=== PATIENT | female | born 1970 | race Caucasian/White ===

== ENCOUNTER 2021-08-04 00:24 | Observation (INO) | payer MEDICARE, MEDICAID, SELFPAY ==
[2021-08-04] VITALS (45 sets, daily range): BP systolic 106–194; BP diastolic 62–96; PULSE 76–100; RESP 12–26; TEMP 35.9–36.7; O2SAT 94–100; BMI 48.3
--- NOTE | 2021-08-04 | ECHO_ITS ---
Patient Info Name: Rosalinda Manrique Age: 50 years : 1970 Gender: Female Ht: 65 in Wt: 290 lbs BSA: 2.53 m2 HR: 78 bpm Heart Rhythm: Sinus Rhythm Technical Quality: Good Exam Date: 08/04/2021 3:56 PM Exam Location: [facility] Patient Status: Inpatient Admit Date: 08/04/2021 Staff Ordering Physician: Myles Huff MD Highway Patrol Commander: Jennifer High RDCS Attending Provider: Urbano Damico MD Referring Physician: Refugio QUIROGA; Exam Type: CA echo doppler color flow Study Info Indications - palpitations chset pain Complete two-dimensional, color flow and Doppler transthoracic echocardiogram is performed. Summary 1. Complete two-dimensional, color flow and Doppler transthoracic echocardiogram is performed. 2. There is mild tricuspid valve regurgitation. 3. Left ventricular chamber dimension is normal. 4. There is mildly increased left ventricular wall thickness. 5. The left ventricular diastolic function is grade I diastolic dysfunction. 6. Left ventricular systolic function is hyperdynamic, estimated at >70%. Left Ventricle Left ventricular chamber dimension is normal. Left ventricular systolic function is hyperdynamic, estimated at >70%. There is mildly increased left ventricular wall thickness. The left ventricular diastolic function is grade I diastolic dysfunction. Right Ventricle Right ventricular chamber dimension is normal. Right ventricular systolic function is normal. Left Atria Left atrial chamber dimension is normal. Right Atria Right atrial chamber dimension is normal. Atrial Septum Intact interatrial septum visualized by color flow imaging. Aortic Valve The aortic valve is probable trileaflet. There is no aortic valve sclerosis. There is no aortic valve stenosis. There is trace aortic valve regurgitation. Pulmonic Valve The pulmonic valve is normal. There is no pulmonic valve stenosis. There is trace pulmonic regurgitation. Mitral Valve The mitral valve has normal leaflets. There is no mitral valve stenosis. There is trace mitral valve regurgitation. Tricuspid Valve There is mild tricuspid valve regurgitation. The tricuspid valve leaflets are normal. There is no significant tricuspid valve stenosis. No pulmonary hypertension, estimated pulmonary arterial systolic pressure is 33 mmHg. Pericardium/Pleural The pericardium appears normal. There is no pericardial effusion. Inferior Vena Cava Normal inferior vena cava with >50% collapse upon inspiration consistent with normal right atrial pressure, 8 mmHg. Aorta The aortic root size at the sinus of Valsalva is normal. Left Ventricular Outflow Tract Name Value Normal LVOT 2D LVOT Diameter 2.0 cm LVOT Doppler LVOT Peak Gradient 7 mmHg LVOT Mean Gradient 4 mmHg LVOT VTI 29 cm LVOT VTI/AV VTI Ratio 1.0 LVOT Stroke Volume 92 ml LVOT CO 19.0 l/min LVOT CI 7.5 l/min/m2
--- NOTE | ~2021-08-04 | CT_ITS ---
EXAMINATION: CTA chest PE abdomen pel DATE: 08/04/2021 03:00 INDICATION: Chest pain, elevated d-dimer. Elevated serum lipase and liver function tests TECHNIQUE: Computed tomography (CT) of the chest, abdomen and pelvis was performed without intravenou s contrast. Automated exposure control and iterative reconstruction technique were employed. Exam dos e: 2398.02 mGy-cm total exam DLP. COMPARISON: None FINDINGS: There is diagnostic contrast enhancement of pulmonary embolism evidence of pulmonary emboli sm. No thoracic aortic aneurysm or dissection. Heart size is within normal range. No pericardial or pleural effusion. No hilar or mediastinal mass lesion or lymphadenopathy. 4 mm left lower lobe nodule, likely a benign granuloma. There is mild discoid atelectasis or scarring in the right lower lobe and minimal bilateral upper and lower lobe dependent atelectasis. Small sliding hiatal hernia. Prominent diffuse hepatic steatosis. No hepatic space-occupying mass lesion is evident. The gallbladd er is distended. No bile duct or pancreatic duct dilatation. No pancreatic mass lesion or calcificati on or peripancreatic stranding or fluid. Normal splenic size. Normal morphology of the adrenal glands. 3 mm nonobstructing right renal calculus. Occasional bilateral small renal cysts, the largest approxi mately 9 mm. No ureteral calculus or hydroureteronephrosis. The urinary bladder is unremarkable. Status post hysterectomy. Normal caliber of the abdominal aorta. No intraperitoneal or retroperitoneal or pelvic mass lesion or adenopathy or ascites. Normal appendix. Minimal left colon diverticulosis; no CT evidence of diverticulitis. No bowel obstru ction or intraperitoneal free air. Battery pack is noted in the posterior right upper abdominal wall with electrodes extending along the posterior upper abdomen and thorax to the cervical spinal canal. Severe degenerative disc disease and mild retrolisthesis at L3-4. There is moderately severe degenera tive disc disease and minimal retrolisthesis at L5-S1. Electrodes are noted in the posterior cervical spinal canal. Status post surgical cervical spine spin al fusion. IMPRESSION: No evidence of pulmonary embolism Prominent diffuse hepatic steatosis Small hiatal hernia Small nonobstructing right renal stone Bilateral renal subcentimeter cysts Minimal left colon diverticulosis; no CT evidence of diverticulitis Status post hysterectomy Reviewed, dictated and finalized at [facility]. Reviewed, dictated and finalized at location [facility]. ER HELPER
--- NOTE | ~2021-08-04 | US_ITS ---
EXAMINATION: US right upper quadrant EXAM DATE: 08/04/2021 12:43 INDICATION: Right upper quadrant pain. TECHNIQUE: Multiple grayscale and Doppler images of the abdomen right upper quadrant were obtained (b y a technologist who performed the scan) and subsequently reviewed. There is no prior study for kimberly moe. FINDINGS: The pancreatic head and body are normal in appearance. The pancreatic tail is not visualized. There is echogenic liver parenchyma, hepatic steatosis. There are no focal liver lesions identified. Th ere is no evidence of intrahepatic biliary duct dilation. Portal venous flow was seen in the hepatop edal, normal direction and has normal Doppler waveform. No right-sided hydronephrosis. Common bile duct measures 6 mm, which is normal. The gallbladder wall is normal in thickness, with mi ld amount of distention. No sonographic evidence of pericholecystic fluid. There is no cholelithias es. Technologist reports patient had tenderness over the gallbladder region, but this is nonspecific in absence of other sonographic findings to suggest cholecystitis. IMPRESSION: 1. Mildly distended but otherwise unremarkable gallbladder. 2. Hepatic steatosis. Reviewed, dictated and finalized at location [facility]. ER
--- NOTE | ~2021-08-04 | XR_ITS ---
XR chest 2V DATE: 08/04/2021 00:56 INDICATION: Chest pain, elevated d-dimer. Elevated lipase and liver function tests. TECHNIQUE: AP and lateral views COMPARISON: None FINDINGS: Normal heart size. No hilar or mediastinal enlargement. No pulmonary infiltrate or consolid ation, pleural effusion or pulmonary vascular congestion or pneumothorax. Status post surgical cervical spinal fusion. Electrodes extending along the posterior abdomen and tho rax into the cervical spine area. IMPRESSION: No active cardiopulmonary disease Reviewed, dictated and finalized at location [facility]. [facility]
--- NOTE | 2021-08-04 00:36 | ECG_ITS ---
Measurements Intervals [place] Rate: 95 P: 42 [place]: 148 QRS: 1 QRSD: 109 T: 10 QT: 323 QTc: 407 Interpretive Statements SINUS RHYTHM POSSIBLE LEFT ATRIAL ENLARGEMENT BORDERLINE T WAVE ABNORMALITY- INFERIOR LEADS BASELINE ARTIFACT- I, II, III, AVR, AVL, AVF BORDERLINE ECG Electronically Signed On 08-04-2021 6:09:03 [employer] IN[employer] by Ruslan Ac D.O.
--- NOTE | 2021-08-04 00:49 | PC.NURSE ---
Pt to XRAY via stretcher at this time.
[2021-08-04] MEDS: NITROGLYCERIN SL 0.4 MG TABLET SUBLINGUAL (00:59)
--- NOTE | 2021-08-04 00:59 | PC.NURSE ---
Pt given 1st SL nitro tab, pain is an 8/10 currently.
--- NOTE | 2021-08-04 01:04 | PC.NURSE ---
2nd SL nitro given at this time, currently rates pain an 8/ - denies any relief
--- NOTE | 2021-08-04 01:09 | PC.NURSE ---
Pt given 3rd SL nitro, rates pain an 8/10, denies any relief.
[2021-08-04 01:20] LABS: Basophils Percent Auto 0.3 % (0.2-1.2); Eosinophils Absolute Auto 0.1 K/mm3 (0-0.3); Eosinophils Percent Auto 0.9 % (0-4.4); Hematocrit 40.2 % (37.0-47.0); Hemoglobin 13.4 g/dL (12.0-15.0); Immature Granulocyte Absolute 0.07 K/mm3 (0.00-0.031); Immature Granulocyte Percent A 0.8 % (0-0.5); Lymphocytes Absolute Auto 1.74 K/mm3 (0.9-3.2); Lymphocytes Percent Auto 19.1 % (18.3-44.2); Mean Corpuscular HGB Conc 33.3 g/dl (32-36); Mean Corpuscular Hemoglobin 29.3 pg (26-34); Monocytes Absolute Auto 0.2 K/mm3 (0.1-0.6); Monocytes Percent Auto 2.6 % (2.6-8.5); Neutrophils Absolute Auto 6.9 K/mm3 (1.3-6.7); Neutrophils Percent Auto 76.3 % (45.5-73.1); Platelet Count Result 221 k/mm3 (150-375); Red Blood Count 4.57 M/mm3 (4.2-5.4); White Blood Count 9.1 K/mm3 (4.5-10.0)
--- NOTE | 2021-08-04 01:22 | ED.CHESTPAIN ---
HPI - Chest Pain General Chief Complaint: Chest Pain Stated Complaint: chest pain Time Seen by Provider: 08/04/21 00:28 Source: patient Mode of arrival: EMS Limitations: no limitations History of Present Illness HPI narrative: This is a 50 year old female who presents for evaluation of chest pain. Patient states approximately 3 hours ago she was developed sudden onset of midsternal chest pain with nausea and vomiting. She describes her pain as squeezing and pressure. She reports some pain radiates to her back. She also reports shortness of breath and feeling that she can not take breath. She denies associated cough, fever, runny nose, congestion, leg swelling. She also denies history of DVT/PE. This pain feels similar to previous episode of panic attack but it feels more severe. She reports having cardiac evaluation over 15 years ago. Related Data Allergies Allergy/AdvReac Type Severity Reaction Status Date / Time meperidine Allergy Unknown Verified 08/04/21 00:35 Penicillins Allergy Unknown unknown Verified 08/04/21 00:35 prochlorperazine Allergy Unknown unknown Verified 08/04/21 00:35 Sulfa (Sulfonamide Allergy Unknown unknown Verified 08/04/21 00:35 Antibiotics) Review of Systems Review of Systems: All systems reviewed & are unremarkable except as noted in HPI and below PMFSH Past Medical History Medical History (Updated 08/04/21 @ 06:38 by Meagan Singer MD) Anxiety Chronic pain syndrome Hyperparathyroidism Hypertension Neuropathy Surgical History Surgical History (Updated 08/04/21 @ 01:56 by Meagan Singer MD) H/O parathyroidectomy H/O: hysterectomy S/P insertion of spinal cord stimulator Social History Social History (Updated 08/04/21 @ 01:23 by Meagan Singer MD) Smoking status: Never smoker Exam Const: General: alert; No diaphoretic Nutritional Appearance: obese Orientation/consciousness: patient oriented x3 Eyes: EOM: EOMs intact bilaterally Chest: Chest palpation & inspection: normal inspection of the chest Resp: Effort & Inspection: normal respiratory effort and no retractions Auscultation: clear to auscultation bilaterally Cardio: Rate: regular rate Rhythm: regular rhythm Heart sounds: no murmurs GI: GI Palp: Yes Soft to palpation, No Tenderness to palpation present (GI) and No Guarding due to palpation present (GI) Auscultation: normal bowel sounds Skin: General skin exam: normal color Rashes: no rashes Neuro: General: patient oriented x3, moves all extremities and CN's II-XI intact bilaterally Extrem: General: normal to inspection and no pedal edema Psych: Mental Status: mental status grossly normal Affect: normal affect Course Reevaluation(s) Reevaluation #1: I Discussed with patient potassium is low. She was recently started on HCTZ and she forgot to take her oral potassium. She also takes furosemide intermittently. She also reports intermittently elevated LFTs . She was made aware of plan to get CT and potassium supplementation Date: 08/04/21 Time: 01:54 Consultations Consultation #1: Dr. Damico agrees to obs patient to hospitalist service. Date: 08/04/21 Time: 04:06 Consultation #2: Dr. mendoza agrees to consult for chest pain Date: 08/04/21 Time: 06:38 Vital Signs Vital signs: Vital Signs Temperature 98.1 F 08/04/21 00:25 Pulse Rate 99 08/04/21 00:25 Respiratory Rate 12 08/04/21 00:25 Blood Pressure 194/93 H 08/04/21 00:25 Pulse Oximetry 99 08/04/21 00:25 Temperature 98.1 F 08/04/21 00:25 Pulse Rate 94 08/04/21 06:26 Respiratory Rate 18 08/04/21 06:26 Blood Pressure 154/62 H 08/04/21 05:14 Pulse Oximetry 96 08/04/21 06:26 MDM - Chest Pain Lab Data Attestation: I reviewed the patient's lab results. Result diagrams: 08/04/21 00:48 08/04/21 03:47 Labs: Lab Results 08/04/21 08/04/21 08/04/21 Range/Units 00:48 00:48 00:48 WBC 9.1 (4.5-10.0)
[2021-08-04] MEDS: LORazepam INJ (*CRX) 2 MG/ML VIAL 1 MG IV PUSH (01:31)
[2021-08-04 01:38] LABS: Partial Thromboplastin Time 21.8 SECONDS (22.3-36.8)
[2021-08-04 01:41] LABS: D Dimer 0.73 ug/mL (<0.48)
[2021-08-04 01:46] LABS: Troponin I < 0.012 ng/mL (0.000-0.034)
[2021-08-04 01:47] LABS: Alanine Aminotransferase 106 U/L (4-35); Albumin Level 4.2 g/dL (3.5-5.1); Alkaline Phosphatase 148 U/L (38-126); Anion Gap 12 mmol/L (8-16); Aspartate Amino Transferase 121 U/L (14-36); Bilirubin,Total 0.7 mg/dL (0.2-1.3); Blood Urea Nitrogen 18 mg/dL (7-17); Calcium 8.6 mg/dL (8.4-10.2); Carbon Dioxide 37 mmol/L (22-30); Chloride 85 mmol/L (98-107); Estimated CRCL calculation 102 ml/min; Estimated Glomerular Filt Rate > 60; Glucose 146 mg/dL (65-110); Lipase 432 U/L (23-300); Potassium 2.5 mmol/L (3.4-5.0); Sodium 134 mmol/L (137-145)
[2021-08-04] MEDS: POTASSIUM CHLORIDE 20 MEQ TABLET 40 MEQ PO ×2 (02:15→14:49)
[2021-08-04] MEDS: methylPREDNISolone SOD SUCC 125 MG VIAL IV PUSH (02:17)
[2021-08-04] MEDS: diphenhydrAMINE HCl INJ 50 MG/ML VIAL IV PUSH (02:18)
[2021-08-04] MEDS: POTASSIUM CHLORIDE INJ 40 MEQ in SODIUM CHLORIDE 0.9% IV 500 ML 130 MEQ IVPB (04:13)
[2021-08-04] MEDS: oxyCODONE/ACETAMINOPHEN (*CRX) 5-325 MG TABLET 2 TABLET PO (04:16)
[2021-08-04] MEDS: PANTOPRAZOLE SODIUM IV 40 MG VIAL IV PUSH ×2 (04:17→08:29)
[2021-08-04 04:19] LABS: Troponin I < 0.012 ng/mL (0.000-0.034)
[2021-08-04 04:21] LABS: Potassium 2.6 mmol/L (3.4-5.0)
[2021-08-04 05:33] LABS: SARS-CoV-2 RNA PCR Negative
[2021-08-04 08:12] LABS: Troponin I < 0.012 ng/mL (0.000-0.034)
[2021-08-04] MEDS: MORPHINE SULFATE (*CRX) 4 MG/ML INJ IV PUSH ×8 (08:29→23:57)
[2021-08-04] MEDS: ONDANSETRON INJ 4 MG/2 ML VIAL IV PUSH (10:29)
--- NOTE | 2021-08-04 11:50 | PC.NURSE ---
Dr Fergusonf here to assess patient
--- NOTE | 2021-08-04 12:06 | PM.IMHP ---
H&P: HPI History of Present Illness Date/Time: 08/04/21 12:06 ED-HPI narrative: This is a 50 year old female who presents for evaluation of chest pain. Patient states approximately 3 hours ago she was developed sudden onset of midsternal chest pain with nausea and vomiting. She describes her pain as squeezing and pressure. She reports some pain radiates to her back. She also reports shortness of breath and feeling that she can not take breath. She denies associated cough, fever, runny nose, congestion, leg swelling. She also denies history of DVT/PE. This pain feels similar to previous episode of panic attack but it feels more severe. She reports having cardiac evaluation over 15 years ago. 08/04/2021 patient presented with complaint of chest 3 sets of cardiac enzymes are negative there are no acute changes on EKG however it does show tachycardia seen by Cardiology does not suspect the fibrillation, currently patient states chest pain has improved however not patient complains of right upper quadrant pain and nausea some vomiting, to further evaluate will do the right upper quadrant ultrasound will consult general surgeon for further recommendation will continue to monitor. patient is admitted as observation status. Chief Complaint: chest pain Review of Systems Review of Systems: All systems reviewed & are unremarkable except as noted in HPI and below PMFSH Past Medical History Medical History Anxiety Chronic pain syndrome Hyperparathyroidism Hypertension Neuropathy Surgical History Surgical History H/O parathyroidectomy H/O: hysterectomy S/P insertion of spinal cord stimulator Social History Social History Smoking status: Never smoker Alcohol intake: never Substance use: never Spiritual care concerns: No Meds Home Medications and Allergies Home Medications Medication Instructions Recorded Confirmed Type Adults Multivitamin 1 tablet PO DAILY 08/04/21 08/04/21 History amitriptyline 10 mg HS 08/04/21 08/04/21 History amlodipine 10 mg PO DAILY 08/04/21 08/04/21 History cyanocobalamin (vitamin B-12) 1,000 mcg PO DAILY 08/04/21 08/04/21 History dextroamphetamine-amphetamine 20 mg PO DAILY 08/04/21 08/04/21 History [Adderall] duloxetine 30 mg PO DAILY 08/04/21 08/04/21 History ergocalciferol (vitamin D2) 50,000 unit WEEKLY 08/04/21 08/04/21 History estradiol 1 mg PO DAILY 08/04/21 08/04/21 History famotidine [Pepcid] 40 mg PO BID 08/04/21 08/04/21 History gabapentin 600 mg PO BID 08/04/21 08/04/21 History hydrochlorothiazide 25 mg DAILY 08/04/21 08/04/21 History hydroxychloroquine 200 mg PO BID 08/04/21 08/04/21 History hydroxyzine HCl 50 mg PO TID PRN 08/04/21 08/04/21 History lamotrigine 200 mg PO DAILY 08/04/21 08/04/21 History levomefolate calcium [Deplin] 15 mg PO DAILY 08/04/21 08/04/21 History methotrexate sodium 20 mg PO WEEKLY 08/04/21 08/04/21 History modafinil 200 mg PO QAM 08/04/21 08/04/21 History oxycodone-acetaminophen [Percocet] 1 tablet PO Q4H PRN 08/04/21 08/04/21 History potassium chloride 20 meq PO BID PRN 08/04/21 08/04/21 History promethazine 25 mg RECTAL Q6H PRN 08/04/21 08/04/21 History ropinirole 2 mg PO HS 08/04/21 08/04/21 History tizanidine 4 mg TID PRN 08/04/21 08/04/21 History zolpidem 12.5 mg PO HS 08/04/21 08/04/21 History Allergies Allergy/AdvReac Type Severity Reaction Status Date / Time meperidine Allergy Unknown Verified 08/04/21 00:35 Penicillins Allergy Unknown unknown Verified 08/04/21 00:35 prochlorperazine Allergy Unknown unknown Verified 08/04/21 00:35 Sulfa (Sulfonamide Allergy Unknown unknown Verified 08/04/21 00:35 Antibiotics) Vital Signs Vital Signs - 24 hr 08/04/21 00:25 08/04/21 00:35 08/04/21 01:00 Temperature 98.1 F Pulse Rate 99 93 90 Respiratory Rate 12
--- NOTE | 2021-08-04 12:08 | PC.NURSE ---
Dr. Gloria aware of patient and awaiting gallbladder ultrasound.
--- NOTE | 2021-08-04 12:20 | PC.NURSE ---
Dr Gloria here to assess patient. gallbladder US complete
--- NOTE | 2021-08-04 12:23 | PM.IMHP ---
H&P: HPI History of Present Illness Date/Time: 08/04/21 12:23 Pt is a 50 y/o F presenting to ED c/o severe chest pain, pressure radiating to back. Pt reports associated bloating, nausea. Pt reports similar previous episodes although less severe. Pt had been admitted to hospitalist service and cardiac workup has been initiated. CT does suggest GB distension. Labs show sl increase in liver enzymes and mild pancreatitis. Pt c h/o gastric bypass about 15 yrs ago. Chief Complaint: chest pain Review of Systems Constitutional: Constitutional: Reports as per HPI, Denies anorexia, Denies chills, Reports fatigue, Denies fever(s), Denies increased appetite, Reports lethargy, Reports malaise, Reports poor appetite, Reports weakness, Denies weight gain and Denies weight loss Eyes: Eyes: Reports no additional eye complaints ENT: Reports system reviewed and no additional complaints, except as documented Cardiovascular: Cardiovascular: Reports as per HPI, Reports chest pain, Denies leg edema and Reports dyspnea Respiratory: Respiratory: Reports dyspnea Gastrointestinal: Gastrointestinal: Reports abdominal pain, Reports bloating, Reports GI cramping, Reports heartburn, Reports nausea and Denies vomiting Genitourinary: Genitourinary: Reports no additional female genitourinary complaints Musculoskeletal: Musculoskeletal: Reports no additional musculoskeletal complaints Integumentary/Breasts: Skin/Breast: Reports system reviewed and no additional complaints, except as docu Neurologic: Reports system reviewed and no additional complaints, except as documented Psychiatric: Psychiatric: Reports no additional psychiatric complaints Endocrine: Endocrine: Reports no additional endocrine complaints Hematologic/Lymphatic: Hematologic/Lymphatic: Reports no additional hematologic/lymphatic complaints Allergic/Immunologic: Allergic/Immunologic: Reports no additional allergic/immunologic complaints [facility] Past Medical History Medical History Anxiety Chronic pain syndrome Hyperparathyroidism Hypertension Neuropathy Surgical History Surgical History H/O parathyroidectomy H/O: hysterectomy S/P insertion of spinal cord stimulator Social History Social History Smoking status: Never smoker Comments FH - denies CRC, IBD, known biliary dz Meds Home Medications and Allergies Home Medications Medication Instructions Recorded Confirmed Type amitriptyline 10 mg DAILY 08/04/21 08/04/21 History duloxetine 30 mg PO DAILY 08/04/21 08/04/21 History ergocalciferol (vitamin D2) 50,000 unit WEEKLY 08/04/21 History hydrochlorothiazide 25 mg DAILY 08/04/21 08/04/21 History tizanidine 4 mg TID PRN 08/04/21 History zolpidem 12.5 mg PO HS 08/04/21 08/04/21 History Allergies Allergy/AdvReac Type Severity Reaction Status Date / Time meperidine Allergy Unknown Verified 08/04/21 00:35 Penicillins Allergy Unknown unknown Verified 08/04/21 00:35 prochlorperazine Allergy Unknown unknown Verified 08/04/21 00:35 Sulfa (Sulfonamide Allergy Unknown unknown Verified 08/04/21 00:35 Antibiotics) Vital Signs Vital Signs - 24 hr 08/04/21 00:25 08/04/21 00:35 08/04/21 01:00 Temperature 36.7 C Pulse Rate 99 93 90 Respiratory Rate 12 13 Blood Pressure 194/93 H 157/74 H Pulse Oximetry 99 98 08/04/21 01:01 08/04/21 01:09 08/04/21 01:33 Temperature Pulse Rate 100 88 Respiratory Rate 22 H 20 Blood Pressure 119/65 173/82 H Pulse Oximetry 99 94 98 08/04/21 01:38 08/04/21 01:45 08/04/21 01:47 Temperature Pulse Rate 92 91 92 Respiratory Rate 17 13 16 Blood Pressure 176/88 H Pulse Oximetry 96 96 96 08/04/21 02:00 08/04/21 02:02 08/04/21 02:15 Temperature Pulse Rate 93 93 93 Respiratory Rate 17 15 13 Blood Pressure 164/78 H Pulse Oximetry 98 99 1
--- NOTE | 2021-08-04 13:23 | PM.CNCAR ---
Assessment and Plan Assessment and plan (1) Chest pain: Code(s): R07.9 - Chest pain, unspecified Status: Acute Assessment and Plan: Noncardiac chest pain. Chest pain is related to her gallbladder (2) Biliary acute pancreatitis: Code(s): K85.10 - Biliary acute pancreatitis without necrosis or infection Status: Acute Assessment and Plan: Her surgery (3) Acute hypokalemia: Code(s): E87.6 - Hypokalemia Status: Acute Assessment and Plan: Will replace a KCL 40 mEq p.o. x1. Probably related IV chlorothiazide (4) Hypertension: Code(s): I10 - Essential (primary) hypertension Status: Acute Assessment and Plan: Above goal but she is in pain also. (5) Palpitations: Code(s): R00.2 - Palpitations Status: Acute Assessment and Plan: Likely related to hypokalemia and benign. Will check a TSH, free T4 level, magnesium level and replace her potassium as detailed above. Will also check a 2D echocardiogram Doppler to ensure no structural abnormalities History of Present Illness History of Present Illness Consult date/time: 08/04/21 13:23 Requesting physician: Meagan Singer MD Consult reason: chest pain Reason For Visit: hypokalemia, chest pain, hypertension Narrative: Reason for consultation: Chest pain Date of service 08/04/2021 Requesting provider: Dr. Singer History patient is a 50-year-old female who does not have known cardiac history. She does have high blood pressure who presented to the hospital with nausea vomiting and epigastric/lower chest pain. Patient has had intermittent episodes of right upper quadrant pain for years. Over the past couple of days though had been much more frequent and then started yesterday and was constant for 3 hours prior to coming to the emergency department. She did have some radiation into her back. She also felt short of breath at the same time. Because of these symptoms she came to the hospital for further workup evaluation treatment. She ruled out for myocardial infarction. EKG was unremarkable. Further workup shows dilated gallbladder with elevated AST ALT and lipase. Surgeries already been consulted. Prior to these episodes, she has no exertional chest pain, syncope, presyncope, paroxysmal nocturnal dyspnea, orthopnea, edema. She has been having some palpitations which feels like skipped beats. This has gotten worse since restarting hydrochlorothiazide for blood pressure. Lab workup did show significant hypokalemia Review of Systems Review of Systems: All systems reviewed & are unremarkable except as noted in HPI and below Constitutional: Constitutional: Denies weakness Eyes: Eyes: Denies blurry vision ENT: Reports Normal hearing present Cardiovascular: Cardiovascular: Reports chest pain Respiratory: Respiratory: Reports dyspnea Gastrointestinal: Gastrointestinal: Reports abdominal pain Genitourinary: Genitourinary: Denies flank pain Musculoskeletal: Musculoskeletal: Reports back pain and Denies neck pain Integumentary/Breasts: Skin/Breast: Denies dry skin Neurologic: Denies headache(s) Psychiatric: Psychiatric: Denies anxiety and Denies confusion Endocrine: Endocrine: Denies fatigue Hematologic/Lymphatic: Hematologic/Lymphatic: Denies easy bleeding Allergic/Immunologic: Allergic/Immunologic: Denies GI upset with certain foods PMFSH Past Medical History Medical History Anxiety Chronic pain syndrome Hyperparathyroidism Hypertension Neuropathy Surgical History Surgical History H/O parathyroidectomy H/O: hysterectomy S/P insertion of spinal cord stimulator Social History Social History Smoking status: Never smoker Meds Home Medications and Allergies Home Medications Medication I
--- NOTE | 2021-08-04 13:55 | PC.NURSE ---
Dr Huff ordered for PO K+. patient has not had K+ level rechecked after having IV and po interventions previously. Spoke with DIE DESIGNER and new orders received
--- NOTE | 2021-08-04 14:35 | PC.NURSE ---
patient's family present at this time
[2021-08-04 14:36] LABS: Anion Gap 16 mmol/L (8-16); Blood Urea Nitrogen 16 mg/dL (7-17); Carbon Dioxide 27 mmol/L (22-30); Chloride 92 mmol/L (98-107); Estimated CRCL calculation 132 ml/min; Estimated Glomerular Filt Rate > 60; Glucose 146 mg/dL (65-110); Potassium 3.2 mmol/L (3.4-5.0); Sodium 135 mmol/L (137-145)
--- NOTE | 2021-08-04 17:07 | PC.NURSE ---
clarifying diet order with MD Rosenberg
--- NOTE | 2021-08-04 17:21 | PC.NURSE ---
MD thakur verified diet current diet low fat NPo at midnight and N.o received for cmp and cbc in am.
[2021-08-04] MEDS: HYDROXYCHLOROQUINE SULFATE 200 MG TABLET PO (18:27)
[2021-08-04] MEDS: GABAPENTIN 300 MG CAPSULE 600 MG PO (18:27)
[2021-08-04] MEDS: FAMOTIDINE 20 MG TABLET 40 MG PO (18:27)
--- NOTE | 2021-08-04 18:43 | PC.NURSE ---
This patient, Rosalinda Manrique, was admitted to [facility] Surg Room 316-01 at 1454. Patient/family oriented to hospital policies and general routines including ID bracelet, bed and alarms, visiting hours, pain management, procedures, bathroom and other care routines, personal items, smoking policy, room service/diet, and visiting hours. Information on how to activate the Rapid Response Team has been discussed. Patient/Family are encouraged to report perceived risks to care and to ask questions if they do not understand what they are told or what they should do.
[2021-08-04] MEDS: AMITRIPTYLINE HCL 10 MG TABLET BY MOUTH (21:16)
[2021-08-04] MEDS: rOPINIRole HCL 1 MG TABLET 2 MG PO (21:17)
[2021-08-05] MEDS: MORPHINE SULFATE (*CRX) 4 MG/ML INJ IV PUSH ×5 (02:35→11:40)
[2021-08-05 05:39] VITALS: BP 149/89; PULSE 100; RESP 18; TEMP 35.9; O2SAT 97
[2021-08-05 06:53] LABS: Hematocrit 37.5 % (37.0-47.0); Hemoglobin 12.4 g/dL (12.0-15.0); Mean Corpuscular HGB Conc 33.1 g/dl (32-36); Mean Corpuscular Hemoglobin 29.5 pg (26-34); Mean Corpuscular Volume 89.3 fl (80-100); Platelet Count Result 185 k/mm3 (150-375); White Blood Count 8.5 K/mm3 (4.5-10.0)
[2021-08-05 06:59] LABS: Alanine Aminotransferase 108 U/L (4-35); Alkaline Phosphatase 160 U/L (38-126); Anion Gap 11 mmol/L (8-16); Aspartate Amino Transferase 110 U/L (14-36); Blood Urea Nitrogen 17 mg/dL (7-17); Calcium 8.9 mg/dL (8.4-10.2); Carbon Dioxide 32 mmol/L (22-30); Chloride 92 mmol/L (98-107); Estimated CRCL calculation 102 ml/min; Estimated Glomerular Filt Rate > 60; Glucose 129 mg/dL (65-110); Lipase 607 U/L (23-300); Magnesium 2.2 mg/dL (1.6-2.3); Potassium 2.9 mmol/L (3.4-5.0); Sodium 135 mmol/L (137-145)
[2021-08-05 08:00] VITALS: PULSE 100; PULSE 98; RESP 18; O2SAT 97
--- NOTE | 2021-08-05 08:36 | PM.PNGS ---
Progress Note: A&P Assessment and Plan (1) Pancreatitis: Code(s): K85.90 - Acute pancreatitis without necrosis or infection, unspecified Status: Acute Assessment and Plan: resolving, ?etiology as U/S did not show any stones, exam benign this am, labs improving, long d/w pt and decision to proceed c low fat diet and likely discharge with f/u as outpt to further workup pancreatitis and poss cholecystectomy Subjective Subjective Date/Time Seen: 08/05/21 08:36 feels better today, brenda low fat diet yest for dinner Review of Systems Review of Systems: All systems reviewed & are unremarkable except as noted in HPI and below Exam Const: General: cooperative, comfortable and no acute distress Nutritional Appearance: obese Orientation/consciousness: patient oriented x3 Resp: Effort & Inspection: normal respiratory effort Auscultation: clear to auscultation bilaterally Cardio: Rate: regular rate Rhythm: regular rhythm GI: Inspection: normal to inspection and non-distended GI Palp: Yes Soft to palpation, No Tenderness to palpation present (GI), No Guarding due to palpation present (GI) and No Rigid due to palpation Objective Data Vital Signs Vital Signs: Vital Signs - 24 hr 08/04/21 09:23 08/04/21 09:30 08/04/21 09:45 Temperature Pulse Rate 89 89 92 Respiratory Rate 15 19 26 H Blood Pressure Pulse Oximetry 95 95 97 08/04/21 09:51 08/04/21 13:08 08/04/21 13:24 Temperature Pulse Rate 89 86 Respiratory Rate 15 Blood Pressure 172/83 H 168/96 H Pulse Oximetry 95 96 08/04/21 14:41 08/04/21 15:10 08/04/21 15:33 Temperature 35.9 C L 36.2 C L Pulse Rate 76 90 84 Respiratory Rate 16 18 16 Blood Pressure 166/76 H 165/91 H 156/73 H Pulse Oximetry 99 94 95 08/04/21 19:50 08/04/21 21:51 08/05/21 05:39 Temperature 36.0 C L 35.9 C L Pulse Rate 93 93 100 Respiratory Rate 18 18 18 Blood Pressure 106/96 H 149/89 H Pulse Oximetry 96 96 97 Intake/Output Intake/Output: Intake & Output 08/02/21 08/03/21 08/04/21 08/05/21 23:59 23:59 23:59 23:59 Intake Total 860 200 Balance 860 200 Meds/Results Medications: Active Medications Generic Name Dose Route Start Last Admin Trade Name Freq PRN Reason Stop Dose Admin Amitriptyline HCl 10 mg 08/04/21 21:00 08/04/21 21:16 Amitriptyline Hcl 10 Mg Tablet BY MOUTH 10 mg HS MABEL Administration Amlodipine Besylate 10 mg 08/05/21 09:00 Amlodipine Besylate 5 Mg Tablet PO DAILY [facility] Cyanocobalamin 1,000 mcg 08/05/21 09:00 Cyanocobalamin 1,000 Mcg Tablet PO DAILY [facility] Diphenhydramine HCl 25 mg 08/05/21 05:36 Diphenhydramine Hcl Inj 50 Mg/Ml Vial IV PUSH Q4H PRN Itching Duloxetine HCl 30 mg 08/05/21 09:00 Duloxetine Hcl 30 Mg Capsule.Dr PO DAILY [facility] Ergocalciferol 50,000 unit 08/05/21 09:00 Ergocalciferol 50,000 Unit Capsule BY MOUTH Fr@0900 [facility] Estradiol 1 mg 08/05/21 09:00 Estradiol 1 Mg Tablet PO DAILY [facility] Famotidine 40 mg 08/04/21 17:00 08/04/21 18:27 Famotidine 20 Mg Tablet PO 40 mg BID MABEL Administration Gabapentin 600 mg 08/04/21 17:00 08/04/21 18:27 Gabapentin 300 Mg Capsule PO 600 mg BID MABEL Administration Hydrochlorothiazide 25 mg 08/05/21 09:00 Hydrochlorothiazide 25 Mg Tablet BY MOUTH DAILY [facility] Hydroxychloroquine Sulfate 200 mg 08/04/21 17:00 08/04/21 18:27 Hydroxychloroquine Sulfate 200 Mg Tablet PO 200 mg BID [facility] Administration Hydroxyzine HCl 50 mg 08/04/21 16:37 Hydroxyzine Hcl 25 Mg Tablet PO TID PRN Itching Potassium Chloride 40 meq/ 520 mls @ 130 mls/hr 08/05/21 07:43 Sodium Chloride IVPB 08/05/21 11:42 ONCE ONE Lamotrigine 200 mg 08/05/21 09:00 Lamotrigine 100 Mg Tablet PO DAILY [facility] Methotrexate 20 mg 08/05/21 09:00 Methotrexate 2.5 Mg Tab (*Chemo) PO Fr@0900 [facility] Miscellaneous Information 1 each 08/04/21 00:01 Zofran/
[2021-08-05] MEDS: POTASSIUM CHLORIDE INJ 40 MEQ in SODIUM CHLORIDE 0.9% IV 500 ML 130 MEQ IVPB (08:38)
[2021-08-05] MEDS: GABAPENTIN 300 MG CAPSULE 600 MG PO (08:39)
[2021-08-05] MEDS: estradioL 1 MG TABLET PO (08:39)
[2021-08-05] MEDS: METHOTREXATE 2.5 MG TAB (*CHEMO) 20 MG PO (08:40)
[2021-08-05] MEDS: hydroCHLOROthiazide 25 MG TABLET BY MOUTH (08:40)
[2021-08-05] MEDS: HYDROXYCHLOROQUINE SULFATE 200 MG TABLET PO (08:41)
[2021-08-05] MEDS: CYANOCOBALAMIN 1,000 MCG TABLET 1000 MCG PO (08:41)
[2021-08-05] MEDS: DULoxetine HCL 30 MG CAPSULE.DR PO (08:41)
[2021-08-05] MEDS: MULTIVITAMINS THERAPEUTIC TAB (*BKC) 1 TABLET PO (08:41)
[2021-08-05] MEDS: lamoTRIgine 100 MG TABLET 200 MG PO (08:41)
[2021-08-05] MEDS: FAMOTIDINE 20 MG TABLET 40 MG PO (08:41)
[2021-08-05] MEDS: amLODIPine BESYLATE 5 MG TABLET 10 MG PO (08:41)
[2021-08-05] MEDS: modafiniL (*CRX) 200 MG TABLET PO (08:42)
[2021-08-05] MEDS: PANTOPRAZOLE SODIUM IV 40 MG VIAL IV PUSH (08:42)
[2021-08-05 08:57] LABS: Anion Gap 9 mmol/L (8-16); Blood Urea Nitrogen 16 mg/dL (7-17); Calcium 9.1 mg/dL (8.4-10.2); Carbon Dioxide 34 mmol/L (22-30); Chloride 91 mmol/L (98-107); Estimated CRCL calculation 91 ml/min; Estimated Glomerular Filt Rate > 60; Glucose 131 mg/dL (65-110); Sodium 134 mmol/L (137-145)
--- NOTE | 2021-08-05 09:39 | PC.NURSE ---
family stated pt anxious about swallowing pills, reported to [facility], swallow study ordered per [facility].
[2021-08-05] MEDS: POTASSIUM CHLORIDE 20 MEQ TABLET 40 MEQ PO (09:43)
[2021-08-05] MEDS: ERGOCALCIFEROL 50,000 UNIT CAPSULE 50000 UNITS BY MOUTH (10:13)
[2021-08-05 12:18] VITALS: PULSE 96
[2021-08-05 12:20] VITALS: PULSE 96
[2021-08-05 13:20] LABS: Anion Gap 8 mmol/L (8-16); Blood Urea Nitrogen 17 mg/dL (7-17); Carbon Dioxide 31 mmol/L (22-30); Chloride 94 mmol/L (98-107); Estimated CRCL calculation 91 ml/min; Estimated Glomerular Filt Rate > 60; Glucose 156 mg/dL (65-110); Potassium 3.7 mmol/L (3.4-5.0); Sodium 133 mmol/L (137-145)
--- NOTE | 2021-08-05 14:00 | PM.DS ---
DS: Admitting Diagnosis Discharge Date 08/05/2021 Admitting Diagnosis chest pain DS: Discharge Diagnosis Discharge Diagnosis (1) Pancreatitis: Code(s): K85.90 - Acute pancreatitis without necrosis or infection, unspecified Status: Acute Assessment and Plan: ED-HPI narrative: This is a 50 year old female who presents for evaluation of chest pain. Patient states approximately 3 hours ago she was developed sudden onset of midsternal chest pain with nausea and vomiting. She describes her pain as squeezing and pressure. She reports some pain radiates to her back. She also reports shortness of breath and feeling that she can not take breath. She denies associated cough, fever, runny nose, congestion, leg swelling. She also denies history of DVT/PE. This pain feels similar to previous episode of panic attack but it feels more severe. She reports having cardiac evaluation over 15 years ago. 08/04/2021 patient presented with complaint of chest 3 sets of cardiac enzymes are negative there are no acute changes on EKG however it does show tachycardia seen by Cardiology does not suspect the fibrillation, currently patient states chest pain has improved however not patient complains of right upper quadrant pain and nausea some vomiting, to further evaluate will do the right upper quadrant ultrasound will consult general surgeon for further recommendation will continue to monitor. (2) Palpitations: Code(s): R00.2 - Palpitations Status: Acute Assessment and Plan: patient was seen by Cardiology does not suspect atrial fibrillation most likely secondary to hyperkalemia will monitor and supplement (3) Acute hypokalemia: Code(s): E87.6 - Hypokalemia Status: Acute Assessment and Plan: most likely secondary to hydrochlorothiazide and poor p.o. intake, will hold hydrochlorothiazide and will monitor and supplement. (4) Hypertension: Code(s): I10 - Essential (primary) hypertension Status: Acute Assessment and Plan: upon arrival patient blood pressure was elevated most likely secondary to pain, is trending down, DS: Summary Hospital Course Reason for hospitalization: ED-HPI narrative: This is a 50 year old female who presents for evaluation of chest pain. Patient states approximately 3 hours ago she was developed sudden onset of midsternal chest pain with nausea and vomiting. She describes her pain as squeezing and pressure. She reports some pain radiates to her back. She also reports shortness of breath and feeling that she can not take breath. She denies associated cough, fever, runny nose, congestion, leg swelling. She also denies history of DVT/PE. This pain feels similar to previous episode of panic attack but it feels more severe. She reports having cardiac evaluation over 15 years ago. 08/04/2021 patient presented with complaint of chest 3 sets of cardiac enzymes are negative there are no acute changes on EKG however it does show tachycardia seen by Cardiology does not suspect the fibrillation, currently patient states chest pain has improved however not patient complains of right upper quadrant pain and nausea some vomiting, to further evaluate will do the right upper quadrant ultrasound will consult general surgeon for further recommendation will continue to monitor. patient is admitted as observation status. Chief Complaint: chest pain Hospital Course: today patient abdominal pain is better, right upper quadrant ultrasound did not show cholecystitis, her lipase a mildly elevated seen by does not recommend any surgical intervention, most likely patient has mild pancreatitis secondary to mildly inflamed gallbladder, patient is able to tolerate her diet is clinically stable will discharge the patient today Status at Discharge Functional status at discharge: independent ambulation Overall status at discharge: patient is back to baseline Time Spent with
[2021-08-05] MEDS: POTASSIUM CHLORIDE 20 MEQ PACKET (FOR LIQUID) 40 MEQ PO (14:08)
== END 2021-08-05 14:52 | disposition home or self-care (01) ==
LOC: ANHED 01:07 → ANHIMU 06:38 → ANH3MEDSUR 08-05 14:00 → ANHIMU 08-09 09:34
PROVIDERS: Nurse Practitioner; Surgery; Admitting Provider Internal Medicine; Emergency Provider General Practice; Visit Provider Family Medicine
DX: K85.10 Biliary acute pancreatitis without necrosis or infection (principal); R00.2 Palpitations; E87.6 Hypokalemia; R07.9 Chest pain, unspecified; R11.2 Nausea with vomiting, unspecified; R06.02 Shortness of breath; I10 Essential (primary) hypertension; E21.3 Hyperparathyroidism, unspecified; F41.9 Anxiety disorder, unspecified; G89.4 Chronic pain syndrome; G62.9 Polyneuropathy, unspecified; Z98.84 Bariatric surgery status; Z20.822 Contact with and (suspected) exposure to COVID-19
CPT/HCPCS: 36415; 71046; 71275; 74177; 76705; 80048; 80053; 83690; 83735; 84132; 84484; 85025; 85027; 85380; 85610; 85730; 93005; 93306; 96365; 96366; 96375; 96376; 99285; A9270; C9113; C9803; G0378; J1200; J2060; J2270; J2405; J2930; J3480; J7040; Q9967; U0003; U0005

== ENCOUNTER 2021-10-23 08:36 | Inpatient (IN) | payer MEDICARE, MEDICAID, SELFPAY ==
[2021-10-23] VITALS (26 sets, daily range): BP systolic 99–177; BP diastolic 57–99; PULSE 82–108; RESP 16–27; TEMP 36.6–36.8; O2SAT 90–100; BMI 42.2
[2021-10-23] MEDS: CHARCOAL ACTIVATED LIQUID 50 GM/240 ML BOTTLE PO (08:48)
--- NOTE | 2021-10-23 08:52 | ECG_ITS ---
Measurements Intervals [place] Rate: 100 P: 38 MD: 138 QRS: 7 QRSD: 96 T: 16 QT: 365 QTc: 471 Interpretive Statements SINUS TACHYCARDIA POSSIBLE INFERIOR MYOCARDIAL INFARCTION , PROBABLY OLD [40+ ms Q WAVE AND/OR ST/T ABNORMALITY IN II/aVF] ABNORMAL ECG COMPARED TO ECG 08/04/2021 00:33:41 SINUS TACHYCARDIA NOW PRESENT MYOCARDIAL INFARCT FINDING NOW PRESENT Electronically Signed On 10-24-2021 13:50:29 CDT by Myles Huff M.D.
--- NOTE | 2021-10-23 09:10 | ED.OVERDOSE ---
HPI - Overdose General Chief Complaint: Overdose Stated Complaint: unintentional norvasc overdose Time Seen by Provider: 10/23/21 08:48 Source: patient History of Present Illness HPI Narrative: Patient presents with an axonal ingestion of Norvasc. Patient reports she was attempting to take her lamotrigine grabbed the wrong bottle and took approximately 80 mg of Norvasc she called poison control and was referred to the ER for evaluation. Patient ports she feels lightheaded and dizzy. She denies any chest pain or short of breath. Denies any nausea or vomiting. She denies any intent to harm herself. Related Data Home Medications Medication Instructions Recorded Confirmed Adults Multivitamin 1 tablet PO DAILY 08/04/21 10/23/21 amitriptyline 10 mg HS 08/04/21 10/23/21 amlodipine 10 mg PO DAILY 08/04/21 10/23/21 cyanocobalamin (vitamin B-12) 1,000 mcg PO DAILY 08/04/21 10/23/21 dextroamphetamine-amphetamine 20 mg PO DAILY 08/04/21 10/23/21 [Adderall] duloxetine 30 mg PO DAILY 08/04/21 10/23/21 ergocalciferol (vitamin D2) 50,000 unit WEEKLY 08/04/21 10/23/21 estradiol 1 mg PO DAILY 08/04/21 10/23/21 famotidine [Pepcid] 40 mg PO BID 08/04/21 10/23/21 gabapentin 600 mg PO BID 08/04/21 10/23/21 hydroxychloroquine 200 mg PO BID 08/04/21 10/23/21 hydroxyzine HCl 50 mg PO TID PRN 08/04/21 10/23/21 lamotrigine 200 mg PO DAILY 08/04/21 10/23/21 levomefolate calcium 15 mg PO DAILY 08/04/21 10/23/21 methotrexate sodium 20 mg PO WEEKLY 08/04/21 10/23/21 modafinil 200 mg PO QAM 08/04/21 10/23/21 oxycodone-acetaminophen [Percocet] 1 tablet PO Q4H PRN 08/04/21 10/23/21 potassium chloride 20 meq PO BID PRN 08/04/21 10/23/21 promethazine 25 mg RECTAL Q6H PRN 08/04/21 10/23/21 ropinirole 2 mg PO HS 08/04/21 10/23/21 tizanidine 4 mg TID PRN 08/04/21 10/23/21 zolpidem 12.5 mg PO 08/04/21 10/23/21 Allergies Allergy/AdvReac Type Severity Reaction Status Date / Time amoxicillin Allergy Unknown Rash Verified 10/23/21 08:51 meperidine Allergy Unknown Verified 10/23/21 08:51 Penicillins Allergy Unknown unknown Verified 10/23/21 08:51 prochlorperazine Allergy Unknown unknown Verified 10/23/21 08:51 Sulfa (Sulfonamide Allergy Unknown unknown Verified 10/23/21 08:51 Antibiotics) Review of Systems Review of Systems: CONSTITUTIONAL: Denies fever, chills, or sweats. EYES: Denies visual changes, redness, or discharge. ENT: Denies rhinorrhea, congestion, sore throat, or otalgia. CARDIOVASCULAR: Denies chest pain, palpitations, or edema. RESPIRATORY: Denies cough or dyspnea. GASTROINTESTINAL: Denies abdominal pain, nausea, vomiting, or diarrhea. GENITOURINARY: Denies dysuria or hematuria. SKIN: Denies rash or itching. MUSCULOSKELETAL: Denies back pain, joint pain, or myalgia. NEUROLOGIC: Denies headache, numbness, or weakness. PSYCHIATRIC: Denies anxiety or depression. All systems reviewed & are unremarkable except as noted in HPI and below PMFSH Past Medical History Medical History (Updated 10/23/21 @ 13:35 by Ronald Rosas MD) Anxiety Chronic pain syndrome Hyperparathyroidism Hypertension Neuropathy Rheumatoid arteritis Surgical History Surgical History H/O parathyroidectomy H/O: hysterectomy S/P insertion of spinal cord stimulator Social History Social History Smoking status: Never smoker Alcohol intake: never Substance use: never Substance use type: does not use Spiritual care concerns: Yes Exam Narrative: GENERAL: Well-appearing, well-nourished, and in no acute distress. HEAD: Normocephalic, atraumatic. EYES: PERRLA and EOMI. ENT: Nares clear, no rhinorrhea or epistaxis. Mucous membranes moist. NECK: Supple. No masses. No JVD CHEST: Clear to auscultation. No respiratory distress. No wheezes rales or rhonchi HEART: Regular rate and rhythm. No murmur heard. Normal peripheral pulses. ABDOME
[2021-10-23 09:13] LABS: Glucose Point of Care 199 mg/dl (65-105)
[2021-10-23 09:24] LABS: Basophils Absolute Auto 0.1 K/mm3 (0.0-0.1); Basophils Percent Auto 0.6 % (0.2-1.2); Eosinophils Absolute Auto 0.3 K/mm3 (0-0.3); Eosinophils Percent Auto 2.8 % (0-4.4); Hematocrit 45.2 % (37.0-47.0); Hemoglobin 14.4 g/dL (12.0-15.0); Immature Granulocyte Absolute 0.03 K/mm3 (0.00-0.031); Immature Granulocyte Percent A 0.3 % (0-0.5); Lymphocytes Absolute Auto 3.06 K/mm3 (0.9-3.2); Lymphocytes Percent Auto 28.2 % (18.3-44.2); Mean Corpuscular HGB Conc 31.9 g/dl (32-36); Mean Corpuscular Hemoglobin 29.8 pg (26-34); Mean Corpuscular Volume 93.4 fl (80-100); Mean Platelet Volume 9.3 fl (7.4-10.4); Monocytes Absolute Auto 0.6 K/mm3 (0.1-0.6); Monocytes Percent Auto 5.8 % (2.6-8.5); Neutrophils Absolute Auto 6.8 K/mm3 (1.3-6.7); Neutrophils Percent Auto 62.3 % (45.5-73.1); Platelet Count Result 300 k/mm3 (150-375); Red Blood Count 4.84 M/mm3 (4.2-5.4); Red Cell Distribution Width 15.6 % (11.5-14.5); White Blood Count 10.8 K/mm3 (4.5-10.0)
[2021-10-23] MEDS: MORPHINE SULFATE (*CRX) 4 MG/ML INJ IV PUSH ×2 (09:25→12:29)
[2021-10-23 09:34] LABS: Alanine Aminotransferase 41 U/L (4-35); Albumin Level 4.6 g/dL (3.5-5.1); Alkaline Phosphatase 132 U/L (38-126); Anion Gap 11 mmol/L (8-16); Aspartate Amino Transferase 59 U/L (14-36); Bilirubin,Total 0.4 mg/dL (0.2-1.3); Blood Urea Nitrogen 14 mg/dL (7-17); Calcium 8.2 mg/dL (8.4-10.2); Carbon Dioxide 21 mmol/L (22-30); Chloride 103 mmol/L (98-107); Estimated CRCL calculation 92 ml/min; Estimated Glomerular Filt Rate > 60; Glucose 197 mg/dL (65-110); Sodium 135 mmol/L (137-145)
[2021-10-23] MEDS: SODIUM CHLORIDE 0.9% IV 2,000 ML 999 ML IV CONT (09:37)
--- NOTE | 2021-10-23 09:40 | PC.NURSE ---
Pt c/o dizziness and nausea, started fluids and laid pt down with a cool rag on her head. VORB for zofran
--- NOTE | 2021-10-23 09:45 | PC.NURSE ---
Pt states that she is itching from the morphine. Spoke with MD, orders for Atarax given.
[2021-10-23] MEDS: ONDANSETRON INJ 4 MG/2 ML VIAL IV PUSH (09:48)
[2021-10-23] MEDS: hydrOXYzine HCL 25 MG TABLET PO (09:55)
[2021-10-23] MEDS: SODIUM CHLORIDE 0.9% IV 1,000 ML 125 ML IV CONT (11:29)
--- NOTE | 2021-10-23 11:40 | PC.NURSE ---
Ferdinand at [place] [facility] called and given pt update. Per Ferdinand, continue supportive care and trend CMP.
--- NOTE | 2021-10-23 13:24 | WPDCNINT ---
Assessment and Plan Assessment and plan (1) Calcium channel robert overdose: Qualifiers: Encounter type: initial encounter Injury intent: accidental or unintentional Qualified Code(s): T46.1X1A - Poisoning by calcium-channel blockers, accidental (unintentional), initial encounter Code(s): T46.1X1A - Poisoning by calcium-channel blockers, accidental (unintentional), initial encounter Status: Acute Assessment and Plan: Accidental amlodipine overdose, she took amlodipine 10 mg x 8 pills is equal to 80 mg. As she realized she called poison controlled, was advised to go to the nearest ER. -patient received 2 L of IV fluid bolus in the ER -systolic blood pressures have been between 140s to 160s -continue to monitor blood pressures closely, along with heart rate (2) Hypertension: Code(s): I10 - Essential (primary) hypertension Status: Acute Assessment and Plan: Will hold all antihypertensive (3) Chronic pain syndrome: Code(s): G89.4 - Chronic pain syndrome Status: Acute Assessment and Plan: Will start home meds for chronic pain syndrome (4) Rheumatoid arthritis: Code(s): M06.9 - Rheumatoid arthritis, unspecified Status: Acute Assessment and Plan: Patient is on methotrexate and folic acid -last dose of methotrexate was on 10/21/2021 (5) DVT prophylaxis: Code(s): Z29.9 - Encounter for prophylactic measures, unspecified Status: Acute Assessment and Plan: SCDs Additional Plan Nutrition: Regular diet Code status: Full code Critical care time spent: 36 minutes This dictation may have been done utilizing a voice recognition system. Attempts have been made to correct errors. However, there may be uncorrected grammatical, spelling, and recognition errors present. Due to a high probability of clinically significant, life threatening deterioration, the patient required my highest level of preparedness to intervene emergently and I personally spent this critical care time directly and personally managing the patient. This critical care time included obtaining a history; examining the patient; pulse oximetry; ordering and review of studies; arranging urgent treatment with development of a management plan; evaluation of patient's response to treatment; frequent reassessment; and discussions with other providers. It was exclusive of separately billable procedures and treating other patients and teaching time. Please see Assessment and Plan section and the rest of the note for further information on patient assessment and treatment Safety Lamp Keeper Consult Note Consult date: 10/23/21 Time Seen: 13:04 Reason for consult: Accidental amlodipine overdose HPI: Rosalinda Manrique is a 51 year old female past medical history of chronic pain syndrome, C5-C6 fusion, patient has a spinal cord stimulator, hyperparathyroidism status post parathyroidectomy, essential hypertension, neuropathy, anxiety presented the ED on 10/23/2021 with complains accidental amlodipine overdose. Patient states that she normally takes 8 pills of lamotrigine and by mistake she took 8 pills of amlodipine. As soon as she realized she called poison Control, was advised to come to the ER. Patient received 2 L IV fluid bolus in the ER, systolic blood pressures have been in the 140s to 150s. Patient denies any chest pain, shortness of bed, abdominal pain, nausea, vomiting, diarrhea, dizziness, lightheadedness. Patient denies any alcohol, tobacco or illicit drug use. She is on disability. WBC count of 10.8, potassium was 3.0, creatinine 0.8, blood sugars 197, calcium 8.2, slightly elevated LFTs. Patient does not have any symptoms of COVID, she has not been vaccinated against COVID-19. Patient was transferred to the ICU for further management and monitoring of her blood pressures Review of Systems Review of Systems: All systems reviewed & are unremarkable except as noted in HPI and below
--- NOTE | 2021-10-23 14:05 | ADMGEN ---
This patient, Rosalinda Manrique, was admitted to Intensive Care Unit-4. Patient/family oriented to hospital policies and general routines including ID bracelet, bed and alarms, visiting hours, pain management, procedures, bathroom and other care routines, personal items, smoking policy, room service/diet, and visiting hours. Information on how to activate the Rapid Response Team has been discussed. Patient/Family are encouraged to report perceived risks to care and to ask questions if they do not understand what they are told or what they should do.
--- NOTE | 2021-10-23 14:21 | ADMGEN ---
This patient, Rosalinda Manrique, was admitted to Intensive Care Unit-4 at 1308. Patient/family oriented to hospital policies and general routines including ID bracelet, bed and alarms, visiting hours, pain management, procedures, bathroom and other care routines, personal items, smoking policy, room service/diet, and visiting hours. Information on how to activate the Rapid Response Team has been discussed. Patient/Family are encouraged to report perceived risks to care and to ask questions if they do not understand what they are told or what they should do.
--- NOTE | 2021-10-23 15:29 | PM.IMHP ---
H&P: HPI History of Present Illness Date/Time: Patient requires inpatient monitoring with expected length of stay to exceed 2 midnights for management of care. 10/23/21 15:29 Chief Complaint: Accidental overdose Narrative: Ms. Manrique is a 51-year-old female who presented emergency room after taking 8 of her 10 mg amlodipine. Patient states she thought she was taking her chewable lamotrigine, which she normally takes 8 of that once. Patient states she typically does not to her lamotrigine even though she is supposed to; she typically swallows the pills whole. Patient states that she typically has after taste when taking her lamotrigine, and when she takes the amlodipine she noticed there is no after taste and she lives at the bottle and realized what she had done. Patient states she immediately called poison Control and went to the emergency room. Patient states that when she arrived to the emergency room she was feeling fine and had no lightheadedness, dizziness, or near syncopal episodes. Patient states she was just very worried that her blood pressure may drop and wanted to be monitored. Patient states that while she was in the emergency room her blood pressure did decrease and she became very dizzy. Patient was then placed on IV fluids at bolus rate and there is significant improvement in her blood pressure. Patient did receive a dose of morphine while in the emergency room. Patient does have chronic pain to her back. Patient states she does have a back stimulator and takes multiple pain medications. Patient states she also does have a history of rheumatoid arthritis and fibromyalgia. Patient denies any chest pain, shortness a breath, palpitations, orthopnea, or PND. Patient states that this time she is feeling well. Patient has a known history of hypertension, chronic back pain, rheumatoid arthritis, fibromyalgia, renal calculi, and hyperparathyroidism status post parathyroidectomy of her 3 of her parathyroid glands Review of Systems Review of Systems: A 12 point review of systems was completed patient all pertinent positive and negative per HPI the remainder are unremarkable. [facility] Past Medical History Medical History Anxiety Chronic pain syndrome Hyperparathyroidism Hypertension Neuropathy Rheumatoid arteritis Surgical History Surgical History H/O parathyroidectomy H/O: hysterectomy S/P insertion of spinal cord stimulator Social History Social History Smoking status: Never smoker Alcohol intake: never Substance use: never Substance use type: does not use Spiritual care concerns: Yes Meds Home Medications and Allergies Home Medications Medication Instructions Recorded Confirmed Type Adults Multivitamin 1 tablet PO DAILY 08/04/21 10/23/21 History amitriptyline 10 mg HS 08/04/21 10/23/21 History amlodipine 10 mg PO DAILY 08/04/21 10/23/21 History cyanocobalamin (vitamin B-12) 1,000 mcg PO DAILY 08/04/21 10/23/21 History dextroamphetamine-amphetamine 20 mg PO DAILY 08/04/21 10/23/21 History [Adderall] duloxetine 30 mg PO DAILY 08/04/21 10/23/21 History ergocalciferol (vitamin D2) 50,000 unit WEEKLY 08/04/21 10/23/21 History estradiol 1 mg PO DAILY 08/04/21 10/23/21 History famotidine [Pepcid] 40 mg PO BID 08/04/21 10/23/21 History gabapentin 600 mg PO BID 08/04/21 10/23/21 History hydroxychloroquine 200 mg PO BID 08/04/21 10/23/21 History hydroxyzine HCl 50 mg PO TID PRN 08/04/21 10/23/21 History lamotrigine 200 mg PO DAILY 08/04/21 10/23/21 History levomefolate calcium 15 mg PO DAILY 08/04/21 10/23/21 History methotrexate sodium 20 mg PO WEEKLY 08/04/21 10/23/21 History modafinil 200 mg PO QAM 08/04/21 10/23/21 History oxycodone-acetaminophen [Percocet] 1 tablet PO Q4H PRN 08/04/21 10/23/21 History potassium chloride 20 meq PO BID PRN
[2021-10-23] MEDS: oxyCODONE HCL (*CRX) 5 MG TAB IR PO ×2 (16:10→20:17)
[2021-10-23] MEDS: oxyCODONE/ACETAMINOPHEN (*CRX) 5-325 MG TABLET 1 TABLET PO ×2 (16:11→20:17)
--- NOTE | 2021-10-23 16:19 | PC.NURSE ---
Spoke with Ferdinand byrd at the poison control center @ 1451, stated peak amlodipine times are 6-12 hours and to call with case #[id number]
[2021-10-23] MEDS: GABAPENTIN 300 MG CAPSULE 600 MG PO (17:37)
[2021-10-23] MEDS: HYDROXYCHLOROQUINE SULFATE 200 MG TABLET PO (17:37)
[2021-10-23] MEDS: hydrOXYzine HCL 25 MG TABLET 50 MG PO (20:17)
[2021-10-23] MEDS: ZOLPIDEM TARTRATE (*CRX) 5 MG TABLET 10 MG PO (20:18)
[2021-10-23] MEDS: FAMOTIDINE 20 MG TABLET 40 MG PO (20:19)
[2021-10-23] MEDS: rOPINIRole HCL 1 MG TABLET 2 MG PO (20:19)
[2021-10-23] MEDS: AMITRIPTYLINE HCL 10 MG TABLET 30 MG PO (20:23)
[2021-10-24] VITALS (10 sets, daily range): BP systolic 118–170; BP diastolic 72–96; PULSE 85–105; RESP 15–20; TEMP 36.7–36.9; O2SAT 93–98
[2021-10-24] MEDS: oxyCODONE/ACETAMINOPHEN (*CRX) 5-325 MG TABLET 1 TABLET PO ×5 (00:22→16:15)
[2021-10-24] MEDS: oxyCODONE HCL (*CRX) 5 MG TAB IR PO ×5 (00:23→16:15)
[2021-10-24 04:29] LABS: Basophils Absolute Auto 0.1 K/mm3 (0.0-0.1); Basophils Percent Auto 0.6 % (0.2-1.2); Eosinophils Absolute Auto 0.2 K/mm3 (0-0.3); Eosinophils Percent Auto 1.9 % (0-4.4); Hematocrit 39.9 % (37.0-47.0); Hemoglobin 12.7 g/dL (12.0-15.0); Immature Granulocyte Absolute 0.03 K/mm3 (0.00-0.031); Immature Granulocyte Percent A 0.4 % (0-0.5); Lymphocytes Absolute Auto 2.99 K/mm3 (0.9-3.2); Lymphocytes Percent Auto 35.5 % (18.3-44.2); Mean Corpuscular HGB Conc 31.8 g/dl (32-36); Mean Corpuscular Hemoglobin 30.2 pg (26-34); Mean Platelet Volume 9.3 fl (7.4-10.4); Monocytes Absolute Auto 0.5 K/mm3 (0.1-0.6); Monocytes Percent Auto 5.5 % (2.6-8.5); Neutrophils Absolute Auto 4.7 K/mm3 (1.3-6.7); Neutrophils Percent Auto 56.1 % (45.5-73.1); Platelet Count Result 251 k/mm3 (150-375); Red Cell Distribution Width 15.5 % (11.5-14.5); White Blood Count 8.4 K/mm3 (4.5-10.0)
[2021-10-24 04:39] LABS: Alanine Aminotransferase 33 U/L (4-35); Albumin Level 3.9 g/dL (3.5-5.1); Alkaline Phosphatase 147 U/L (38-126); Anion Gap 7 mmol/L (8-16); Aspartate Amino Transferase 30 U/L (14-36); Bilirubin,Total 0.3 mg/dL (0.2-1.3); Blood Urea Nitrogen 17 mg/dL (7-17); Calcium 7.9 mg/dL (8.4-10.2); Carbon Dioxide 23 mmol/L (22-30); Chloride 105 mmol/L (98-107); Estimated CRCL calculation 105 ml/min; Estimated Glomerular Filt Rate > 60; Glucose 122 mg/dL (65-110); Potassium 3.6 mmol/L (3.4-5.0); Sodium 135 mmol/L (137-145)
[2021-10-24] MEDS: hydrOXYzine HCL 25 MG TABLET 50 MG PO (05:54)
[2021-10-24] MEDS: TIZANIDINE HCL 4 MG TABLET PO (05:54)
[2021-10-24] MEDS: DULoxetine HCL 30 MG CAPSULE.DR PO (09:03)
[2021-10-24] MEDS: CYANOCOBALAMIN 1,000 MCG TABLET 1000 MCG PO (09:03)
[2021-10-24] MEDS: lamoTRIgine 100 MG TABLET 200 MG PO (09:04)
[2021-10-24] MEDS: FAMOTIDINE 20 MG TABLET 40 MG PO (09:04)
[2021-10-24] MEDS: estradioL 1 MG TABLET PO (09:04)
[2021-10-24] MEDS: ENOXAPARIN 40 MG/0.4 ML SYRINGE SUB-Q (09:04)
[2021-10-24] MEDS: GABAPENTIN 300 MG CAPSULE 600 MG PO ×2 (09:04→16:55)
[2021-10-24] MEDS: modafiniL (*CRX) 200 MG TABLET PO (09:05)
[2021-10-24] MEDS: MULTIVITAMINS THERAPEUTIC TAB (*BKC) 1 TABLET PO (09:05)
--- NOTE | 2021-10-24 09:32 | WPDINTPN ---
Progress Note: A&P Assessment and Plan (1) Calcium channel robert overdose: Qualifiers: Encounter type: initial encounter Injury intent: accidental or unintentional Qualified Code(s): T46.1X1A - Poisoning by calcium-channel blockers, accidental (unintentional), initial encounter Code(s): T46.1X1A - Poisoning by calcium-channel blockers, accidental (unintentional), initial encounter Status: Acute Assessment and Plan: Accidental amlodipine overdose, she took amlodipine 10 mg x 8 pills is equal to 80 mg. As she realized she called poison controlled, was advised to go to the nearest ER. -patient received 2 L of IV fluid bolus in the ER -systolic blood pressures have been between 130s to 170s all day yesterday and through the night in the ICU -continue to monitor blood pressures closely, along with heart rate (2) Hypertension: Code(s): I10 - Essential (primary) hypertension Status: Acute Assessment and Plan: Continue to hold antihypertensives (3) Chronic pain syndrome: Code(s): G89.4 - Chronic pain syndrome Status: Acute Assessment and Plan: Continue home meds for chronic pain syndrome (4) Rheumatoid arthritis: Code(s): M06.9 - Rheumatoid arthritis, unspecified Status: Acute Assessment and Plan: Patient is on methotrexate and folic acid -last dose of methotrexate was on 10/21/2021 (5) DVT prophylaxis: Code(s): Z29.9 - Encounter for prophylactic measures, unspecified Status: Acute Assessment and Plan: SCDs Additional Plan Nutrition: Regular diet Code status: Full code Critical care time spent: 31 minutes This dictation may have been done utilizing a voice recognition system. Attempts have been made to correct errors. However, there may be uncorrected grammatical, spelling, and recognition errors present. Due to a high probability of clinically significant, life threatening deterioration, the patient required my highest level of preparedness to intervene emergently and I personally spent this critical care time directly and personally managing the patient. This critical care time included obtaining a history; examining the patient; pulse oximetry; ordering and review of studies; arranging urgent treatment with development of a management plan; evaluation of patient's response to treatment; frequent reassessment; and discussions with other providers. It was exclusive of separately billable procedures and treating other patients and teaching time. Please see Assessment and Plan section and the rest of the note for further information on patient assessment and treatment Subjective Date/time seen: 10/24/21 09:32 Interval history: Reason for consult: Accidental amlodipine overdose 10/24/2021: Patient seen and examined the ICU, blood pressures have remained stable through the night slightly higher. Patient has been afebrile, adequate urine output, tolerating regular diet. Patient denies any shortness of breath. Her chronic pain is under control. No complaints at this time Review of Systems Review of Systems: All systems reviewed & are unremarkable except as noted in HPI and below Exam Narrative: General: Pleasant female in no acute distress HEENT: Pupils equal reactive, moist oral mucosa Neck: Supple, surgical scar noted Respiratory: Clear to auscultation bilaterally Cardiac: S1-S2 normal, regular rate and rhythm Abdomen: Soft, non tender, non distended, normoactive bowel sounds, protuberant Extremities: Mild pitting edema bilateral lower extremities, bilateral palpable pedal pulses Neuro: Patient is awake, alert, oriented x3, nonfocal, follows simple commands in all extremities and answers to questions appropriately Skin: No lesions noted, skin is dry and warm Psych: Normal mentation and normal affect Objective Data Vital Signs Vital Signs: Vital Signs - 24 hr 10/23/21 09:38 10/23/21 09:46 10/23/21
[2021-10-24] MEDS: HYDROXYCHLOROQUINE SULFATE 200 MG TABLET PO ×2 (10:24→16:55)
--- NOTE | 2021-10-24 15:30 | PM.DS ---
DS: Admitting Diagnosis Discharge Date 10/24/21 Admitting Diagnosis (1) Calcium channel robert overdose: Qualifiers: Encounter type: initial encounter Injury intent: accidental or unintentional Qualified Code(s): T46.1X1A - Poisoning by calcium-channel blockers, accidental (unintentional), initial encounter Code(s): T46.1X1A - Poisoning by calcium-channel blockers, accidental (unintentional), initial encounter Status: Acute Assessment and Plan: (2) Acute hypokalemia: Code(s): E87.6 - Hypokalemia Status: Acute Assessment and Plan: (3) Chronic pain syndrome: Code(s): G89.4 - Chronic pain syndrome Status: Acute Assessment and Plan: DS: Discharge Diagnosis Discharge Diagnosis (1) Rheumatoid arthritis: Code(s): M06.9 - Rheumatoid arthritis, unspecified Status: Acute (2) Chronic pain syndrome: Code(s): G89.4 - Chronic pain syndrome Status: Acute (3) Calcium channel robert overdose: Qualifiers: Encounter type: initial encounter Injury intent: accidental or unintentional Qualified Code(s): T46.1X1A - Poisoning by calcium-channel blockers, accidental (unintentional), initial encounter Code(s): T46.1X1A - Poisoning by calcium-channel blockers, accidental (unintentional), initial encounter Status: Acute (4) Hypertension: Code(s): I10 - Essential (primary) hypertension Status: Acute (5) Acute hypokalemia: Code(s): E87.6 - Hypokalemia Status: Acute DS: Summary Hospital Course Reason for hospitalization: CCB accidental over dose Hospital Course: 10/23/21 Patient did not intentionally overdosed on her Norvasc. At this point time will continue with IV fluids. Patient's blood pressure is stable and actually elevated at this time. Will decrease IV fluids to 75 cc an hour and if blood pressure remains elevated will discontinue fluids altogether. Patient states she feels very well. Will monitor patient overnight was likely be able to discharge in the morning. Will give patient oral supplementation of potassium and recheck levels in a.m.. Will resume patient's chronic pain medication and monitor blood pressure since she did take a large dose of amlodipine. Patient is on a significant amount of medications secondary to her return with radius, chronic back pain, and fibromyalgia. 10/24/21 pt monitored overnight and BP stable cleared for dc by travel registered nurse nicu pt discharged home in stable condition w indications to follow up w PCP and to be cautious when taking medications Status at Discharge Overall status at discharge: patient is back to baseline Time Spent with Patient Time attestation: Total time spent providing and/or coordinating discharge services: Time spent: Less than 30 minutes Exam Narrative: GEN: well-nourished in no acute distress. alert and oriented x3 HEENT: Moist mucous membranes. No scleral icterus. Neck: No carotid bruits noted no JVD noted surgical scar over middle anterior neck at level of neck fold Lungs: Lung sounds are clear to auscultation bilaterally. No accessory muscle use. No rhonchi, rales, or wheezes noted. Cardiovascular: S1-S2 tachycardia Extremities: No edema. Nontender. Skin: No rashes or lesions. Warm and dry. Skin is intact. Neurological: No focal neurological deficits. Cranial nerves II-XII grossly intact. Psychiatric: Cooperative, appropriate mood, and affect DS: Data Data Completed and Pending Labs on day of discharge: Labs from last 24 hours 10/24/21 10/24/21 04:15 04:15 WBC 8.4 RBC 4.20 Hgb 12.7 Hct 39.9 MCV 95.0 MCH 30.2 MCHC 31.8 L RDW 15.5 H Plt Count 251 MPV 9.3 Immature Gran % (Auto) 0.4 Neut % (Auto) 56.1 Lymph % (Auto) 35.5 Buchanan % (Auto) 5.5 Eos % (Auto) 1.9 Baso % (Auto) 0.6 Lymph # (Auto) 2.99 Buchanan # (Auto) 0.5 Eos # (Auto) 0.2 Baso # (Auto) 0.1 Abs Immat Gran (a
== END 2021-10-24 17:05 | disposition home or self-care (01) | DRG 918 ==
LOC: ANHED 11:04 → ANHICU 13:03
PROVIDERS: Nurse Practitioner Adult Health; Admitting Provider Internal Medicine; Emergency Provider Emergency Medicine; Visit Provider Hospitalist
DX: T46.1X1A Poisoning by calcium-channel blockers, accidental (unintentional), initial encounter (principal); R42 Dizziness and giddiness; E87.6 Hypokalemia; Y92.9 Unspecified place or not applicable; Z88.0 Allergy status to penicillin; Z88.2 Allergy status to sulfonamides; F41.9 Anxiety disorder, unspecified; G89.4 Chronic pain syndrome; E21.3 Hyperparathyroidism, unspecified; G62.9 Polyneuropathy, unspecified; M06.9 Rheumatoid arthritis, unspecified; I10 Essential (primary) hypertension; Z98.1 Arthrodesis status; Z96.82 Presence of neurostimulator; M79.7 Fibromyalgia
CPT/HCPCS: 36415; 80053; 82948; 83735; 85025; 93005; 96361; 96374; 96375; 96376; 99285; A9270; C1751; G0378; J1650; J2270; J2405; J7030

== ENCOUNTER 2021-11-16 16:29 | Inpatient (IN) | payer MEDICARE, MEDICAID, SELFPAY ==
[2021-11-16] VITALS (9 sets, daily range): BP systolic 162–197; BP diastolic 69–109; PULSE 113–117; RESP 16–18; TEMP 36.6; O2SAT 95–100
--- NOTE | ~2021-11-16 | NM_ITS ---
EXAMINATION: NM hepatobiliary w pharm DATE: 11/21/2021 14:00 INDICATION: Right upper quadrant abdominal pain. Elevated liver enzymes. COMPARISON: None. TECHNIQUE: 4.3 mCi Tc-99m mebrofenin (Choletec) was administered intravenously. Scintigraphic images of the abdomen were obtained for one hour. 2.4 mcg sincalide (Kinevac) was administered by slow intr avenous infusion, and imaging was continued for 30 minutes. Gallbladder ejection fraction was calcula nazario by the technologist. FINDINGS: There is normal clearance of radiotracer from the blood pool. There is homogeneous tracer uptake by t he liver. Activity progresses to the gallbladder and bowel. The gallbladder ejection fraction (GBEF) is 90% (normal 10-90%, but most patient with gallbladder dysfunction have GBEF < 35% which does over lap with the normal range). IMPRESSION: 1. Normal hepatobiliary scan. Reviewed, dictated and finalized at location A.
--- NOTE | ~2021-11-16 | CT_ITS ---
EXAMINATION: CT abdomen pelvis wo con DATE: 11/16/2021 19:53 INDICATION: nausea , elevated liver enzymes TECHNIQUE: Computed tomography (CT) of the abdomen and pelvis was performed without intravenous contr ast. Automated exposure control and iterative reconstruction technique were employed. The dose-length product was 1619.32 mGy-cm. COMPARISON: None FINDINGS: Lower thorax: Unremarkable Liver: Steatosis Biliary/Gallbladder: Gallbladder is enlarged. No wall thickening, stone, sludge, or pericholecystic f luid. No bile duct dilation. Spleen: Normal. Pancreas: No mass or duct dilation. Adrenals:No mass. Kidneys: Nonobstructive bilateral calculi. GI tract: No small or large bowel dilation. Normal appendix. Prior gastric bypass. Mesentery/Peritoneum: No ascites, mass, or free air. Retroperitoneum: No mass.. Pelvis: Pelvic organs are within normal limits. Soft Tissues: Soft tissues and body wall unremarkable. Bones: No acute osseous finding. IMPRESSION: Steatosis. Gallbladder hydrops of uncertain etiology. There is no CT evidence of cholelithiasis, acut e cholecystitis, or biliary duct dilation. Reviewed, dictated and finalized at location K. IMPRESSION: Steatosis. Gallbladder hydrops of uncertain etiology. There is no CT evidence o f cholelithiasis, acute cholecystitis, or biliary duct dilation.
--- NOTE | ~2021-11-16 | US_ITS ---
EXAMINATION: US abdomen limited DATE: 11/17/2021 09:16 INDICATION: Nausea and vomiting TECHNIQUE: Multiple grayscale and Doppler ultrasound images of the abdomen were obtained. COMPARISON: 08/04/[address] from yesterday FINDINGS: Bowel gas obscures visualization of the pancreas. The liver demonstrates increased echogeni city, heterogenous echotexture, and decreased through transmission. No surface nodularity. Normal hep atopetal flow in the main portal vein. The gallbladder is distended. No gallstones or pericholecystic fluid are identified. The mildly dilated common bile duct measures 7 mm. There was no sonographic Mu rphy sign. IMPRESSION: 1. Persistent mild distention of the gallbladder and common bile duct of unclear etiology. 2. Diffuse hepatic steatosis. Reviewed, dictated and finalized at location B. IMPRESSION: 1. Persistent mild distention of the gallbladder and common bile duct of unclea r etiology. 2. Diffuse hepatic steatosis.
--- NOTE | 2021-11-16 16:46 | PC.NURSE ---
attempted blood draw in triage. unsuccessful.
--- NOTE | 2021-11-16 18:36 | PC.NURSE ---
when pt was asked for urine specimen, pt states I dropped mine in the waiting room earlier. I don't have to go right now .
[2021-11-16] MEDS: SODIUM CHLORIDE 0.9% IV 1,000 ML 150 ML IV CONT (18:41)
[2021-11-16] MEDS: ONDANSETRON INJ 4 MG/2 ML VIAL IV PUSH ×2 (18:41→23:29)
[2021-11-16 18:44] LABS: Basophils Absolute Auto 0.1 K/mm3 (0.0-0.1); Basophils Percent Auto 0.7 % (0.2-1.2); Eosinophils Absolute Auto 0.1 K/mm3 (0-0.3); Hematocrit 45.4 % (37.0-47.0); Hemoglobin 15.7 g/dL (12.0-15.0); Immature Granulocyte Absolute 0.13 K/mm3 (0.00-0.031); Lymphocytes Absolute Auto 3.24 K/mm3 (0.9-3.2); Mean Corpuscular HGB Conc 34.6 g/dl (32-36); Mean Corpuscular Hemoglobin 29.2 pg (26-34); Mean Corpuscular Volume 84.4 fl (80-100); Mean Platelet Volume 9.5 fl (7.4-10.4); Monocytes Absolute Auto 0.9 K/mm3 (0.1-0.6); Monocytes Percent Auto 6.9 % (2.6-8.5); Neutrophils Percent Auto 64.4 % (45.5-73.1); Platelet Count Result 297 k/mm3 (150-375); Red Blood Count 5.38 M/mm3 (4.2-5.4); Red Cell Distribution Width 14.4 % (11.5-14.5); White Blood Count 12.5 K/mm3 (4.5-10.0)
[2021-11-16 19:02] LABS: Albumin Level 3.8 g/dL (3.5-5.1); Alkaline Phosphatase 304 U/L (38-126); Anion Gap 8 mmol/L (8-16); Blood Urea Nitrogen 21 mg/dL (7-17); Calcium 8.4 mg/dL (8.4-10.2); Carbon Dioxide 26 mmol/L (22-30); Chloride 96 mmol/L (98-107); Estimated CRCL calculation 83 ml/min; Estimated Glomerular Filt Rate > 60; Glucose 158 mg/dL (65-110); Lipase 321 U/L (23-300); Potassium 3.3 mmol/L (3.4-5.0); Sodium 130 mmol/L (137-145)
[2021-11-16 19:26] LABS: Alanine Aminotransferase 1263 U/L (4-35); Aspartate Amino Transferase 903 U/L (14-36)
[2021-11-16] MEDS: fentaNYL CITRATE INJ (*CRX) 100 MCG/2 ML VIAL 50 MCG IV PUSH (19:34)
[2021-11-16] MEDS: diphenhydrAMINE HCl INJ 50 MG/ML VIAL IV PUSH (20:05)
[2021-11-16] MEDS: HYDROmorphone HCL INJ (*CRX) 1 MG/ML SYR IM (21:07)
[2021-11-16 21:55] LABS: SARS-CoV-2 RNA PCR Negative
--- NOTE | 2021-11-16 21:57 | ED.GENADULT ---
HPI - General Adult General Chief complaint: Nausea/Vomiting/Diarrhea Stated complaint: n/v Time Seen by Provider: 11/16/21 18:26 Related Data Home Medications Medication Instructions Recorded Confirmed amitriptyline 10 mg HS 08/04/21 10/23/21 amlodipine 10 mg PO DAILY #0 08/04/21 10/23/21 cyanocobalamin (vitamin B-12) 1,000 mcg PO DAILY #0 08/04/21 10/23/21 dextroamphetamine-amphetamine 20 mg PO DAILY 08/04/21 10/23/21 [Adderall] duloxetine 30 mg PO DAILY 08/04/21 10/23/21 ergocalciferol (vitamin D2) 50,000 unit WEEKLY 08/04/21 10/23/21 estradiol 1 mg PO DAILY 08/04/21 10/23/21 famotidine [Pepcid] 40 mg PO BID 08/04/21 10/23/21 gabapentin 600 mg PO BID 08/04/21 10/23/21 hydroxychloroquine 200 mg PO BID 08/04/21 10/23/21 hydroxyzine HCl 50 mg PO TID PRN 08/04/21 10/23/21 lamotrigine 200 mg PO DAILY 08/04/21 10/23/21 levomefolate calcium 15 mg PO DAILY 08/04/21 10/23/21 methotrexate sodium [Methotrexate 20 mg PO WEEKLY #0 08/04/21 10/25/21 (Anti-Rheumatic)] modafinil 200 mg PO QAM 08/04/21 10/23/21 multivitamin [A To Z Multivitamin] 1 tablet PO DAILY #0 08/04/21 10/23/21 oxycodone-acetaminophen [Percocet] 1 tablet PO Q4H PRN 08/04/21 10/23/21 potassium chloride 20 meq PO BID PRN #0 08/04/21 10/23/21 promethazine 25 mg RECTAL Q6H PRN #0 08/04/21 10/23/21 ropinirole 2 mg PO HS 08/04/21 10/23/21 tizanidine 4 mg TID PRN 08/04/21 10/23/21 zolpidem 12.5 mg PO HS 08/04/21 10/23/21 Allergies Allergy/AdvReac Type Severity Reaction Status Date / Time amoxicillin Allergy Unknown Rash Verified 11/16/21 18:27 meperidine Allergy Unknown Verified 11/16/21 18:27 Penicillins Allergy Unknown unknown Verified 11/16/21 18:27 prochlorperazine Allergy Unknown unknown Verified 11/16/21 18:27 Sulfa (Sulfonamide Allergy Unknown unknown Verified 11/16/21 18:27 Antibiotics) Review of Systems Review of Systems: All systems reviewed & are unremarkable except as noted in HPI and below Constitutional: Constitutional: Reports no additional constitutional complaints Eyes: Eyes: Reports no additional eye complaints ENT: Reports system reviewed and no additional complaints, except as documented Cardiovascular: Cardiovascular: Reports no additional cardiovascular complaints Respiratory: Respiratory: Reports no additional respiratory complaints Gastrointestinal: Gastrointestinal: Reports as per HPI Genitourinary: Genitourinary: Reports no additional female genitourinary complaints Musculoskeletal: Musculoskeletal: Reports as per HPI Integumentary/Breasts: Skin/Breast: Reports system reviewed and no additional complaints, except as docu Neurologic: Reports system reviewed and no additional complaints, except as documented Psychiatric: Psychiatric: Reports no additional psychiatric complaints [facility] Past Medical History Medical History Anxiety Chronic pain syndrome Hyperparathyroidism Hypertension Neuropathy Rheumatoid arteritis Surgical History Surgical History H/O parathyroidectomy H/O: hysterectomy S/P insertion of spinal cord stimulator Social History Social History Smoking status: Never smoker Alcohol intake: never Substance use: never Substance use type: does not use Spiritual care concerns: Yes Exam Narrative: GENERAL: ill -appearing, obese , and in no acute distress. HEAD: Normocephalic, atraumatic. EYES: PERRLA and EOMI.. NECK: Supple. CHEST: Clear to auscultation. No respiratory distress. HEART: Regular rate and rhythm. No murmur heard. Normal peripheral pulses. ABDOMEN: Soft, nontender, nondistended, normal active bowel sounds. EXTREMITIES: Normal range of motion. No edema. SKIN: Warm, dry, no rash. NEURO: No focal deficits. Alert and oriented x3. PSYCH: Normal mood and affect. Course Course Emergency Course: Patient has diff
[2021-11-16 22:46] LABS: Add Urine Microscopic? NO; Appearance Urine Clear (Clear); Bilirubin Urine Negative (Negative); Blood Urine Negative (Negative); Color Urine Yellow (Yellow); Glucose Urine UA Negative (Negative); Ketones Urine Negative (Negative); Leukocyte Esterase Ur Negative LEU/UL (Negative); Nitrate Urine Negative (Negative); Protein Urine Negative (Negative); Specific Grav Ur 1.025 (1.001-1.035); Urobilinogen Urine 0.2 mg/dL (<2.0); pH Urine 5.5 (5.0-9.0)
[2021-11-16 22:52] LABS: Bacteria Urine Trace /hpf; Mucus Urine Moderate /lpf; RBC Urine 0-2 /hpf (0-2); Squamous Epithelial Cell Urine Few /hpf (Few)
[2021-11-16] MEDS: ERTAPENEM 1 GM/NS 50 ML 1 GM/50 ML BAG IVPB (23:28)
[2021-11-16] MEDS: HYDROmorphone HCL INJ (*CRX) 1 MG/ML SYR 0.5 MG IV PUSH (23:30)
[2021-11-17] VITALS (8 sets, daily range): BP systolic 131–217; BP diastolic 61–94; PULSE 78–105; RESP 18–20; TEMP 36.6–37.1; O2SAT 93–98; BMI 44.1
[2021-11-17] MEDS: SODIUM CHLORIDE 0.9% IV 1,000 ML 125 ML IV CONT (01:39)
--- NOTE | 2021-11-17 03:09 | ADMGEN ---
0045 This patient, Rosalinda Manrique, was admitted to 3 [facility] Surg Room 331-01. Patient/family oriented to hospital policies and general routines including ID bracelet, bed and alarms, visiting hours, pain management, procedures, bathroom and other care routines, personal items, smoking policy, room service/diet, and visiting hours. Information on how to activate the Rapid Response Team has been discussed. Patient/Family are encouraged to report perceived risks to care and to ask questions if they do not understand what they are told or what they should do.
[2021-11-17] MEDS: diphenhydrAMINE HCl INJ 50 MG/ML VIAL 25 MG IV PUSH (03:15)
[2021-11-17] MEDS: HYDROmorphone HCL INJ (*CRX) 1 MG/ML SYR 0.5 MG IV PUSH ×5 (04:37→22:00)
[2021-11-17 06:34] LABS: Basophils Absolute Auto 0.1 K/mm3 (0.0-0.1); Basophils Percent Auto 0.6 % (0.2-1.2); Eosinophils Absolute Auto 0.2 K/mm3 (0-0.3); Eosinophils Percent Auto 2.1 % (0-4.4); Hemoglobin 13.8 g/dL (12.0-15.0); Immature Granulocyte Absolute 0.09 K/mm3 (0.00-0.031); Lymphocytes Percent Auto 31.1 % (18.3-44.2); Mean Corpuscular HGB Conc 32.9 g/dl (32-36); Mean Corpuscular Hemoglobin 29.2 pg (26-34); Mean Corpuscular Volume 88.8 fl (80-100); Mean Platelet Volume 9.7 fl (7.4-10.4); Monocytes Absolute Auto 0.7 K/mm3 (0.1-0.6); Monocytes Percent Auto 7.9 % (2.6-8.5); Neutrophils Absolute Auto 5.3 K/mm3 (1.3-6.7); Neutrophils Percent Auto 57.3 % (45.5-73.1); Platelet Count Result 222 k/mm3 (150-375); Red Blood Count 4.73 M/mm3 (4.2-5.4); Red Cell Distribution Width 14.6 % (11.5-14.5); White Blood Count 9.3 K/mm3 (4.5-10.0)
[2021-11-17 06:52] LABS: Albumin Level 3.4 g/dL (3.5-5.1); Alkaline Phosphatase 240 U/L (38-126); Anion Gap 8 mmol/L (8-16); Aspartate Amino Transferase 580 U/L (14-36); Bilirubin,Total 1.4 mg/dL (0.2-1.3); Blood Urea Nitrogen 20 mg/dL (7-17); Calcium 7.6 mg/dL (8.4-10.2); Carbon Dioxide 23 mmol/L (22-30); Chloride 102 mmol/L (98-107); Estimated CRCL calculation 108 ml/min; Estimated Glomerular Filt Rate > 60; Glucose 114 mg/dL (65-110); Potassium 3.3 mmol/L (3.4-5.0); Sodium 133 mmol/L (137-145)
[2021-11-17 07:22] LABS: Alanine Aminotransferase 921 U/L (4-35)
--- NOTE | 2021-11-17 09:19 | PM.IMHP ---
H&P: HPI History of Present Illness Date/Time: 11/17/21 09:19 Chief Complaint: 51 years old female with past medical history of hypertension rheumatoid arthritis amlodipine overdose presented to the hospital with nausea and vomiting started 5 days ago worsening gradually and able to tolerate food associated with diarrhea multiple times a day worsening yesterday patient has 5 episodes of diarrhea yesterday, patient also complain of abdominal pain specially lower quadrant but currently generalized patient denies fever or chills at the ER CT scan was done was negative for acute finding other than hydrops of gallbladder patient had mild leukocytosis hyponatremia elevated LFT admitted for further evaluation and treatment Review of Systems Review of Systems: Twelve system review was negative except noted in HPI PMFSH Past Medical History Medical History (Updated 11/17/21 @ 09:25 by Bowen Bronson MD) Anxiety Chronic pain syndrome Hyperparathyroidism Hypertension Neuropathy Rheumatoid arteritis Surgical History Surgical History H/O parathyroidectomy H/O: hysterectomy S/P insertion of spinal cord stimulator Social History Social History Smoking status: Never smoker Alcohol intake: never Substance use: never Substance use type: does not use Spiritual care concerns: Yes Meds Home Medications and Allergies Home Medications Medication Instructions Recorded Confirmed Type amitriptyline 10 mg HS 08/04/21 11/17/21 History amlodipine 10 mg PO DAILY #0 08/04/21 11/17/21 History cyanocobalamin (vitamin B-12) 1,000 mcg PO DAILY #0 08/04/21 11/17/21 History dextroamphetamine-amphetamine 20 mg PO DAILY 08/04/21 11/17/21 History [Adderall] duloxetine 30 mg PO DAILY 08/04/21 11/17/21 History ergocalciferol (vitamin D2) 50,000 unit WEEKLY 08/04/21 11/17/21 History estradiol 1 mg PO DAILY 08/04/21 11/17/21 History famotidine [Pepcid] 40 mg PO BID 08/04/21 11/17/21 History gabapentin 600 mg PO BID 08/04/21 11/17/21 History hydroxychloroquine 200 mg PO BID 08/04/21 11/17/21 History hydroxyzine HCl 50 mg PO TID PRN 08/04/21 11/17/21 History lamotrigine 200 mg PO DAILY 08/04/21 11/17/21 History levomefolate calcium 15 mg PO DAILY 08/04/21 11/17/21 History methotrexate sodium [Methotrexate 20 mg PO WEEKLY #0 08/04/21 11/17/21 History (Anti-Rheumatic)] modafinil 200 mg PO QAM 08/04/21 11/17/21 History multivitamin [A To Z Multivitamin] 1 tablet PO DAILY #0 08/04/21 11/17/21 History oxycodone-acetaminophen [Percocet] 1 tablet PO Q4H PRN 08/04/21 11/17/21 History potassium chloride 20 meq PO BID PRN #0 08/04/21 11/17/21 History promethazine 25 mg RECTAL Q6H PRN #0 08/04/21 11/17/21 History ropinirole 2 mg PO HS 08/04/21 11/17/21 History tizanidine 4 mg TID PRN 08/04/21 11/17/21 History zolpidem 12.5 mg PO HS 08/04/21 11/17/21 History Allergies Allergy/AdvReac Type Severity Reaction Status Date / Time amoxicillin Allergy Unknown Rash Verified 11/16/21 18:27 meperidine Allergy Unknown Verified 11/16/21 18:27 Penicillins Allergy Unknown unknown Verified 11/16/21 18:27 prochlorperazine Allergy Unknown unknown Verified 11/16/21 18:27 Sulfa (Sulfonamide Allergy Unknown unknown Verified 11/16/21 18:27 Antibiotics) Vital Signs Vital Signs - 24 hr 11/16/21 16:32 11/16/21 18:27 11/16/21 18:32 Temperature 97.8 F Pulse Rate 117 H 113 H Respiratory Rate 18 16 Blood Pressure 166/109 H 162/69 H Pulse Oximetry 97 95 96 11/16/21 18:45 11/16/21 19:00 11/16/21 19:16 Temperature Pulse Rate Respiratory Rate Blood Pressure Pulse Oximetry 96 99 100 11/16/21 19:58 11/16/21 20:00 11/16/21 20:01 Temperature Pulse Rate Respiratory Rate Blood Pressure 197/96 H 196/92 H Pulse Oximetry 97 98 98 11/17/21 00:45 11/17/21 04:00 11/17/21 05:53 Temperature 98.8 F
[2021-11-17] MEDS: SODIUM CHLORIDE 0.9% IV 1,000 ML 100 ML IV CONT ×2 (09:34→21:44)
[2021-11-17] MEDS: POTASSIUM CHLORIDE 20 MEQ PACKET (FOR LIQUID) 40 MEQ PO (09:35)
[2021-11-17 10:13] LABS: Acetaminophen < 10 ug/mL (10-30); Creatine Kinase 63 U/L (30-135)
[2021-11-17 10:14] LABS: Ammonia < 9 umol/L (9-30); Ethanol < 10 mg/dL (<10); Magnesium 1.8 mg/dL (1.6-2.3)
[2021-11-17 10:15] LABS: INR 1.1; Prothrombin Time 13.6 Seconds (11.1-14.7)
[2021-11-17 10:32] LABS: Phosphorus 3.6 mg/dL (2.5-4.5)
[2021-11-17 10:39] LABS: Iron 135 ug/dL (37-170); Percent Iron Saturation 40 % (20-50)
[2021-11-17] MEDS: amLODIPine BESYLATE 5 MG TABLET 10 MG PO (10:45)
[2021-11-17 10:46] LABS: Procalcitonin 0.1 ng/mL
[2021-11-17] MEDS: FAMOTIDINE 20 MG TABLET 40 MG PO ×2 (10:46→21:31)
[2021-11-17] MEDS: DULoxetine HCL 30 MG CAPSULE.DR PO (10:46)
[2021-11-17] MEDS: CYANOCOBALAMIN 1,000 MCG TABLET 1000 MCG PO (10:46)
[2021-11-17] MEDS: GABAPENTIN 300 MG CAPSULE 600 MG PO ×2 (10:46→16:17)
[2021-11-17] MEDS: HEPARIN SODIUM 5,000 UNITS/ML VIAL 5000 UNITS SUB-Q ×2 (10:48→21:31)
[2021-11-17 10:52] LABS: Vitamin D 25 Hydroxy 35.1 ng/mL
[2021-11-17] MEDS: LORazepam (*CRX) 0.5 MG TABLET PO (10:54)
[2021-11-17 11:04] LABS: Hepatitis B Surface Antigen Negative (Negative)
[2021-11-17 11:07] LABS: Lactic Acid Reflex < 0.5 mmol/L (0.7-2.0)
[2021-11-17 11:10] LABS: HAV RESULT Negative (Negative); Hepatitis B Core IgM Result Negative (Negative)
[2021-11-17 11:21] LABS: Hepatitis C Virus Antibody Negative (Negative)
[2021-11-17 11:25] LABS: Barbiturate Screen Urine Negative (Negative); Benzodiazepines Screen Urine Negative (Negative)
[2021-11-17 11:27] LABS: Amphetamine Screen Urine Positive (Negative); Cannabinoid Screen Urine Positive (Negative); Cocaine Screen Urine Negative (Negative); Methadone Screen Urine Negative (Negative); Opiate Screen Urine Positive (Negative); Phencyclidine Screen Urine Negative (Negative)
[2021-11-17 11:42] LABS: Folic Acid > 20.0 ng/mL (2.76->20); Vitamin B12 > 1000.0 pg/mL (239-931)
[2021-11-17] MEDS: TIZANIDINE HCL 4 MG TABLET BY MOUTH (16:17)
[2021-11-17] MEDS: rOPINIRole HCL 1 MG TABLET 2 MG PO (21:31)
[2021-11-17] MEDS: AMITRIPTYLINE HCL 10 MG TABLET BY MOUTH (21:31)
[2021-11-17] MEDS: ONDANSETRON INJ 4 MG/2 ML VIAL IV PUSH (21:43)
[2021-11-18] VITALS (9 sets, daily range): BP systolic 150–155; BP diastolic 69–86; PULSE 85–103; RESP 16–20; TEMP 36.1–36.4; O2SAT 97–99
[2021-11-18] MEDS: LORazepam (*CRX) 0.5 MG TABLET PO (00:18)
[2021-11-18] MEDS: HYDROmorphone HCL INJ (*CRX) 1 MG/ML SYR 0.5 MG IV PUSH ×5 (02:01→22:02)
[2021-11-18] MEDS: TIZANIDINE HCL 4 MG TABLET BY MOUTH (04:59)
[2021-11-18 07:10] LABS: Basophils Absolute Auto 0.1 K/mm3 (0.0-0.1); Basophils Percent Auto 1.1 % (0.2-1.2); Eosinophils Absolute Auto 0.3 K/mm3 (0-0.3); Eosinophils Percent Auto 3.7 % (0-4.4); Hematocrit 38.2 % (37.0-47.0); Hemoglobin 11.9 g/dL (12.0-15.0); Immature Granulocyte Absolute 0.06 K/mm3 (0.00-0.031); Immature Granulocyte Percent A 0.8 % (0-0.5); Lymphocytes Absolute Auto 2.72 K/mm3 (0.9-3.2); Lymphocytes Percent Auto 35.8 % (18.3-44.2); Mean Corpuscular HGB Conc 31.2 g/dl (32-36); Mean Corpuscular Volume 92.9 fl (80-100); Mean Platelet Volume 9.9 fl (7.4-10.4); Monocytes Absolute Auto 0.5 K/mm3 (0.1-0.6); Monocytes Percent Auto 6.3 % (2.6-8.5); Neutrophils Percent Auto 52.3 % (45.5-73.1); Platelet Count Result 181 k/mm3 (150-375); Red Blood Count 4.11 M/mm3 (4.2-5.4); Red Cell Distribution Width 14.9 % (11.5-14.5); White Blood Count 7.6 K/mm3 (4.5-10.0)
[2021-11-18 07:22] LABS: INR 1.1; Prothrombin Time 13.9 Seconds (11.1-14.7)
[2021-11-18 07:24] LABS: Alanine Aminotransferase 578 U/L (4-35); Albumin Level 3.1 g/dL (3.5-5.1); Alkaline Phosphatase 185 U/L (38-126); Anion Gap 5 mmol/L (8-16); Aspartate Amino Transferase 275 U/L (14-36); Bilirubin,Total 0.9 mg/dL (0.2-1.3); Blood Urea Nitrogen 11 mg/dL (7-17); CRP 1.4 mg/dL (<1.0); Calcium 7.7 mg/dL (8.4-10.2); Carbon Dioxide 22 mmol/L (22-30); Chloride 103 mmol/L (98-107); Estimated CRCL calculation 108 ml/min; Estimated Glomerular Filt Rate > 60; Glucose 114 mg/dL (65-110); Magnesium 1.7 mg/dL (1.6-2.3); Potassium 3.3 mmol/L (3.4-5.0); Sodium 130 mmol/L (137-145)
[2021-11-18] MEDS: SODIUM CHLORIDE 0.9% IV 1,000 ML 100 ML IV CONT ×2 (07:30→16:59)
[2021-11-18] MEDS: DULoxetine HCL 30 MG CAPSULE.DR PO (08:40)
[2021-11-18] MEDS: amLODIPine BESYLATE 5 MG TABLET 10 MG PO (08:40)
[2021-11-18] MEDS: FAMOTIDINE 20 MG TABLET 40 MG PO ×2 (08:40→20:49)
[2021-11-18] MEDS: ERGOCALCIFEROL 50,000 UNIT CAPSULE 50000 UNITS BY MOUTH (08:40)
[2021-11-18] MEDS: MULTIVITAMINS THERAPEUTIC TAB (*BKC) 1 TABLET PO (08:40)
[2021-11-18] MEDS: GABAPENTIN 300 MG CAPSULE 600 MG PO ×2 (08:40→16:52)
[2021-11-18] MEDS: HEPARIN SODIUM 5,000 UNITS/ML VIAL 5000 UNITS SUB-Q ×2 (08:41→20:49)
[2021-11-18] MEDS: CYANOCOBALAMIN 1,000 MCG TABLET 1000 MCG PO (08:41)
[2021-11-18] MEDS: FOLIC ACID 1 MG TABLET PO (08:41)
[2021-11-18] MEDS: modafiniL (*CRX) 200 MG TABLET PO (08:44)
[2021-11-18 09:09] LABS: Ferritin > 2000.00 ng/mL (11.1-264)
--- NOTE | 2021-11-18 09:43 | PM.IMPN ---
Progress Note: A&P Assessment and Plan (1) Rheumatoid arthritis: Code(s): M06.9 - Rheumatoid arthritis, unspecified Status: Acute Assessment and Plan: Patient on hydrochloroquine and methotrexate No evidence of active rheumatoid arthritis Hold hydrochlorothiazide wean and methotrexate pending GI evaluation (2) Chronic pain syndrome: Code(s): G89.4 - Chronic pain syndrome Status: Acute Assessment and Plan: Counseling pain medication ordered discussed with the nurse (3) Acute hypokalemia: Code(s): E87.6 - Hypokalemia Status: Acute Assessment and Plan: Replace check magnesium level (4) Hypertension: Code(s): I10 - Essential (primary) hypertension Status: Acute Assessment and Plan: Uncontrolled resume amlodipine started p.r.n. hydralazine (5) Neuropathy: Code(s): G62.9 - Polyneuropathy, unspecified Status: Acute Assessment and Plan: Hold gabapentin as patient has acute liver failure (6) Hyperparathyroidism: Code(s): E21.3 - Hyperparathyroidism, unspecified Status: Acute Assessment and Plan: Monitor calcium level (7) Nausea vomiting and diarrhea: Code(s): R11.2 - Nausea with vomiting, unspecified; R19.7 - Diarrhea, unspecified Status: Acute Assessment and Plan: Probable gastroenteritis rule out acute viral hepatitis rule out methotrexate toxicity probably related to acute hepatitis Pending GI evaluation Concern for obstructive jaundice Dilated bile duct probably patient has choledocholithiasis with spontaneous passage of the stone (8) Abnormal LFTs: Code(s): R79.89 - Other specified abnormal findings of blood chemistry Status: Acute Assessment and Plan: Acute hepatic failure Daily LFT daily INR GI consult Reviewed ultrasound of the abdomen showed mildly dilated gallbladder and common bile duct [address] scan of the abdomen Acute hepatitis panel negative pending hepatitis E follow lamotrigine level Ferritin level is more than 2000 most likely acute phase reactant Hold gabapentin lamotrigine hydrochloroquine and methotrexate Alcohol level and Tylenol level acute hep panel ivf (9) DVT prophylaxis: Code(s): Z29.9 - Encounter for prophylactic measures, unspecified Status: Acute Assessment and Plan: heparin Subjective Date/time seen: 11/18/21 09:43 Interval history: 51 years old female with past medical history of hypertension rheumatoid arthritis amlodipine overdose presented to the hospital with nausea and vomiting started 5 days ago worsening gradually and able to tolerate food associated with diarrhea multiple times a day worsening yesterday patient has 5 episodes of diarrhea yesterday, patient also complain of abdominal pain specially lower quadrant but currently generalized patient denies fever or chills at the ER CT scan was done was negative for acute finding other than hydrops of gallbladder patient had mild leukocytosis hyponatremia elevated LFT ultrasound shows mildly distended gallbladder common bile duct 7 mm GI was consulted hepatotoxic medication was held urine drug screen was positive for benzo amphetamine cannabinoid opiate LFT is trending down leukocytosis resolved pending GI evaluation Patient feels patient still have subjective pain Patient denies fever headache chest pain shortness of breath I am seeing the patient for abdominal pain Exam Narrative: Alert Patient seemed comfortable Patient was texting over the phone at the time of me entering the room Seems pain is controlled Chest no wheeze crackles Abdomen right hypochondrial tenderness CVS S1 + S2 Negative Lower extremity edema Objective Data Vital Signs Vital Signs: Vital Signs - 24 hr 11/17/21 14:00 11/17/21 16:53 11/17/21 20:00 Temperature 98.0 F Pulse Rate 95 93 78 Respiratory Rate 18 Blood Pressure 131/61 Pulse Oximetry 95 11/17/21
[2021-11-18 17:09] LABS: Appearance Urine Clear (Clear); Bilirubin Urine Negative (Negative); Blood Urine 2+ (Negative); Color Urine Yellow (Yellow); Glucose Urine UA Negative (Negative); Ketones Urine Negative (Negative); Leukocyte Esterase Ur Negative LEU/UL (Negative); Nitrate Urine Negative (Negative); Protein Urine Negative (Negative); pH Urine 6.5 (5.0-9.0)
[2021-11-18 17:18] LABS: Bacteria Urine Trace /hpf; RBC Urine 0-2 /hpf (0-2); Squamous Epithelial Cell Urine Occasional /hpf (Few); WBC Urine 0-3 /hpf
[2021-11-18 17:19] LABS: Add Urine Microscopic? YES
--- NOTE | 2021-11-18 18:14 | WPDGICN ---
Assessment and Plan Assessment and plan (1) RUQ pain: Code(s): R10.11 - Right upper quadrant pain Status: Acute Assessment and Plan: history is highly suggestive of biliary colic, also wonder if she could have passed a stone (I ordered MRCP but unfortunately can not get done because spinal stimulator) will ask surgery to evaluate, probably will need cholecystectomy (she also was in the hospital earlier this year with pancreatitis- wonder if was GS related) continue with medical treatment (2) Abnormal LFTs: Code(s): R79.89 - Other specified abnormal findings of blood chemistry Status: Acute Assessment and Plan: probably biliary source, ? passed stone hepatitis panel negative will get HIDA scan (3) Biliary colic: Code(s): K80.50 - Calculus of bile duct without cholangitis or cholecystitis without obstruction Status: Acute Assessment and Plan: recently more frequent (4) Nausea and vomiting in adult: Code(s): R11.2 - Nausea with vomiting, unspecified Status: Acute Assessment and Plan: on admission (5) Chronic pain syndrome: Code(s): G89.4 - Chronic pain syndrome Status: Acute GI Consult Note Consult date/time: 11/18/21 18:14 Reason for consult: ruq pain, elevated liver enzymes HPI: Rosalinda Manrique is a 51 year old female with past medical history of chronic pain syndrome, gastric bypass about 15 yrs ago, C5-C6 fusion- she has a spinal cord stimulator, hyperparathyroidism status post parathyroidectomy, essential hypertension, neuropathy, anxiety on meds with most recent hospitalization 10/2021 after accidental amlodipine overdose that was treated medically. Previously she was in the hospital 07/2021 with pancreatitis. She says that for years had intermittent pain in ruq however most recently every 1-2 months. This time with more severe pain in ruq, had chills and associated to nausea and vomiting, pain is better with pain meds but not gone. She was told in the past that may need cholecystectomy. CT scan a/p reviewed and showed liver steatosis. Gallbladder hydrops of uncertain etiology. There is no CT evidence of cholelithiasis, acute cholecystitis, or biliary duct dilation. RUQ ultrasound showed persistent mild distention of the gallbladder and common bile duct 7mm, diffuse hepatic steatosis. Also had elevated liver enzymes on arrival with bili 2 down to 0.9, transaminase 900-1000 down to 500's. Lipase 321. Hepatitis panel negative. No alcohol use. Review of Systems Constitutional: Constitutional: Reports chills Eyes: Eyes: Denies blurry vision ENT: Reports Normal hearing present Cardiovascular: Cardiovascular: Denies chest pain Respiratory: Respiratory: Denies dyspnea Gastrointestinal: Gastrointestinal: Reports abdominal pain, Reports nausea and Reports vomiting Genitourinary: Genitourinary: Denies hematuria Musculoskeletal: Musculoskeletal: Reports back pain Integumentary/Breasts: Skin/Breast: Denies dry skin Neurologic: Denies headache(s) Psychiatric: Psychiatric: Reports anxiety [facility] Past Medical History Medical History (Updated 11/18/21 @ 18:23 by Alex Nguyen MD) Anxiety Biliary colic Chronic pain syndrome Hyperparathyroidism Hypertension Nausea and vomiting in adult Neuropathy Rheumatoid arteritis RUQ pain Surgical History Surgical History H/O parathyroidectomy H/O: hysterectomy S/P insertion of spinal cord stimulator Social History Social History Smoking status: Never smoker Alcohol intake: never Substance use: never Substance use type: does not use Spiritual care concerns: Yes Meds Home Medications and Allergies Home Medications Medication Instructions Recorded Confirmed Type amitriptyline 10 mg HS 08/04/21 11/17/21 History amlodipine 10 mg PO VAMSI
[2021-11-18] MEDS: rOPINIRole HCL 1 MG TABLET 2 MG PO (20:49)
[2021-11-18] MEDS: AMITRIPTYLINE HCL 10 MG TABLET BY MOUTH (20:49)
[2021-11-18] MEDS: ZOLPIDEM TARTRATE (*CRX) 5 MG TABLET 10 MG PO (20:51)
[2021-11-19] VITALS (9 sets, daily range): BP systolic 125–158; BP diastolic 68–79; PULSE 84–104; RESP 15–20; TEMP 36.3–37.1; O2SAT 92–98
[2021-11-19] MEDS: HYDROmorphone HCL INJ (*CRX) 1 MG/ML SYR 0.5 MG IV PUSH ×6 (02:19→23:12)
[2021-11-19] MEDS: SODIUM CHLORIDE 0.9% IV 1,000 ML 100 ML IV CONT ×2 (04:00→12:42)
[2021-11-19] MEDS: TIZANIDINE HCL 4 MG TABLET BY MOUTH (04:02)
[2021-11-19 07:14] LABS: Basophils Percent Auto 0.7 % (0.2-1.2); Eosinophils Absolute Auto 0.2 K/mm3 (0-0.3); Hematocrit 33.8 % (37.0-47.0); Immature Granulocyte Absolute 0.05 K/mm3 (0.00-0.031); Immature Granulocyte Percent A 0.9 % (0-0.5); Lymphocytes Absolute Auto 2.09 K/mm3 (0.9-3.2); Lymphocytes Percent Auto 36.3 % (18.3-44.2); Mean Corpuscular HGB Conc 32.5 g/dl (32-36); Mean Corpuscular Hemoglobin 29.3 pg (26-34); Mean Corpuscular Volume 90.1 fl (80-100); Mean Platelet Volume 9.8 fl (7.4-10.4); Monocytes Absolute Auto 0.4 K/mm3 (0.1-0.6); Monocytes Percent Auto 6.3 % (2.6-8.5); Neutrophils Percent Auto 51.8 % (45.5-73.1); Platelet Count Result 121 k/mm3 (150-375); Red Blood Count 3.75 M/mm3 (4.2-5.4); Red Cell Distribution Width 14.9 % (11.5-14.5); White Blood Count 5.8 K/mm3 (4.5-10.0)
[2021-11-19 07:30] LABS: Alanine Aminotransferase 385 U/L (4-35); Albumin Level 2.9 g/dL (3.5-5.1); Alkaline Phosphatase 166 U/L (38-126); Anion Gap 2 mmol/L (8-16); Aspartate Amino Transferase 137 U/L (14-36); Bilirubin,Total 0.5 mg/dL (0.2-1.3); Blood Urea Nitrogen 3 mg/dL (7-17); CRP 1.1 mg/dL (<1.0); Calcium 7.6 mg/dL (8.4-10.2); Carbon Dioxide 26 mmol/L (22-30); Chloride 107 mmol/L (98-107); Estimated CRCL calculation 124 ml/min; Estimated Glomerular Filt Rate > 60; Glucose 115 mg/dL (65-110); Magnesium 1.8 mg/dL (1.6-2.3); Potassium 3.1 mmol/L (3.4-5.0); Sodium 135 mmol/L (137-145)
[2021-11-19] MEDS: amLODIPine BESYLATE 5 MG TABLET 10 MG PO (08:40)
[2021-11-19] MEDS: CYANOCOBALAMIN 1,000 MCG TABLET 1000 MCG PO (08:40)
[2021-11-19] MEDS: DULoxetine HCL 30 MG CAPSULE.DR PO (08:40)
[2021-11-19] MEDS: FAMOTIDINE 20 MG TABLET 40 MG PO ×2 (08:41→21:10)
[2021-11-19] MEDS: GABAPENTIN 300 MG CAPSULE 600 MG PO ×2 (08:41→16:11)
[2021-11-19] MEDS: FOLIC ACID 1 MG TABLET PO (08:41)
[2021-11-19] MEDS: MULTIVITAMINS THERAPEUTIC TAB (*BKC) 1 TABLET PO (08:41)
[2021-11-19] MEDS: oxyCODONE HCL (*CRX) 5 MG TAB IR PO ×2 (08:46→17:21)
[2021-11-19] MEDS: modafiniL (*CRX) 200 MG TABLET PO (08:46)
[2021-11-19] MEDS: HEPARIN SODIUM 5,000 UNITS/ML VIAL 5000 UNITS SUB-Q ×2 (08:47→21:10)
--- NOTE | 2021-11-19 09:47 | PM.IMPN ---
Progress Note: A&P Assessment and Plan (1) Rheumatoid arthritis: Code(s): M06.9 - Rheumatoid arthritis, unspecified Status: Acute Assessment and Plan: Patient on hydrochloroquine and methotrexate No evidence of active rheumatoid arthritis Hold hydrochlorothiazide wean and methotrexate LFT improving (2) Chronic pain syndrome: Code(s): G89.4 - Chronic pain syndrome Status: Acute Assessment and Plan: Counseling pain medication ordered discussed with the nurse (3) Acute hypokalemia: Code(s): E87.6 - Hypokalemia Status: Acute Assessment and Plan: Replaced (4) Hypertension: Code(s): I10 - Essential (primary) hypertension Status: Acute Assessment and Plan: Uncontrolled resume amlodipine started p.r.n. hydralazine (5) Neuropathy: Code(s): G62.9 - Polyneuropathy, unspecified Status: Acute Assessment and Plan: Hold gabapentin as patient has acute liver failure (6) Hyperparathyroidism: Code(s): E21.3 - Hyperparathyroidism, unspecified Status: Acute Assessment and Plan: Monitor calcium level (7) Nausea vomiting and diarrhea: Code(s): R11.2 - Nausea with vomiting, unspecified; R19.7 - Diarrhea, unspecified Status: Acute Assessment and Plan: Probable gastroenteritis rule out acute viral hepatitis rule out methotrexate toxicity probably related to acute hepatitis Pending GI evaluation Concern for obstructive jaundice Dilated bile duct probably patient has choledocholithiasis with spontaneous passage of the stone (8) Abnormal LFTs: Code(s): R79.89 - Other specified abnormal findings of blood chemistry Status: Acute Assessment and Plan: Acute hepatic failure Daily LFT daily INR GI consult Reviewed ultrasound of the abdomen showed mildly dilated gallbladder and common bile duct [address] scan of the abdomen Acute hepatitis panel negative pending hepatitis E follow lamotrigine level Ferritin level is more than 2000 most likely acute phase reactant Hold gabapentin lamotrigine hydrochloroquine and methotrexate Alcohol level and Tylenol level acute hep panel ivf Blood culture positive start IV antibiotic probably contaminant will repeat blood culture Concern for cholecystitis surgery was consulted (9) DVT prophylaxis: Code(s): Z29.9 - Encounter for prophylactic measures, unspecified Status: Acute Assessment and Plan: heparin Subjective Date/time seen: 11/19/21 09:47 Interval history: 51 years old female with past medical history of hypertension rheumatoid arthritis amlodipine overdose presented to the hospital with nausea and vomiting started 5 days ago worsening gradually and able to tolerate food associated with diarrhea multiple times a day worsening yesterday patient has 5 episodes of diarrhea yesterday, patient also complain of abdominal pain specially lower quadrant but currently generalized patient denies fever or chills at the ER CT scan was done was negative for acute finding other than hydrops of gallbladder patient had mild leukocytosis hyponatremia elevated LFT ultrasound shows mildly distended gallbladder common bile duct 7 mm GI was consulted hepatotoxic medication was held urine drug screen was positive for benzo amphetamine cannabinoid opiate LFT is trending down leukocytosis resolved pending GI evaluation Patient feels patient still have subjective pain Patient was sleeping when I went to the room looked comfortable I discussed with the nurse I discussed with the patient Hold for question and addressed to full satisfaction patient pronounced understanding plan of care patient was able to to understand and verbalized the plan of care Pending surgery evaluation Patient denies fever headache chest pain shortness of breath I am seeing the patient for abdominal pain Exam Narrative: Alert Patient seemed comfortable Patient was comfortably
[2021-11-19] MEDS: metroNIDAZOLE 500 MG/ISO 100ML 500 MG/100 ML BAG 100 MG IVPB ×3 (12:07→21:10)
[2021-11-19] MEDS: LORazepam (*CRX) 0.5 MG TABLET PO ×2 (12:14→22:16)
--- NOTE | 2021-11-19 17:37 | PM.CNGS ---
Assessment and Plan Assessment and plan (1) RUQ pain: Onset Date: Unknown Code(s): R10.11 - Right upper quadrant pain Status: Acute Assessment and Plan: This is been on off for the patient for several years. Becoming more frequent recently. She had mild elevation of her lipase in July of this year when previously checked. Also mild elevation into the 300s on admission this visit. One wonders if she has very fine gallbladder sludge that occasionally comes out obstructs her common duct briefly and then is able to pass through. At this time her liver functions are improving. However, her pain is continuing. Since her gallbladder is enlarged on ultrasound there is a small chance we could be missing of very small stone or obstructed duct. Therefore I agree with proceeding to a HIDA scan with ejection fraction if the gallbladder fills. See note below under additional plan. (2) Abnormal LFTs: Onset Date: ~10/2021 Code(s): R79.89 - Other specified abnormal findings of blood chemistry Status: Acute Assessment and Plan: These are actually gradually improving at this time repeat studies ordered for tomorrow. I had a lipase to be sure that her pancreatitis has cleared. So far all hepatitis screening is negative. She is on a significant number of medications. Side effects of the medication would be another possibility for arise in these. (3) Nausea vomiting and diarrhea: Onset Date: ~11/2021 Code(s): R11.2 - Nausea with vomiting, unspecified; R19.7 - Diarrhea, unspecified Status: Acute Assessment and Plan: This worsened over the last few days prior to her admission. This is now improved with treatment. She states she has not had a stool for 2 days. (4) Hyperparathyroidism: Onset Date: ~2019 Code(s): E21.3 - Hyperparathyroidism, unspecified Status: Acute Assessment and Plan: Patient has worked with the ENT physician at [facility] in [facility]. She has had 2 previous surgeries the most recent 1 approximately 4 months ago. Calcium levels are in a slightly low to normal range at this time and over the recent past. (5) Chronic pain syndrome: Code(s): G89.4 - Chronic pain syndrome Status: Acute Additional Plan I had a thorough discussion with the patient regarding her current situation. Dr. Donald gutierrez was also present from GI and we discussed her situation with her. At this time I would recommend that we proceed with the HIDA scan as recommended by Dr. Lemon yesterday. This will help us decide whether not she has to have her gallbladder out. If the gallbladder does not ever fill on HIDA scan it would suggest acute cholecystitis and it would be best for the patient to consider proceeding to laparoscopic or open cholecystectomy as can be performed. I discussed with her the risks, benefits, possible complications of doing this surgery including possible injury to surrounding organs, injury to the common bile duct, bleeding or infection. This time this is not an urgent situation that we can tell. Her white count is normal. She did have a preliminary blood culture come back positive for a Gram negative bacilli and this is still waiting identification. Patient is on antibiotics to cover this at this time. I would agree with that. Await results of HIDA scan with ejection fraction to see if the gallbladder fills on Sunday If the gallbladder fills and there was a reasonable ejection fraction consider trial of Actigall and then if patient continues to have episodes of RUQ pain problems proceed to an elective laparoscopic cholecystectomy If gallbladder does not fill consider laparoscopic cholecystectomy possible open during this admission. History of Present Illness Consult details Consult date: 11/19/21 Reason for consult: abdominal pain Requesting physician: Bowen Bronson M.A., MD Narrative: This is a 51 year old female wit
--- NOTE | 2021-11-19 17:55 | WPDGIPROGNO ---
Progress Note: A&P Additional Plan GI Berta for AM 19 Nov [address] Emmanuel (Surgery) in room Patient still with intermittent, severe RUQ pain radiating to the right flank. Nausea but no vomiting. No BM x 2 days. Getting clears. VSS soft/NT Hct 34. TBili 0.9-> 0.5, A/P 185->166, AST 275->137, ALT 578->385 Assessment and Plan A. RUQ pain, nausea, vomiting with abnormal LFT's and abnormal imaging-biliary: - Symptoms and LFT's slightly improved - Continue clears - HIDA with GB EF 11/21/2021 - PPI - Patient has history of gastric bypass; not a candidate for ERCP at [facility] - Consider lap CCx B. Abnormal LFT's and abnormal imaging-liver: - Hepatic Steatosis on CT - LFT's improving; follow for now C. Chronic blood loss anemia: mild; observe for now. Case discussed with Dr. Emmanuel at bedside. Thanks, [facility] [phone] Subjective Date/time seen: 11/19/21 17:55 Objective Data Vital Signs Vital Signs: Vital Signs - 24 hr 11/18/21 20:00 11/18/21 21:30 11/19/21 00:00 Temperature 36.1 C L Pulse Rate 99 103 H 91 Respiratory Rate 16 Blood Pressure 155/69 H Pulse Oximetry 97 11/19/21 04:00 11/19/21 06:00 11/19/21 08:00 Temperature 37.1 C Pulse Rate 104 H 84 87 Respiratory Rate 18 Blood Pressure 125/68 Pulse Oximetry 96 11/19/21 12:00 11/19/21 14:00 11/19/21 16:00 Temperature 36.7 C Pulse Rate 86 90 95 Respiratory Rate 15 Blood Pressure 137/75 Pulse Oximetry 98 Intake/Output Intake/Output: Intake & Output 11/16/21 11/17/21 11/18/21 11/19/21 23:59 23:59 23:59 23:59 Intake Total 1000 3460 3320 3280 Output Total 700 Balance 1000 3460 3320 2580 Meds/Results Medications: Active Medications Generic Name Dose Route Start Last Admin Trade Name Freq PRN Reason Stop Dose Admin Al Hydrox/Mg Hydrox/Simethicone 30 ml 11/17/21 09:15 Mag Hydrox/Al Hydrox/Simeth 30 Ml Udc PO QID PRN Dyspepsia Amitriptyline HCl 10 mg 11/17/21 21:00 11/18/21 20:49 Amitriptyline Hcl 10 Mg Tablet BY MOUTH 10 mg HS MABEL Administration Amlodipine Besylate 10 mg 11/17/21 09:00 11/19/21 08:40 Amlodipine Besylate 5 Mg Tablet PO 10 mg DAILY MABEL Administration Bisacodyl 5 mg 11/17/21 09:15 Bisacodyl 5 Mg Tablet Ec PO DAILY PRN Constipation Cyanocobalamin 1,000 mcg 11/17/21 09:00 11/19/21 08:40 Cyanocobalamin 1,000 Mcg Tablet PO 1,000 mcg DAILY MABEL Administration Duloxetine HCl 30 mg 11/17/21 09:00 11/19/21 08:40 Duloxetine Hcl 30 Mg Capsule.Dr PO 30 mg DAILY MABEL Administration Ergocalciferol 50,000 unit 11/18/21 09:00 11/18/21 08:40 Ergocalciferol 50,000 Unit Capsule BY MOUTH 50,000 unit Fr@0900 MABEL Administration Famotidine 40 mg 11/17/21 09:00 11/19/21 08:41 Famotidine 20 Mg Tablet PO 40 mg Q12HR MABEL Administration Folic Acid 1 mg 11/17/21 09:00 11/19/21 08:41 Folic Acid 1 Mg Tablet PO 1 mg QAM MABEL Administration Gabapentin 600 mg 11/17/21 09:00 11/19/21 16:11 Gabapentin 300 Mg Capsule PO 600 mg BID MABEL Administration Heparin Sodium (Porcine) 5,000 units 11/17/21 09:00 11/19/21 08:47 Heparin Sodium 5,000 Units/Ml Vial SUB-Q 5,000 units Q12HR MABEL Administration Hydralazine HCl 10 mg 11/17/21 09:07 Hydralazine Hcl 20 Mg/Ml Vial IV PUSH Q6H PRN Hypertension Hydromorphone HCl 0.5 mg 11/16/21 22:06 11/19/21 14:21 Hydromorphone Hcl Inj (*Crx) 1 Mg/Ml Syr IV PUSH 0.5 mg Q4H PRN Administration Pain Rated 7-10 Hydroxyzine HCl 50 mg 11/17/21 09:04 Hydroxyzine Hcl 25 Mg Tablet PO TID PRN Itching Sodium Chloride 1,000 mls @ 100 mls/hr 11/17/21 09:15 11/19/21 12:42 Normal Saline Iv IV CONT 100 mls/hr .Q10H MABEL Administration Acetaminophen 1,000 mg in 100 mls @ 400 mls/hr 11/18/21 22:41 Ofirmev 1,000 Mg Ivpb IVPB 11/19/21 22:40 Q6H PRN Pain Rated 4-6 Metronidazole 500 mg in 10
[2021-11-19] MEDS: rOPINIRole HCL 1 MG TABLET 2 MG PO (21:09)
[2021-11-19] MEDS: AMITRIPTYLINE HCL 10 MG TABLET BY MOUTH (21:10)
[2021-11-19 21:12] LABS: Lamotrigine Lamictal 2.7 mcg/mL (4.0-18.0)
[2021-11-20] VITALS (8 sets, daily range): BP systolic 127–153; BP diastolic 59–80; PULSE 80–103; RESP 18–20; TEMP 36.1–36.9; O2SAT 99
[2021-11-20] MEDS: SODIUM CHLORIDE 0.9% IV 1,000 ML 100 ML IV CONT ×2 (00:26→14:48)
[2021-11-20] MEDS: TIZANIDINE HCL 4 MG TABLET BY MOUTH ×2 (03:06→14:50)
[2021-11-20] MEDS: metroNIDAZOLE 500 MG/ISO 100ML 500 MG/100 ML BAG 100 MG IVPB ×2 (06:42→14:49)
[2021-11-20] MEDS: HYDROmorphone HCL INJ (*CRX) 1 MG/ML SYR 0.5 MG IV PUSH ×3 (08:06→17:55)
[2021-11-20 08:23] LABS: Basophils Percent Auto 0.6 % (0.2-1.2); Eosinophils Absolute Auto 0.2 K/mm3 (0-0.3); Eosinophils Percent Auto 3.2 % (0-4.4); Hematocrit 36.6 % (37.0-47.0); Hemoglobin 11.7 g/dL (12.0-15.0); Immature Granulocyte Absolute 0.02 K/mm3 (0.00-0.031); Immature Granulocyte Percent A 0.4 % (0-0.5); Lymphocytes Percent Auto 31.6 % (18.3-44.2); Mean Corpuscular Hemoglobin 29.4 pg (26-34); Mean Platelet Volume 10.2 fl (7.4-10.4); Monocytes Absolute Auto 0.4 K/mm3 (0.1-0.6); Neutrophils Absolute Auto 2.7 K/mm3 (1.3-6.7); Neutrophils Percent Auto 56.2 % (45.5-73.1); Platelet Count Result 117 k/mm3 (150-375); Red Blood Count 3.98 M/mm3 (4.2-5.4); Red Cell Distribution Width 15.3 % (11.5-14.5); White Blood Count 4.7 K/mm3 (4.5-10.0)
[2021-11-20 08:25] LABS: Alanine Aminotransferase 307 U/L (6-35); Albumin Level 3.1 g/dL (3.5-5.1); Alkaline Phosphatase 163 U/L (38-126); Anion Gap 4 mmol/L (8-16); Aspartate Amino Transferase 81 U/L (14-36); Bilirubin,Total 0.3 mg/dL (0.2-1.3); CRP 0.9 mg/dL (<1.0); Calcium 7.9 mg/dL (8.4-10.2); Carbon Dioxide 27 mmol/L (22-30); Chloride 107 mmol/L (98-107); Estimated CRCL calculation 124 ml/min; Estimated Glomerular Filt Rate > 60; Glucose 111 mg/dL (65-110); Lipase 165 U/L (23-300); Magnesium 1.8 mg/dL (1.6-2.3); Sodium 138 mmol/L (137-145)
[2021-11-20 08:26] LABS: Blood Urea Nitrogen < 2 mg/dL (7-17)
[2021-11-20] MEDS: FAMOTIDINE 20 MG TABLET 40 MG PO (08:42)
[2021-11-20] MEDS: modafiniL (*CRX) 200 MG TABLET PO (08:42)
[2021-11-20] MEDS: DULoxetine HCL 30 MG CAPSULE.DR PO (08:42)
[2021-11-20] MEDS: GABAPENTIN 300 MG CAPSULE 600 MG PO ×2 (08:42→18:38)
[2021-11-20] MEDS: HEPARIN SODIUM 5,000 UNITS/ML VIAL 5000 UNITS SUB-Q (08:42)
[2021-11-20] MEDS: MULTIVITAMINS THERAPEUTIC TAB (*BKC) 1 TABLET PO (08:42)
[2021-11-20] MEDS: FOLIC ACID 1 MG TABLET PO (08:43)
[2021-11-20] MEDS: CYANOCOBALAMIN 1,000 MCG TABLET 1000 MCG PO (08:43)
[2021-11-20] MEDS: amLODIPine BESYLATE 5 MG TABLET 10 MG PO (08:43)
[2021-11-20] MEDS: LORazepam (*CRX) 0.5 MG TABLET PO ×2 (08:46→21:08)
[2021-11-20 09:20] LABS: Prothrombin Time 12.8 Seconds (11.1-14.7)
--- NOTE | 2021-11-20 10:04 | PM.IMPN ---
Progress Note: A&P Assessment and Plan (1) Rheumatoid arthritis: Code(s): M06.9 - Rheumatoid arthritis, unspecified Status: Acute Assessment and Plan: Patient on hydrochloroquine and methotrexate No evidence of active rheumatoid arthritis Hold Plaquenil and methotrexate LFT improving will resume once okay with GI (2) Chronic pain syndrome: Code(s): G89.4 - Chronic pain syndrome Status: Acute Assessment and Plan: Counseling pain medication ordered discussed with the nurse (3) Acute hypokalemia: Code(s): E87.6 - Hypokalemia Status: Acute Assessment and Plan: Replaced (4) Hypertension: Code(s): I10 - Essential (primary) hypertension Status: Acute Assessment and Plan: Uncontrolled resume amlodipine started p.r.n. hydralazine (5) Neuropathy: Code(s): G62.9 - Polyneuropathy, unspecified Status: Acute Assessment and Plan: Hold gabapentin as patient has acute liver failure (6) Hyperparathyroidism: Onset Date: ~2019 Code(s): E21.3 - Hyperparathyroidism, unspecified Status: Acute Assessment and Plan: Monitor calcium level (7) Nausea vomiting and diarrhea: Onset Date: ~11/2021 Code(s): R11.2 - Nausea with vomiting, unspecified; R19.7 - Diarrhea, unspecified Status: Acute Assessment and Plan: Probable gastroenteritis rule out acute viral hepatitis rule out methotrexate toxicity probably related to acute hepatitis Pending GI evaluation Concern for obstructive jaundice Dilated bile duct probably patient has choledocholithiasis with spontaneous passage of the stone (8) Abnormal LFTs: Onset Date: ~10/2021 Code(s): R79.89 - Other specified abnormal findings of blood chemistry Status: Acute Assessment and Plan: Acute hepatic failure most likely related to obstructive jaundice most likely related to spontaneously passed gallstone Daily LFT daily INR GI consult Reviewed ultrasound of the abdomen showed mildly dilated gallbladder and common bile duct [address] scan of the abdomen Acute hepatitis panel negative pending hepatitis E follow lamotrigine level Ferritin level is more than 2000 most likely acute phase reactant Hold gabapentin lamotrigine hydrochloroquine and methotrexate Alcohol level and Tylenol level acute hep panel ivf Blood culture positive start IV antibiotic probably contaminant repeat blood culture Concern for cholecystitis surgery was consulted Pending HIDA scan possible plan for cholecystectomy Not candidate for MRCP due to spinal pain stimulator (9) DVT prophylaxis: Code(s): Z29.9 - Encounter for prophylactic measures, unspecified Status: Acute Assessment and Plan: heparin Subjective Date/time seen: 11/20/21 10:04 Interval history: 51 years old female with past medical history of hypertension rheumatoid arthritis amlodipine overdose presented to the hospital with nausea and vomiting started 5 days ago worsening gradually and able to tolerate food associated with diarrhea multiple times a day worsening yesterday patient has 5 episodes of diarrhea yesterday, patient also complain of abdominal pain specially lower quadrant but currently generalized patient denies fever or chills at the ER CT scan was done was negative for acute finding other than hydrops of gallbladder patient had mild leukocytosis hyponatremia elevated LFT ultrasound shows mildly distended gallbladder common bile duct 7 mm GI was consulted hepatotoxic medication was held urine drug screen was positive for benzo amphetamine cannabinoid opiate LFT is trending down leukocytosis resolved GI recommendation appreciated most likely patient had obstructive jaundice secondary to gallbladder stone/sludge which passed spontaneously unable to get MRCP due to patient has spinal cord stimulator surgery was consulted HIDA scan pending possible plan for cholecystectomy. Lb
--- NOTE | 2021-11-20 11:11 | WPDGIPROGNO ---
Progress Note: A&P Additional Plan GI Berta for [facility] 20 Nov 2021 Abdominal pain and nausea persists but mostly controlled with meds. Bayron clears. VSS soft, RUQ tenderness, mild Hct 34->37. TBili 0.9-> 0.5->0.3, A/P 185->166->163, AST 275->137->81, ALT 578->385->307 Assessment and Plan A. RUQ pain, nausea, vomiting with abnormal LFT's and abnormal imaging-biliary: - Symptoms and LFT's slightly improved - Continue clears - HIDA with GB EF 11/21/2021 - PPI - Patient has history of gastric bypass; not a candidate for ERCP at - [facility] - Consider lap CCx with IOC B. Abnormal LFT's and abnormal imaging-liver: - Hepatic Steatosis on CT - LFT's improving; follow for now C. Chronic blood loss anemia: mild; observe for now. Case discussed with Dr. Alcaraz. Further GI recommendations per [facility], [facility] [phone] Subjective Date/time seen: 11/20/21 11:11 Objective Data Vital Signs Vital Signs: Vital Signs - 24 hr 11/19/21 12:00 11/19/21 14:00 11/19/21 16:00 Temperature 36.7 C Pulse Rate 86 90 95 Respiratory Rate 15 Blood Pressure 137/75 Pulse Oximetry 98 11/19/21 20:00 11/19/21 22:00 11/20/21 00:00 Temperature 36.3 C L Pulse Rate 98 94 98 Respiratory Rate 20 Blood Pressure 158/79 H Pulse Oximetry 92 11/20/21 04:00 11/20/21 06:00 11/20/21 08:00 Temperature 36.1 C L Pulse Rate 87 80 91 Respiratory Rate 20 Blood Pressure 127/59 L Pulse Oximetry 99 Intake/Output Intake/Output: Intake & Output 11/17/21 11/18/21 11/19/21 11/20/21 23:59 23:59 23:59 23:59 Intake Total 3460 3320 5030 300 Output Total 1000 Balance 3460 3320 4030 300 Meds/Results Medications: Active Medications Generic Name Dose Route Start Last Admin Trade Name Freq PRN Reason Stop Dose Admin Al Hydrox/Mg Hydrox/Simethicone 30 ml 11/17/21 09:15 Mag Hydrox/Al Hydrox/Simeth 30 Ml Udc PO QID PRN Dyspepsia Amitriptyline HCl 10 mg 11/17/21 21:00 11/19/21 21:10 Amitriptyline Hcl 10 Mg Tablet BY MOUTH 10 mg HS MABEL Administration Amlodipine Besylate 10 mg 11/17/21 09:00 11/20/21 08:43 Amlodipine Besylate 5 Mg Tablet PO 10 mg DAILY MABEL Administration Bisacodyl 5 mg 11/17/21 09:15 Bisacodyl 5 Mg Tablet Ec PO DAILY PRN Constipation Cyanocobalamin 1,000 mcg 11/17/21 09:00 11/20/21 08:43 Cyanocobalamin 1,000 Mcg Tablet PO 1,000 mcg DAILY MABEL Administration Duloxetine HCl 30 mg 11/17/21 09:00 11/20/21 08:42 Duloxetine Hcl 30 Mg Capsule.Dr PO 30 mg DAILY MABEL Administration Ergocalciferol 50,000 unit 11/18/21 09:00 11/18/21 08:40 Ergocalciferol 50,000 Unit Capsule BY MOUTH 50,000 unit Fr@0900 MABEL Administration Famotidine 40 mg 11/17/21 09:00 11/20/21 08:42 Famotidine 20 Mg Tablet PO 40 mg Q12HR MABEL Administration Folic Acid 1 mg 11/17/21 09:00 11/20/21 08:43 Folic Acid 1 Mg Tablet PO 1 mg QAM MABEL Administration Gabapentin 600 mg 11/17/21 09:00 11/20/21 08:42 Gabapentin 300 Mg Capsule PO 600 mg BID MABEL Administration Heparin Sodium (Porcine) 5,000 units 11/17/21 09:00 11/20/21 08:42 Heparin Sodium 5,000 Units/Ml Vial SUB-Q 5,000 units Q12HR MABEL Administration Hydralazine HCl 10 mg 11/17/21 09:07 Hydralazine Hcl 20 Mg/Ml Vial IV PUSH Q6H PRN Hypertension Hydromorphone HCl 0.5 mg 11/16/21 22:06 11/20/21 08:06 Hydromorphone Hcl Inj (*Crx) 1 Mg/Ml Syr IV PUSH 0.5 mg Q4H PRN Administration Pain Rated 7-10 Hydroxyzine HCl 50 mg 11/17/21 09:04 Hydroxyzine Hcl 25 Mg Tablet PO TID PRN Itching Sodium Chloride 1,000 mls @ 100 mls/hr 11/17/21 09:15 11/20/21 00:26 Normal Saline Iv IV CONT 100 mls/hr .Q10H MABEL Administration Metronidazole 500 mg in 100 mls @ 100 mls/hr 11/19/21 10:00 11/20/21 06:42 Flagyl 500 Mg/Iso Soln 100 Ml IVPB 100 mls/hr Q8HR MABEL Administration Ceftriaxone Sodium/Dextrose 1 gm in 50
[2021-11-20] MEDS: POTASSIUM CHLORIDE 20 MEQ TABLET 40 MEQ PO ×2 (13:04→14:49)
[2021-11-20 14:11] LABS: IFOB Positive Control Positive; Immunochemical Fecal Occult Bl Positive (N)
--- NOTE | 2021-11-20 20:55 | PM.PNGS ---
Progress Note: A&P Assessment and Plan (1) RUQ pain: Onset Date: Unknown Code(s): R10.11 - Right upper quadrant pain Status: Acute Assessment and Plan: This is been on off for the patient for several years. Becoming more frequent recently. She had mild elevation of her lipase in July of this year when previously checked. Also mild elevation into the 300s on admission this visit. One wonders if she has very fine gallbladder sludge that occasionally comes out obstructs her common duct briefly and then is able to pass through. At this time her liver functions are improving. However, her pain is continuing. Since her gallbladder is enlarged on ultrasound there is a small chance we could be missing of very small stone or obstructed duct. Therefore I agree with proceeding to a HIDA scan with ejection fraction if the gallbladder fills. See note below under additional plan. (2) Abnormal LFTs: Onset Date: ~10/2021 Code(s): R79.89 - Other specified abnormal findings of blood chemistry Status: Acute Assessment and Plan: These are actually gradually improving at this time repeat studies ordered for tomorrow. I had a lipase to be sure that her pancreatitis has cleared. So far all hepatitis screening is negative. She is on a significant number of medications. Side effects of the medication would be another possibility for arise in these. (3) Nausea vomiting and diarrhea: Onset Date: ~11/2021 Code(s): R11.2 - Nausea with vomiting, unspecified; R19.7 - Diarrhea, unspecified Status: Acute Assessment and Plan: This worsened over the last few days prior to her admission. This is now improved with treatment. She states she has not had a stool for 2 days. (4) Hyperparathyroidism: Onset Date: ~2019 Code(s): E21.3 - Hyperparathyroidism, unspecified Status: Acute Assessment and Plan: Patient has worked with the ENT physician at [facility]. She has had 2 previous surgeries the most recent 1 approximately 4 months ago. Calcium levels are in a slightly low to normal range at this time and over the recent past. (5) Chronic pain syndrome: Code(s): G89.4 - Chronic pain syndrome Status: Acute Additional Plan I had a thorough discussion with the patient regarding her current situation on 11/19. Dr. Hampton was also present from GI and we discussed her situation with her. At this time I would recommend that we proceed with the HIDA scan as recommended by Dr. Lemon. This will help us decide whether not she has to have her gallbladder out. If the gallbladder does not ever fill on HIDA scan it would suggest acute cholecystitis and it would be best for the patient to consider proceeding to laparoscopic or open cholecystectomy with an IOC (since with her previous gastric bypass she is poor candidate for any ERCP ). I discussed with her the risks, benefits, possible complications of doing this surgery including possible injury to surrounding organs, injury to the common bile duct, bleeding or infection. At this time this is not an urgent situation that we can tell. Her white count is normal. She did have a preliminary blood culture come back positive for a Gram negative bacilli and this is still waiting identification.(no final yet on 11/20). Patient is on antibiotics to cover this at this time. I would agree with that. Await results of HIDA scan with ejection fraction to see if the gallbladder fills on Sunday If the gallbladder fills and there was a reasonable ejection fraction consider trial of Actigall and then if patient continues to have episodes of RUQ pain problems we could then proceed to an elective laparoscopic cholecystectomy If gallbladder does not fill consider laparoscopic cholecystectomy with IOC, possible open during this admission. Subjective Subjective Date/Time Seen: 11/20/21 20:55 Patient reports: sti
[2021-11-20] MEDS: oxyCODONE HCL (*CRX) 5 MG TAB IR PO (21:07)
[2021-11-20] MEDS: ZOLPIDEM TARTRATE (*CRX) 5 MG TABLET 10 MG PO (23:54)
[2021-11-21] VITALS (9 sets, daily range): BP systolic 149–163; BP diastolic 69–87; PULSE 85–109; RESP 16–18; TEMP 36.1–36.6; O2SAT 95–100
[2021-11-21] MEDS: metroNIDAZOLE 500 MG/ISO 100ML 500 MG/100 ML BAG 100 MG IVPB ×4 (00:42→21:28)
[2021-11-21] MEDS: HYDROmorphone HCL INJ (*CRX) 1 MG/ML SYR 0.5 MG IV PUSH ×4 (03:23→17:31)
[2021-11-21] MEDS: SODIUM CHLORIDE 0.9% IV 1,000 ML 100 ML IV CONT ×2 (05:56→18:05)
[2021-11-21] MEDS: LORazepam (*CRX) 0.5 MG TABLET PO ×3 (06:01→21:17)
[2021-11-21] MEDS: oxyCODONE HCL (*CRX) 5 MG TAB IR PO (06:06)
[2021-11-21 06:45] LABS: INR 1.1; Prothrombin Time 13.5 Seconds (11.1-14.7)
[2021-11-21 06:50] LABS: Magnesium 1.7 mg/dL (1.6-2.3)
--- NOTE | 2021-11-21 09:53 | PM.IMPN ---
Progress Note: A&P Assessment and Plan (1) Rheumatoid arthritis: Code(s): M06.9 - Rheumatoid arthritis, unspecified Status: Acute Assessment and Plan: Patient on hydrochloroquine and methotrexate probably resume as outpatient vianey liver function improved Unlikely abnormal LFT related to medication most likely related to bile duct obstruction resolved spontaneously No evidence of active rheumatoid arthritis Hold Plaquenil and methotrexate LFT improving will resume once okay with GI probably as outpatient (2) Chronic pain syndrome: Code(s): G89.4 - Chronic pain syndrome Status: Acute Assessment and Plan: Counseling pain medication ordered discussed with the nurse (3) Acute hypokalemia: Code(s): E87.6 - Hypokalemia Status: Acute Assessment and Plan: Replaced (4) Hypertension: Code(s): I10 - Essential (primary) hypertension Status: Acute Assessment and Plan: Uncontrolled resume amlodipine started p.r.n. hydralazine (5) Neuropathy: Code(s): G62.9 - Polyneuropathy, unspecified Status: Acute Assessment and Plan: Hold gabapentin as patient has acute liver failure (6) Hyperparathyroidism: Onset Date: ~2019 Code(s): E21.3 - Hyperparathyroidism, unspecified Status: Acute Assessment and Plan: Patient follows up with ENT as outpatient Monitor calcium level (7) Nausea vomiting and diarrhea: Onset Date: ~11/2021 Code(s): R11.2 - Nausea with vomiting, unspecified; R19.7 - Diarrhea, unspecified Status: Acute Assessment and Plan: Probable gastroenteritis rule out acute viral hepatitis rule out methotrexate toxicity probably related to acute hepatitis Pending GI evaluation Concern for obstructive jaundice spontaneously resolved Dilated bile duct probably patient has choledocholithiasis with spontaneous passage of the stone (8) Abnormal LFTs: Onset Date: ~10/2021 Code(s): R79.89 - Other specified abnormal findings of blood chemistry Status: Acute Assessment and Plan: Acute hepatic failure most likely related to obstructive jaundice most likely related to spontaneously passed gallstone Daily LFT daily INR GI consult Reviewed ultrasound of the abdomen showed mildly dilated gallbladder and common bile duct [address] scan of the abdomen Acute hepatitis panel negative pending hepatitis E follow lamotrigine level Ferritin level is more than 2000 most likely acute phase reactant Hold gabapentin lamotrigine hydrochloroquine and methotrexate Alcohol level and Tylenol level acute hep panel ivf Blood culture positive start IV antibiotic probably contaminant repeat blood culture Concern for cholecystitis surgery was consulted Pending HIDA scan possible plan for cholecystectomy Not candidate for MRCP due to spinal cord pain stimulator (9) DVT prophylaxis: Code(s): Z29.9 - Encounter for prophylactic measures, unspecified Status: Acute Assessment and Plan: heparin Subjective Date/time seen: 11/21/21 09:53 Interval history: 51 years old female with past medical history of hypertension rheumatoid arthritis amlodipine overdose presented to the hospital with nausea and vomiting started 5 days ago worsening gradually and able to tolerate food associated with diarrhea multiple times a day worsening yesterday patient has 5 episodes of diarrhea yesterday, patient also complain of abdominal pain specially lower quadrant but currently generalized patient denies fever or chills at the ER CT scan was done was negative for acute finding other than hydrops of gallbladder patient had mild leukocytosis hyponatremia elevated LFT ultrasound shows mildly distended gallbladder common bile duct 7 mm GI was consulted hepatotoxic medication was held urine drug screen was positive for benzo amphetamine cannabinoid opiate LFT is trending down leukocytosis resolved GI recommend
--- NOTE | 2021-11-21 14:37 | WPDGIPROGNO ---
Progress Note: A&P Assessment and Plan (1) Biliary colic: Code(s): K80.50 - Calculus of bile duct without cholangitis or cholecystitis without obstruction Status: Acute Assessment and Plan: probably diagnoses, liver enzymes coming down but she is still uncomfortable surgery on board pending hida scan ercp in this hospital is not an option because she had bariatric surgery (2) Nausea and vomiting in adult: Code(s): R11.2 - Nausea with vomiting, unspecified Status: Acute Assessment and Plan: improved (3) RUQ pain: Onset Date: Unknown Code(s): R10.11 - Right upper quadrant pain Status: Acute (4) Abnormal LFTs: Onset Date: ~10/2021 Code(s): R79.89 - Other specified abnormal findings of blood chemistry Status: Acute Assessment and Plan: slowly trending down Subjective Date/time seen: 11/21/21 14:37 Interval history: still with ruq pain Review of Systems Review of Systems: All systems reviewed & are unremarkable except as noted in HPI and below Exam Const: General: comfortable and no acute distress HENMT: General nose exam: Normal nares present Eyes: Sclera: sclerae normal Neck: Neck: supple Resp: Auscultation: clear to auscultation bilaterally Cardio: Rate: regular rate GI: GI Palp: Yes Soft to palpation and Yes Tenderness to palpation present (GI) (mild ttp in ruq, no rebound) Auscultation: normal bowel sounds Skin: General skin exam: no rashes or lesions noted Neuro: Speech: normal speech Motor exam (neuro): Normal motor muscle tone present throughout Extrem: General: normal to inspection Objective Data Vital Signs Vital Signs: Vital Signs - 24 hr 11/20/21 20:00 11/20/21 22:00 11/21/21 00:00 Temperature 98.5 F Pulse Rate 93 99 109 H Respiratory Rate 18 18 Blood Pressure 153/80 H Pulse Oximetry 99 99 11/21/21 04:00 11/21/21 06:00 11/21/21 08:00 Temperature 97.9 F Pulse Rate 97 93 92 Respiratory Rate 18 Blood Pressure 149/87 H Pulse Oximetry 99 11/21/21 12:00 11/21/21 13:48 Temperature 97.9 F Pulse Rate 90 85 Respiratory Rate 16 Blood Pressure 163/69 H Pulse Oximetry 95 Intake/Output Intake/Output: Intake & Output 11/18/21 11/19/21 11/20/21 11/21/21 23:59 23:59 23:59 23:59 Intake Total 3320 5030 3470 1500 Output Total 1000 Balance 3320 4030 3470 1500 Meds/Results Medications: Active Medications Generic Name Dose Route Start Last Admin Trade Name Freq PRN Reason Stop Dose Admin Al Hydrox/Mg Hydrox/Simethicone 30 ml 11/17/21 09:15 Mag Hydrox/Al Hydrox/Simeth 30 Ml Udc PO QID PRN Dyspepsia Amitriptyline HCl 10 mg 11/17/21 21:00 11/21/21 12:29 Amitriptyline Hcl 10 Mg Tablet BY MOUTH Not Given HS MABEL Amlodipine Besylate 10 mg 11/17/21 09:00 11/21/21 10:16 Amlodipine Besylate 5 Mg Tablet PO Not Given DAILY MABEL Bisacodyl 5 mg 11/17/21 09:15 Bisacodyl 5 Mg Tablet Ec PO DAILY PRN Constipation Cyanocobalamin 1,000 mcg 11/17/21 09:00 11/21/21 10:17 Cyanocobalamin 1,000 Mcg Tablet PO Not Given DAILY MABEL Duloxetine HCl 30 mg 11/17/21 09:00 11/21/21 10:17 Duloxetine Hcl 30 Mg Capsule.Dr PO Not Given DAILY MABEL Ergocalciferol 50,000 unit 11/18/21 09:00 11/18/21 08:40 Ergocalciferol 50,000 Unit Capsule BY MOUTH 50,000 unit Fr@0900 MABEL Administration Famotidine 40 mg 11/17/21 09:00 11/21/21 12:34 Famotidine 20 Mg Tablet PO Not Given Q12HR MABEL Folic Acid 1 mg 11/17/21 09:00 11/21/21 10:17 Folic Acid 1 Mg Tablet PO Not Given QAM MABEL Gabapentin 600 mg 11/17/21 09:00 11/21/21 10:17 Gabapentin 300 Mg Capsule PO Not Given BID MABEL Heparin Sodium (Porcine) 5,000 units 11/17/21 09:00 11/21/21 12:34 Heparin Sodium 5,000 Units/Ml Vial SUB-Q Not Given Q12HR MABEL Hydralazine HCl 10 mg 11/17/21 09:07 Hydralazine Hcl 20 Mg/Ml Vial IV P
[2021-11-21] MEDS: GABAPENTIN 300 MG CAPSULE 600 MG PO (17:31)
[2021-11-21] MEDS: ZOLPIDEM TARTRATE (*CRX) 5 MG TABLET 10 MG PO (21:16)
[2021-11-21] MEDS: FAMOTIDINE 20 MG TABLET 40 MG PO (21:20)
[2021-11-21] MEDS: AMITRIPTYLINE HCL 10 MG TABLET BY MOUTH (21:20)
[2021-11-21] MEDS: HEPARIN SODIUM 5,000 UNITS/ML VIAL 5000 UNITS SUB-Q (21:21)
[2021-11-21] MEDS: rOPINIRole HCL 1 MG TABLET 2 MG PO (21:22)
--- NOTE | 2021-11-21 21:22 | PM.PNGS ---
Progress Note: A&P Assessment and Plan (1) RUQ pain: Onset Date: Unknown Code(s): R10.11 - Right upper quadrant pain Status: Acute Assessment and Plan: This is been on off for the patient for several years. Becoming more frequent recently. She had mild elevation of her lipase in July of this year when previously checked. Also mild elevation into the 300s on admission this visit. One wonders if she has very fine gallbladder sludge that occasionally comes out obstructs her common duct briefly and then is able to pass through. At this time her liver functions are improving. However, her pain is continuing. Since her gallbladder is enlarged on ultrasound there is a small chance we could be missing of very small stone or obstructed duct. Therefore I agree with proceeding to a HIDA scan with ejection fraction if the gallbladder fills. See note below under additional plan. (2) Abnormal LFTs: Onset Date: ~10/2021 Code(s): R79.89 - Other specified abnormal findings of blood chemistry Status: Acute Assessment and Plan: These are actually gradually improving at this time repeat studies ordered for tomorrow. I had a lipase to be sure that her pancreatitis has cleared. So far all hepatitis screening is negative. She is on a significant number of medications. Side effects of the medication would be another possibility for arise in these. (3) Nausea vomiting and diarrhea: Onset Date: ~11/2021 Code(s): R11.2 - Nausea with vomiting, unspecified; R19.7 - Diarrhea, unspecified Status: Acute Assessment and Plan: This worsened over the last few days prior to her admission. This is now improved with treatment. She states she has not had a stool for 2 days. (4) Chronic pain syndrome: Code(s): G89.4 - Chronic pain syndrome Status: Acute Assessment and Plan: Continue working outpatient physician pain management MD for this Additional Plan 1. I discussed the normal HIDA scan results with patient and her mother who was present at the time of my visit and did not recommend cholecystectomy at this time. We now 3 studies showing no problem with the gallbladder. 2. Since she has rheumatoid arthritis another possibility is she has some element of costochondritis along the lower rib cage (definite tenderness RT > Lt. to palpation in that area tonight), which may be giving her the pain that is right at her lower right rib cage and radiating around to the right. This may be part of the rheumatoid arthritis spectrum of problems. 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 3. Also discussed with the patient and her mother who was present in the room that should she continue having problems with the abdomimal symptoms that I recommend that now that she has Medicare she could see Dr. Johnathan Daley who is the Foregut surgeon and GI surgeon at [place] who did her gastric bypass in 2007. Since she can consult with him now, he would be another route to get a 2nd opinion regarding her current pain and whether not he would recommend gallbladder removal. She is thinking about this idea. 4. liver function tests were even closer to normal on 11/20 and if she is going to stay off the methotrexate and hydroxychloroquine, one could consider giving her Actigall for 1 month & then repeating liver function tests to be sure they do not go up with it. This way if there is very fine sludge which has been giving her the curren symptoms that she came in with we may be taking a chance or helping keep them in solution and avoid further problems. Will leave this up to the medicine service to decide about at discharge. 5. I had a thorough discussion with
[2021-11-22] VITALS (9 sets, daily range): BP systolic 134–159; BP diastolic 66–83; PULSE 66–94; RESP 18; TEMP 36.1–36.6; O2SAT 94–98
[2021-11-22] MEDS: TIZANIDINE HCL 4 MG TABLET BY MOUTH ×2 (00:15→10:23)
[2021-11-22] MEDS: metroNIDAZOLE 500 MG/ISO 100ML 500 MG/100 ML BAG 100 MG IVPB ×3 (05:06→20:38)
[2021-11-22 06:44] LABS: Alanine Aminotransferase 188 U/L (6-35); Albumin Level 3.2 g/dL (3.5-5.1); Alkaline Phosphatase 136 U/L (38-126); Anion Gap 5 mmol/L (8-16); Aspartate Amino Transferase 57 U/L (14-36); Bilirubin,Total 0.5 mg/dL (0.2-1.3); Calcium 7.8 mg/dL (8.4-10.2); Carbon Dioxide 30 mmol/L (22-30); Chloride 103 mmol/L (98-107); Estimated CRCL calculation 124 ml/min; Estimated Glomerular Filt Rate > 60; Glucose 127 mg/dL (65-110); Potassium 3.7 mmol/L (3.4-5.0); Sodium 138 mmol/L (137-145)
[2021-11-22 07:03] LABS: Blood Urea Nitrogen < 2 mg/dL (7-17)
[2021-11-22] MEDS: LORazepam (*CRX) 0.5 MG TABLET PO ×2 (09:00→16:34)
[2021-11-22] MEDS: oxyCODONE HCL (*CRX) 5 MG TAB IR PO (10:22)
[2021-11-22] MEDS: amLODIPine BESYLATE 5 MG TABLET 10 MG PO (10:23)
[2021-11-22] MEDS: HEPARIN SODIUM 5,000 UNITS/ML VIAL 5000 UNITS SUB-Q ×2 (10:23→20:34)
[2021-11-22] MEDS: MULTIVITAMINS THERAPEUTIC TAB (*BKC) 1 TABLET PO (10:23)
[2021-11-22] MEDS: GABAPENTIN 300 MG CAPSULE 600 MG PO ×2 (10:23→16:22)
[2021-11-22] MEDS: DULoxetine HCL 30 MG CAPSULE.DR PO (10:23)
[2021-11-22] MEDS: FOLIC ACID 1 MG TABLET PO (10:24)
[2021-11-22] MEDS: FAMOTIDINE 20 MG TABLET 40 MG PO ×2 (10:24→20:34)
[2021-11-22] MEDS: CYANOCOBALAMIN 1,000 MCG TABLET 1000 MCG PO (10:24)
--- NOTE | 2021-11-22 11:51 | WPDGIPROGNO ---
Progress Note: A&P Assessment and Plan (1) Biliary colic: Code(s): K80.50 - Calculus of bile duct without cholangitis or cholecystitis without obstruction Status: Acute Assessment and Plan: probably diagnosis but also she has chronic pain syndrome and previous bariatric surgery, liver enzymes coming down but she is still uncomfortable hida scan was normal agree with surgery for patient to follow-up with her bariatric surgery to discuss about potential cholecystectomy later on ercp in this hospital is not an option because she had bariatric surgery advance diet to low fat (2) Nausea and vomiting in adult: Code(s): R11.2 - Nausea with vomiting, unspecified Status: Acute Assessment and Plan: antiemetics prn (3) RUQ pain: Onset Date: Unknown Code(s): R10.11 - Right upper quadrant pain Status: Acute (4) Abnormal LFTs: Onset Date: ~10/2021 Code(s): R79.89 - Other specified abnormal findings of blood chemistry Status: Acute Assessment and Plan: slowly trending down Subjective Date/time seen: 11/22/21 11:51 Interval history: still pain and nauseous, asking for her narcotics Review of Systems Review of Systems: All systems reviewed & are unremarkable except as noted in HPI and below Exam Const: General: comfortable and no acute distress HENMT: General nose exam: Normal nares present Eyes: Sclera: sclerae normal Neck: Neck: supple Resp: Auscultation: clear to auscultation bilaterally Cardio: Rate: regular rate GI: GI Palp: Yes Soft to palpation and Yes Tenderness to palpation present (GI) (mild ttp, no rebound) Auscultation: normal bowel sounds Skin: General skin exam: no rashes or lesions noted Neuro: Speech: normal speech Motor exam (neuro): Normal motor muscle tone present throughout Extrem: General: normal to inspection Objective Data Vital Signs Vital Signs: Vital Signs - 24 hr 11/21/21 12:00 11/21/21 13:48 11/21/21 16:00 Temperature 97.9 F Pulse Rate 90 85 90 Respiratory Rate 16 Blood Pressure 163/69 H Pulse Oximetry 95 11/21/21 20:00 11/21/21 22:00 11/22/21 00:00 Temperature 96.9 F L Pulse Rate 97 97 94 Respiratory Rate 18 18 Blood Pressure 159/84 H Pulse Oximetry 100 100 11/22/21 04:00 11/22/21 05:12 Temperature 97.8 F Pulse Rate 94 94 Respiratory Rate 18 Blood Pressure 159/83 H Pulse Oximetry 98 Intake/Output Intake/Output: Intake & Output 11/19/21 11/20/21 11/21/21 11/22/21 23:59 23:59 23:59 23:59 Intake Total 5030 3470 2800 450 Output Total 1000 Balance 4030 3470 2800 450 Meds/Results Medications: Active Medications Generic Name Dose Route Start Last Admin Trade Name Freq PRN Reason Stop Dose Admin Al Hydrox/Mg Hydrox/Simethicone 30 ml 11/17/21 09:15 Mag Hydrox/Al Hydrox/Simeth 30 Ml Udc PO QID PRN Dyspepsia Amitriptyline HCl 10 mg 11/17/21 21:00 11/21/21 21:20 Amitriptyline Hcl 10 Mg Tablet BY MOUTH 10 mg HS MABEL Administration Amlodipine Besylate 10 mg 11/17/21 09:00 11/22/21 10:23 Amlodipine Besylate 5 Mg Tablet PO 10 mg DAILY MABEL Administration Bisacodyl 5 mg 11/17/21 09:15 Bisacodyl 5 Mg Tablet Ec PO DAILY PRN Constipation Cyanocobalamin 1,000 mcg 11/17/21 09:00 11/22/21 10:24 Cyanocobalamin 1,000 Mcg Tablet PO 1,000 mcg DAILY MABEL Administration Duloxetine HCl 30 mg 11/17/21 09:00 11/22/21 10:23 Duloxetine Hcl 30 Mg Capsule.Dr PO 30 mg DAILY MABEL Administration Ergocalciferol 50,000 unit 11/18/21 09:00 11/18/21 08:40 Ergocalciferol 50,000 Unit Capsule BY MOUTH 50,000 unit Fr@0900 MABEL Administration Famotidine 40 mg 11/17/21 09:00 11/22/21 10:24 Famotidine 20 Mg Tablet PO 40 mg Q12HR MABEL Administration Folic Acid 1 mg 11/17/21 09:00 11/22/21 10:24 Folic Acid 1 Mg Tablet PO 1 mg QAM MABEL Administration Gabapentin 600 mg 11/17/21
[2021-11-22] MEDS: HYDROmorphone HCL INJ (*CRX) 1 MG/ML SYR 0.5 MG IV PUSH ×2 (15:43→21:20)
--- NOTE | 2021-11-22 17:00 | PM.IMPN ---
Progress Note: A&P Assessment and Plan (1) Rheumatoid arthritis: Code(s): M06.9 - Rheumatoid arthritis, unspecified Status: Acute Assessment and Plan: Patient on hydrochloroquine and methotrexate probably resume as outpatient vianey liver function improved Unlikely abnormal LFT related to medication most likely related to bile duct obstruction resolved spontaneously No evidence of active rheumatoid arthritis Hold Plaquenil and methotrexate LFT improving will resume once okay with GI probably as outpatient (2) Chronic pain syndrome: Code(s): G89.4 - Chronic pain syndrome Status: Acute Assessment and Plan: Counseling pain medication ordered discussed with the nurse (3) Acute hypokalemia: Code(s): E87.6 - Hypokalemia Status: Acute Assessment and Plan: Replaced (4) Hypertension: Code(s): I10 - Essential (primary) hypertension Status: Acute Assessment and Plan: Uncontrolled resume amlodipine started p.r.n. hydralazine (5) Neuropathy: Code(s): G62.9 - Polyneuropathy, unspecified Status: Acute Assessment and Plan: Hold gabapentin as patient has acute liver failure (6) Hyperparathyroidism: Onset Date: ~2019 Code(s): E21.3 - Hyperparathyroidism, unspecified Status: Acute Assessment and Plan: Patient follows up with ENT as outpatient Monitor calcium level (7) Nausea vomiting and diarrhea: Onset Date: ~11/2021 Code(s): R11.2 - Nausea with vomiting, unspecified; R19.7 - Diarrhea, unspecified Status: Acute Assessment and Plan: Probable gastroenteritis rule out acute viral hepatitis rule out methotrexate toxicity probably related to acute hepatitis Pending GI evaluation Concern for obstructive jaundice spontaneously resolved Dilated bile duct probably patient has choledocholithiasis with spontaneous passage of the stone (8) Abnormal LFTs: Onset Date: ~10/2021 Code(s): R79.89 - Other specified abnormal findings of blood chemistry Status: Acute Assessment and Plan: Acute hepatic failure most likely related to obstructive jaundice most likely related to spontaneously passed gallstone Daily LFT daily INR GI consult Reviewed ultrasound of the abdomen showed mildly dilated gallbladder and common bile duct [address] scan of the abdomen Acute hepatitis panel negative pending hepatitis E follow lamotrigine level Ferritin level is more than 2000 most likely acute phase reactant Hold gabapentin lamotrigine hydrochloroquine and methotrexate Alcohol level and Tylenol level acute hep panel ivf Blood culture positive start IV antibiotic probably contaminant repeat blood culture Concern for cholecystitis surgery was consulted Pending HIDA scan possible plan for cholecystectomy Not candidate for MRCP due to spinal cord pain stimulator (9) DVT prophylaxis: Code(s): Z29.9 - Encounter for prophylactic measures, unspecified Status: Acute Assessment and Plan: heparin Subjective Date/time seen: 11/22/21 17:00 11/22/2021 interval history: morbidly obese status post bariatric surgery presented with colic and elevated liver enzymes abdominal ultrasound showed Persistent mild distention of the gallbladder and common bile duct of unclear etiology. 2. Diffuse hepatic steatosis. to further evaluate patient had HIDA scan which is normal however patient continued to have epigastric pain seen by GI suspect most likely secondary to previous bariatric surgery and patient cannot have ERCP in this hospital, patient is seen by surgery service and further recommendation to follow will continue to monitor. Review of Systems Review of Systems: All systems reviewed & are unremarkable except as noted in HPI and below Exam Narrative: morbidly obese Patient is comfortable, NAD HEENT: eyes are clear and none icteric LUNGS: normal respiratory effort HEART: RR S1S
[2021-11-22] MEDS: ONDANSETRON INJ 4 MG/2 ML VIAL IV PUSH (18:23)
[2021-11-22] MEDS: rOPINIRole HCL 1 MG TABLET 2 MG PO (20:33)
[2021-11-22] MEDS: AMITRIPTYLINE HCL 10 MG TABLET BY MOUTH (20:33)
[2021-11-22] MEDS: ZOLPIDEM TARTRATE (*CRX) 5 MG TABLET 10 MG PO (20:35)
[2021-11-22] MEDS: SODIUM CHLORIDE 0.9% IV 1,000 ML 100 ML IV CONT (21:46)
[2021-11-23] VITALS: PULSE 94
[2021-11-23] MEDS: HYDROmorphone HCL INJ (*CRX) 1 MG/ML SYR 0.5 MG IV PUSH ×3 (01:21→09:54)
[2021-11-23] MEDS: TIZANIDINE HCL 4 MG TABLET BY MOUTH (01:24)
[2021-11-23 04:00] VITALS: PULSE 94
[2021-11-23 06:37] LABS: Hematocrit 36.1 % (37.0-47.0); Mean Corpuscular HGB Conc 30.5 g/dl (32-36); Mean Corpuscular Hemoglobin 28.6 pg (26-34); Platelet Count Result 150 k/mm3 (150-375); Red Blood Count 3.84 M/mm3 (4.2-5.4); White Blood Count 4.7 K/mm3 (4.5-10.0)
[2021-11-23 06:40] LABS: Alanine Aminotransferase 141 U/L (6-35); Alkaline Phosphatase 123 U/L (38-126); Anion Gap 2 mmol/L (8-16); Aspartate Amino Transferase 41 U/L (14-36); Bilirubin,Total 0.2 mg/dL (0.2-1.3); Calcium 7.9 mg/dL (8.4-10.2); Carbon Dioxide 30 mmol/L (22-30); Chloride 105 mmol/L (98-107); Estimated CRCL calculation 108 ml/min; Estimated Glomerular Filt Rate > 60; Glucose 99 mg/dL (65-110); Potassium 3.2 mmol/L (3.4-5.0); Sodium 137 mmol/L (137-145)
[2021-11-23] MEDS: metroNIDAZOLE 500 MG/ISO 100ML 500 MG/100 ML BAG 100 MG IVPB ×2 (06:57→15:11)
[2021-11-23 07:13] LABS: Blood Urea Nitrogen < 2 mg/dL (7-17)
[2021-11-23 08:00] VITALS: PULSE 94; RESP 18; O2SAT 96
[2021-11-23] MEDS: LORazepam (*CRX) 0.5 MG TABLET PO (09:08)
[2021-11-23] MEDS: FOLIC ACID 1 MG TABLET PO (09:50)
[2021-11-23] MEDS: DULoxetine HCL 30 MG CAPSULE.DR PO (09:50)
[2021-11-23] MEDS: HEPARIN SODIUM 5,000 UNITS/ML VIAL 5000 UNITS SUB-Q (09:50)
[2021-11-23] MEDS: amLODIPine BESYLATE 5 MG TABLET 10 MG PO (09:50)
[2021-11-23] MEDS: FAMOTIDINE 20 MG TABLET 40 MG PO (09:50)
[2021-11-23] MEDS: MULTIVITAMINS THERAPEUTIC TAB (*BKC) 1 TABLET PO (09:50)
[2021-11-23] MEDS: GABAPENTIN 300 MG CAPSULE 600 MG PO (09:50)
[2021-11-23] MEDS: CYANOCOBALAMIN 1,000 MCG TABLET 1000 MCG PO (09:50)
[2021-11-23] MEDS: modafiniL (*CRX) 200 MG TABLET PO (09:53)
--- NOTE | 2021-11-23 11:29 | PM.DS ---
DS: Admitting Diagnosis Discharge Date 11/23/2021 Admitting Diagnosis Accidental overdose DS: Discharge Diagnosis Discharge Diagnosis (1) Biliary colic: Code(s): K80.50 - Calculus of bile duct without cholangitis or cholecystitis without obstruction Status: Acute (2) Rheumatoid arthritis: Code(s): M06.9 - Rheumatoid arthritis, unspecified Status: Acute Assessment and Plan: Patient on hydrochloroquine and methotrexate probably resume as outpatient vianey liver function improved Unlikely abnormal LFT related to medication most likely related to bile duct obstruction resolved spontaneously No evidence of active rheumatoid arthritis Hold Plaquenil and methotrexate LFT improving will resume once okay with GI probably as outpatient (3) Chronic pain syndrome: Code(s): G89.4 - Chronic pain syndrome Status: Acute Assessment and Plan: Counseling pain medication ordered discussed with the nurse (4) Acute hypokalemia: Code(s): E87.6 - Hypokalemia Status: Acute Assessment and Plan: Replaced (5) Hypertension: Code(s): I10 - Essential (primary) hypertension Status: Acute Assessment and Plan: Uncontrolled resume amlodipine started p.r.n. hydralazine (6) Neuropathy: Code(s): G62.9 - Polyneuropathy, unspecified Status: Acute Assessment and Plan: Hold gabapentin as patient has acute liver failure (7) Hyperparathyroidism: Onset Date: ~2019 Code(s): E21.3 - Hyperparathyroidism, unspecified Status: Acute Assessment and Plan: Patient follows up with ENT as outpatient Monitor calcium level (8) Nausea vomiting and diarrhea: Onset Date: ~11/2021 Code(s): R11.2 - Nausea with vomiting, unspecified; R19.7 - Diarrhea, unspecified Status: Acute Assessment and Plan: Probable gastroenteritis rule out acute viral hepatitis rule out methotrexate toxicity probably related to acute hepatitis Pending GI evaluation Concern for obstructive jaundice spontaneously resolved Dilated bile duct probably patient has choledocholithiasis with spontaneous passage of the stone (9) Abnormal LFTs: Onset Date: ~10/2021 Code(s): R79.89 - Other specified abnormal findings of blood chemistry Status: Acute Assessment and Plan: Acute hepatic failure most likely related to obstructive jaundice most likely related to spontaneously passed gallstone Daily LFT daily INR GI consult Reviewed ultrasound of the abdomen showed mildly dilated gallbladder and common bile duct [address] scan of the abdomen Acute hepatitis panel negative pending hepatitis E follow lamotrigine level Ferritin level is more than 2000 most likely acute phase reactant Hold gabapentin lamotrigine hydrochloroquine and methotrexate Alcohol level and Tylenol level acute hep panel ivf Blood culture positive start IV antibiotic probably contaminant repeat blood culture Concern for cholecystitis surgery was consulted Pending HIDA scan possible plan for cholecystectomy Not candidate for MRCP due to spinal cord pain stimulator (10) DVT prophylaxis: Code(s): Z29.9 - Encounter for prophylactic measures, unspecified Status: Acute Assessment and Plan: heparin DS: Summary Hospital Course Reason for hospitalization: Chief Complaint: Accidental overdose Narrative: Ms. Manrique is a 51-year-old female who presented emergency room after taking 8 of her 10 mg amlodipine. Patient states she thought she was taking her chewable lamotrigine, which she normally takes 8 of that once. Patient states she typically does not to her lamotrigine even though she is supposed to; she typically swallows the pills whole. Patient states that she typically has after taste when taking her lamotrigine, and when she takes the amlodipine she noticed there is no after taste and she lives at the bottle and realized what she had done. P
[2021-11-23] MEDS: ONDANSETRON INJ 4 MG/2 ML VIAL IV PUSH (13:08)
[2021-11-23] MEDS: oxyCODONE HCL (*CRX) 5 MG TAB IR PO (13:21)
[2021-11-23 14:00] VITALS: BP 110/70; PULSE 70; RESP 20; TEMP 35.9; O2SAT 97
--- NOTE | 2021-11-23 14:34 | WPDGIPROGNO ---
Progress Note: A&P Assessment and Plan (1) Biliary colic: Code(s): K80.50 - Calculus of bile duct without cholangitis or cholecystitis without obstruction Status: Acute Assessment and Plan: probably diagnosis but also chronic pain syndrome and previous bariatric surgery, liver enzymes coming down hida scan was normal agree with surgery for patient to follow-up with her bariatric surgery to discuss about potential cholecystectomy later on ercp in this hospital is not an option because she had bariatric surgery advance diet to low fat home today (2) Nausea and vomiting in adult: Code(s): R11.2 - Nausea with vomiting, unspecified Status: Acute Assessment and Plan: antiemetics prn and better (3) RUQ pain: Onset Date: Unknown Code(s): R10.11 - Right upper quadrant pain Status: Acute (4) Abnormal LFTs: Onset Date: ~10/2021 Code(s): R79.89 - Other specified abnormal findings of blood chemistry Status: Acute Assessment and Plan: slowly trending down Subjective Date/time seen: 11/23/21 14:34 Interval history: pain is better and she is eating more Review of Systems Review of Systems: All systems reviewed & are unremarkable except as noted in HPI and below Exam Const: General: comfortable and no acute distress HENMT: General nose exam: Normal nares present Eyes: Sclera: sclerae normal Neck: Neck: supple Resp: Auscultation: clear to auscultation bilaterally Cardio: Rate: regular rate GI: GI Palp: Yes Soft to palpation and Yes Tenderness to palpation present (GI) (mild ttp, no rebound) Auscultation: normal bowel sounds Skin: General skin exam: no rashes or lesions noted Neuro: Speech: normal speech Motor exam (neuro): Normal motor muscle tone present throughout Extrem: General: normal to inspection Objective Data Vital Signs Vital Signs: Vital Signs - 24 hr 11/22/21 16:00 11/22/21 20:00 11/22/21 22:00 Temperature 97.6 F Pulse Rate 90 80 80 Respiratory Rate 18 18 Blood Pressure 134/66 Pulse Oximetry 96 96 11/23/21 00:00 11/23/21 04:00 11/23/21 08:00 Temperature Pulse Rate 94 94 94 Respiratory Rate 18 Blood Pressure Pulse Oximetry 96 Intake/Output Intake/Output: Intake & Output 05/08/22 11/21/21 11/22/21 11/23/21 23:59 23:59 23:59 23:59 Intake Total 3470 2850 3100 50 Balance 3470 2850 3100 50 Meds/Results Medications: Active Medications Generic Name Dose Route Start Last Admin Trade Name Freq PRN Reason Stop Dose Admin Al Hydrox/Mg Hydrox/Simethicone 30 ml 11/17/21 09:15 Mag Hydrox/Al Hydrox/Simeth 30 Ml Udc PO QID PRN Dyspepsia Amitriptyline HCl 10 mg 11/17/21 21:00 11/22/21 20:33 Amitriptyline Hcl 10 Mg Tablet BY MOUTH 10 mg HS MABEL Administration Amlodipine Besylate 10 mg 11/17/21 09:00 11/23/21 09:50 Amlodipine Besylate 5 Mg Tablet PO 10 mg DAILY MABEL Administration Bisacodyl 5 mg 11/17/21 09:15 Bisacodyl 5 Mg Tablet Ec PO DAILY PRN Constipation Cyanocobalamin 1,000 mcg 11/17/21 09:00 11/23/21 09:50 Cyanocobalamin 1,000 Mcg Tablet PO 1,000 mcg DAILY MABEL Administration Duloxetine HCl 30 mg 11/17/21 09:00 11/23/21 09:50 Duloxetine Hcl 30 Mg Capsule.Dr PO 30 mg DAILY MABEL Administration Ergocalciferol 50,000 unit 11/18/21 09:00 11/18/21 08:40 Ergocalciferol 50,000 Unit Capsule BY MOUTH 50,000 unit Fr@0900 MABEL Administration Famotidine 40 mg 11/17/21 09:00 11/23/21 09:50 Famotidine 20 Mg Tablet PO 40 mg Q12HR MABEL Administration Folic Acid 1 mg 11/17/21 09:00 11/23/21 09:50 Folic Acid 1 Mg Tablet PO 1 mg QAM MABEL Administration Gabapentin 600 mg 11/17/21 09:00 11/23/21 09:50 Gabapentin 300 Mg Capsule PO 600 mg BID MABEL Administration Heparin Sodium (Porcine) 5,000 units 11/17/21 09:00 11/23/21 09:50 Heparin Sodium 5,000 Units/Ml Vial SUB-Q 5,000
[2021-11-24 09:01] LABS: Hepatitis E Antibodies IgG Not Detected
== END 2021-11-23 17:42 | disposition home or self-care (01) | DRG 445 ==
LOC: ANHED 22:05 → ANH3MEDSUR 11-17 07:45
PROVIDERS: Emergency Medicine; Internal Medicine; Surgery; Admitting Provider Internal Medicine; Emergency Provider Family Medicine; Visit Provider Family Medicine
DX: K80.50 Calculus of bile duct without cholangitis or cholecystitis without obstruction (principal); K82.1 Hydrops of gallbladder; E87.1 Hypo-osmolality and hyponatremia; Z68.41 Body mass index [BMI] 40.0-44.9, adult; I10 Essential (primary) hypertension; F41.9 Anxiety disorder, unspecified; M06.9 Rheumatoid arthritis, unspecified; K76.0 Fatty (change of) liver, not elsewhere classified; D50.0 Iron deficiency anemia secondary to blood loss (chronic); E66.9 Obesity, unspecified; G89.4 Chronic pain syndrome; E21.3 Hyperparathyroidism, unspecified; G62.9 Polyneuropathy, unspecified; E87.6 Hypokalemia; Z98.84 Bariatric surgery status; Z98.1 Arthrodesis status; Z96.82 Presence of neurostimulator; Z20.822 Contact with and (suspected) exposure to COVID-19
CPT/HCPCS: 36415; 74176; 76705; 78227; 80053; 80074; 80175; 80307; 81001; 81003; 82140; 82274; 82306; 82550; 82607; 82728; 82746; 83540; 83550; 83605; 83690; 83735; 84100; 84145; 84443; 84550; 85025; 85027; 85610; 86140; 86790; 87040; 87077; 96361; 96365; 96366; 96367; 96372; 96374; 96375; 96376; 99285; A9270; A9537; C9803; G0378; J0696; J1170; J1200; J1335; J1644; J2405; J2805; J3010; J7030; U0003; U0005

== ENCOUNTER 2022-02-15 06:35 | Emergency (ER) | payer MEDICARE, MEDICAID, SELFPAY ==
--- NOTE | ~2022-02-15 | CT_ITS ---
EXAMINATION: CT soft tissue neck wo con DATE: 02/15/2022 08:20 INDICATION: Right jaw pain. TECHNIQUE: Computed tomography (CT) of the neck was performed without intravenous contrast. Automated exposure control and iterative reconstruction technique were employed. The dose-length product was 5 85.00 mGy-cm. COMPARISON: None FINDINGS: There are no pathologically enlarged lymph nodes. There is fat stranding in right face cent ered around the parotid gland. No sialolith. There is mild mucosal thickening in left maxillary sinus . The mastoid air cells are normal. There are changes of anterior and posterior fusion procedures at C5-C6. Epidural electrodes are noted. IMPRESSION: 1. Right-sided parotiditis. Reviewed, dictated and finalized at location A. IMPRESSION: 1. Right-sided parotiditis.
[2022-02-15 06:46] VITALS: BP 156/101; PULSE 97; RESP 20; TEMP 36.2; O2SAT 97
--- NOTE | 2022-02-15 07:19 | ECG_ITS ---
Measurements Intervals [place] Rate: 84 P: 38 SD: 146 QRS: 1 QRSD: 95 T: 9 QT: 404 QTc: 480 Interpretive Statements SINUS RHYTHM CANNOT RULE OUT INFERIOR MYOCARDIAL INFARCTION , PROBABLY OLD ABNORMAL ECG COMPARED TO ECG 10/23/2021 08:45:51 HEART RATE HAS DECREASED Electronically Signed On 02-15-2022 12:42:45 CDT by Rafy Ott M.D.
[2022-02-15] MEDS: MORPHINE SULFATE (*CRX) 4 MG/ML INJ IV PUSH (07:44)
[2022-02-15] MEDS: SODIUM CHLORIDE 0.9% IV 1,000 ML 999 ML IV CONT (07:45)
[2022-02-15 07:46] LABS: Basophils Absolute Auto 0.1 K/mm3 (0.0-0.1); Basophils Percent Auto 0.6 % (0.2-1.2); Eosinophils Absolute Auto 0.3 K/mm3 (0-0.3); Eosinophils Percent Auto 3.4 % (0-4.4); Hematocrit 44.4 % (37.0-47.0); Hemoglobin 14.3 g/dL (12.0-15.0); Immature Granulocyte Absolute 0.02 K/mm3 (0.00-0.031); Immature Granulocyte Percent A 0.2 % (0-0.5); Lymphocytes Absolute Auto 2.16 K/mm3 (0.9-3.2); Lymphocytes Percent Auto 23.8 % (18.3-44.2); Mean Corpuscular HGB Conc 32.2 g/dl (32-36); Mean Corpuscular Hemoglobin 28.1 pg (26-34); Mean Corpuscular Volume 87.4 fl (80-100); Mean Platelet Volume 9.2 fl (7.4-10.4); Monocytes Absolute Auto 0.6 K/mm3 (0.1-0.6); Neutrophils Absolute Auto 5.9 K/mm3 (1.3-6.7); Platelet Count Result 331 k/mm3 (150-375); Red Blood Count 5.08 M/mm3 (4.2-5.4); Red Cell Distribution Width 18.3 % (11.5-14.5); White Blood Count 9.1 K/mm3 (4.5-10.0)
--- NOTE | 2022-02-15 08:00 | ED.GENADULT ---
HPI - General Adult General Chief complaint: Neck Pain/Injury Stated complaint: R NECK PAIN/SWELLING Time Seen by Provider: 02/15/22 07:02 Source: RN notes reviewed History of Present Illness HPI narrative: Patient presents emergency department from home for right-sided jaw and neck pain. Patient states symptoms began 2 days ago. The pain is located diffusely throughout the right jaw and neck and radiates down the right neck and into the right ear. Patient states that the pain is described as aching in nature she denies any fevers or chills any rhinorrhea denies any sore throat or dental pain denies any chest pain shortness of breath abdominal pain nausea vomiting Related Data Home Medications Medication Instructions Recorded Confirmed amitriptyline 10 mg tablet 10 mg HS 08/04/21 11/17/21 amlodipine 10 mg tablet 10 mg PO DAILY ##0 08/04/21 11/17/21 cyanocobalamin (vitamin B-12) 1,000 mcg PO DAILY ##0 08/04/21 11/17/21 1,000 mcg tablet dextroamphetamine-amphetamine 20 20 mg PO DAILY 08/04/21 11/17/21 mg tablet (Adderall) duloxetine 30 mg capsule,delayed 30 mg PO DAILY 08/04/21 11/17/21 release ergocalciferol (vitamin D2) 1,250 50,000 unit WEEKLY 08/04/21 11/17/21 mcg (50,000 unit) capsule estradiol 1 mg tablet 1 mg PO DAILY 08/04/21 11/17/21 famotidine 40 mg tablet (Pepcid) 40 mg PO BID 08/04/21 11/17/21 gabapentin 300 mg tablet 600 mg PO BID 08/04/21 11/17/21 hydroxychloroquine 200 mg tablet 200 mg PO BID 08/04/21 11/17/21 hydroxyzine HCl 50 mg tablet 50 mg PO TID PRN Itching 08/04/21 11/17/21 lamotrigine 25 mg chewable 200 mg PO DAILY 08/04/21 11/17/21 dispersible tablet levomefolate calcium 15 mg tablet 15 mg PO DAILY 08/04/21 11/17/21 methotrexate sodium 2.5 mg tablet 20 mg PO WEEKLY ##0 08/04/21 11/17/21 modafinil 200 mg tablet 200 mg PO QAM 08/04/21 11/17/21 multivitamin 1 tablet PO DAILY ##0 08/04/21 11/17/21 oxycodone-acetaminophen 10 mg-325 1 tablet PO Q4H PRN Pain 08/04/21 11/17/21 mg tablet (Percocet) potassium chloride 20 mEq 20 meq PO BID PRN Edema ##0 08/04/21 11/17/21 tablet,extended release promethazine 25 mg rectal 25 mg RECTAL Q6H PRN Nausea ##0 08/04/21 11/17/21 suppository ropinirole 2 mg tablet 2 mg PO HS 08/04/21 11/17/21 tizanidine 4 mg tablet 4 mg TID PRN Pain 08/04/21 11/17/21 zolpidem 12.5 mg tablet,extended 12.5 mg PO HS 08/04/21 11/17/21 release,multiphase Allergies Allergy/AdvReac Type Severity Reaction Status Date / Time amoxicillin Allergy Unknown Rash Verified 11/16/21 18:27 meperidine Allergy Unknown Verified 11/16/21 18:27 Penicillins Allergy Unknown unknown Verified 11/16/21 18:27 prochlorperazine Allergy Unknown unknown Verified 11/16/21 18:27 Sulfa (Sulfonamide Allergy Unknown unknown Verified 11/16/21 18:27 Antibiotics) Review of Systems Review of Systems: Gen.: Denies fevers or chills Eyes: Denies eye pain or visual change ENT: See HPI Respiratory: Denies shortness of breath or cough CV: Denies chest pain GI: Denies abdominal pain nausea, emesis Musculoskeletal: Denies back pain or muscle pain Neuro: Denies numbness, tingling, weakness or focal weakness Skin: Denies rash Except as documented, all other systems reviewed and negative [facility] Past Medical History Medical History Anxiety Biliary colic Chronic pain syndrome Hyperparathyroidism (~2019) Hypertension Nausea and vomiting in adult Neuropathy Rheumatoid arteritis RUQ pain (Unknown) Surgical History Surgical History H/O parathyroidectomy H/O: hysterectomy S/P insertion of spinal cord stimulator Social History Social History Smoking status: Never smoker Alcohol intake: never Substance use: never Substance use type: does not use Spiritual care concerns: Yes Exam Narrative: APPEARANCE: Tearful in bed
[2022-02-15 08:06] LABS: Alanine Aminotransferase 84 U/L (6-35); Albumin Level 4.2 g/dL (3.5-5.1); Alkaline Phosphatase 193 U/L (38-126); Anion Gap 10 mmol/L (8-16); Aspartate Amino Transferase 104 U/L (14-36); Bilirubin,Total 1.2 mg/dL (0.2-1.3); Blood Urea Nitrogen 16 mg/dL (7-17); Calcium 8.3 mg/dL (8.4-10.2); Carbon Dioxide 24 mmol/L (22-30); Chloride 101 mmol/L (98-107); Estimated CRCL calculation 109 ml/min; Estimated Glomerular Filt Rate > 60; Glucose 121 mg/dL (65-110); Potassium 3.3 mmol/L (3.4-5.0); Sodium 135 mmol/L (137-145)
[2022-02-15] MEDS: KETOROLAC 30 MG/ML VIAL (*BKC) IV PUSH (09:23)
[2022-02-15] MEDS: CLINDAMYCIN 900 MG/D5W 50 ML 900 MG/50 ML PIGGYBACK 50 MG IVPB (09:24)
--- NOTE | 2022-02-15 09:25 | PC.NURSE ---
Pt reports swelling to her right side of her neck which she describes as fluid filled. She reports having similar symptoms before but was not sure of the diagnosis at that time.
[2022-02-15 09:29] VITALS: BP 175/85; PULSE 84; RESP 16; O2SAT 97
[2022-02-15 10:40] VITALS: BP 176/94; PULSE 96; RESP 18; O2SAT 96
== END 2022-02-15 11:00 | disposition home or self-care (01) ==
PROVIDERS: Emergency Provider Emergency Medicine; PCP Internal Medicine
DX: K11.21 Acute sialoadenitis (principal); F41.9 Anxiety disorder, unspecified; I10 Essential (primary) hypertension
CPT/HCPCS: 36415; 70490; 80053; 85025; 87081; 93005; 96361; 96365; 96375; 99284; J1885; J2270; J7030

== ENCOUNTER 2022-03-27 16:55 | Emergency (ER) | payer MEDICARE, MEDICAID, SELFPAY ==
--- NOTE | ~2022-03-27 | XR_ITS ---
EXAM: XR knee RT min 4V DATE: 03/27/2022 17:42 HISTORY: diffuse rt knee pain s/p fall yesterday . COMPARISON: None available. FINDINGS: Decreased mineralization. No fracture or dislocation. No lytic or blastic lesion. Mild tri compartmental osteoarthritic change. No erosion or periosteal change. Soft tissues within normal limi ts. Large volume right knee joint effusion. IMPRESSION: No acute osseous finding in the right knee. Large right knee effusion. Reviewed, dictated and finalized at location K. IMPRESSION: No acute osseous finding in the right knee. Large right knee effusi on.
--- NOTE | ~2022-03-27 | XR_ITS ---
EXAM: XR ankle LT min 3V DATE: 03/27/2022 17:42 HISTORY: Left lateral ankle pain s/p fall yesterday . COMPARISON: None available. FINDINGS: Normal mineralization. Large triangular lateral malleolus fracture fragment with somewhat sclerotic appearing margins, may represent acute or chronic injury. Chronic appearing medial and late ral malleolus avulsion fracture fragments. No lytic or blastic lesion. Plantar enthesopathy. Joint sp aces are maintained. No erosion or periosteal change. Lateral soft tissue swelling. IMPRESSION: Acute versus chronic lateral malleolar avulsion fracture fragment. Reviewed, dictated and finalized at location K.
[2022-03-27 17:15] VITALS: BP 128/74; PULSE 81; RESP 16; TEMP 36.9; O2SAT 99
--- NOTE | 2022-03-27 17:18 | ED.FALL ---
HPI - Fall General Chief Complaint: Fall Stated Complaint: Fall Left Ankle Twisted,Right Knee Pain Time Seen by Provider: 03/27/22 17:18 Source: patient and RN notes reviewed Mode of arrival: ambulatory Limitations: no limitations History of Present Illness HPI Narrative: 51-year-old female is brought in by her mom with complaints of left ankle and right knee pain. Patient states that she was walking and stepped in a hole when she rolled her left ankle and fell onto her knee. Has a history of chronic back pain, no new pain. Did not hit head. No loss of consciousness Patient states that she already takes Percocet and ibuprofen for her chronic pain Related Data Home Medications Medication Instructions Recorded Confirmed amitriptyline 10 mg tablet 10 mg HS 08/04/21 03/27/22 amlodipine 10 mg tablet 10 mg PO DAILY ##0 08/04/21 03/27/22 cyanocobalamin (vitamin B-12) 1,000 mcg PO DAILY ##0 08/04/21 03/27/22 1,000 mcg tablet dextroamphetamine-amphetamine 20 20 mg PO DAILY 08/04/21 03/27/22 mg tablet (Adderall) duloxetine 30 mg capsule,delayed 30 mg PO DAILY 08/04/21 03/27/22 release ergocalciferol (vitamin D2) 1,250 50,000 unit WEEKLY 08/04/21 03/27/22 mcg (50,000 unit) capsule estradiol 1 mg tablet 1 mg PO DAILY 08/04/21 03/27/22 famotidine 40 mg tablet (Pepcid) 40 mg PO BID 08/04/21 03/27/22 gabapentin 300 mg tablet 600 mg PO BID 08/04/21 03/27/22 hydroxychloroquine 200 mg tablet 200 mg PO BID 08/04/21 03/27/22 hydroxyzine HCl 50 mg tablet 50 mg PO TID PRN Itching 08/04/21 03/27/22 lamotrigine 25 mg chewable 200 mg PO DAILY 08/04/21 03/27/22 dispersible tablet levomefolate calcium 15 mg tablet 15 mg PO DAILY 08/04/21 03/27/22 methotrexate sodium 2.5 mg tablet 20 mg PO WEEKLY ##0 08/04/21 03/27/22 modafinil 200 mg tablet 200 mg PO QAM 08/04/21 03/27/22 multivitamin 1 tablet PO DAILY ##0 08/04/21 03/27/22 potassium chloride 20 mEq 20 meq PO BID PRN Edema ##0 08/04/21 03/27/22 tablet,extended release promethazine 25 mg rectal 25 mg RECTAL Q6H PRN Nausea ##0 08/04/21 03/27/22 suppository ropinirole 2 mg tablet 2 mg PO HS 08/04/21 03/27/22 tizanidine 4 mg tablet 4 mg TID PRN Pain 08/04/21 03/27/22 zolpidem 12.5 mg tablet,extended 12.5 mg PO HS 08/04/21 03/27/22 release,multiphase oxycodone-acetaminophen 10 mg-325 1 tablet PO Q6-8H PRN pain 03/27/22 03/27/22 mg tablet Allergies Allergy/AdvReac Type Severity Reaction Status Date / Time amoxicillin Allergy Unknown Rash Verified 03/27/22 17:02 meperidine Allergy Unknown Verified 03/27/22 17:02 Penicillins Allergy Unknown unknown Verified 03/27/22 17:02 prochlorperazine Allergy Unknown unknown Verified 03/27/22 17:02 Sulfa (Sulfonamide Allergy Unknown unknown Verified 03/27/22 17:02 Antibiotics) Review of Systems Review of Systems: All systems reviewed & are unremarkable except as noted in HPI and below Constitutional: Constitutional: Reports no additional constitutional complaints, Denies chills and Denies fever(s) Eyes: Eyes: Reports no additional eye complaints ENT: Reports system reviewed and no additional complaints, except as documented Cardiovascular: Cardiovascular: Reports no additional cardiovascular complaints Respiratory: Respiratory: Reports no additional respiratory complaints Gastrointestinal: Gastrointestinal: Reports no additional gastrointestinal complaints Musculoskeletal: Musculoskeletal: Reports as per HPI, Reports arthralgias and Reports joint swelling Integumentary/Breasts: Skin/Breast: Reports system reviewed and no additional complaints, except as docu Neurologic: Reports system reviewed and no additional complaints, except as documented Psychiatric: Psychiatric: Reports no additional psychiatric complaints Allergic/Immunologic: Allergic/Immunologic: Reports no additional allergic/immunologic complaints PMFSH Past Medical History Medical History Anxiety Román
== END 2022-03-27 19:17 | disposition home or self-care (01) ==
PROVIDERS: Emergency Provider Nurse Practitioner; PCP Internal Medicine
DX: S82.62XA Displaced fracture of lateral malleolus of left fibula, initial encounter for closed fracture (principal); W17.2XXA Fall into hole, initial encounter; M25.461 Effusion, right knee; E21.3 Hyperparathyroidism, unspecified; I10 Essential (primary) hypertension; M06.9 Rheumatoid arthritis, unspecified; Z90.89 Acquired absence of other organs; F41.9 Anxiety disorder, unspecified
CPT/HCPCS: 29515; 73564; 73610; 99214; G0463

== ENCOUNTER 2023-05-27 09:09 | Observation (INO) | payer MEDICARE, MEDICAID, SELFPAY ==
[2023-05-27] VITALS (13 sets, daily range): BP systolic 96–146; BP diastolic 65–98; PULSE 95–108; RESP 14–27; TEMP 36.5–36.9; O2SAT 96–100; BMI 45.6
--- NOTE | ~2023-05-27 | US_ITS ---
EXAMINATION: US renal BI DATE: 05/27/2023 17:20 INDICATION: acute kidney injury TECHNIQUE: Multiple grayscale and Doppler ultrasound images of the kidneys were obtained. COMPARISON: None. FINDINGS: The right kidney measures 10.1 x 5.3 x 5.7 cm. The left kidney measures 11.5 x 5.6 x 4.7 cm. The kidn eys demonstrate normal parenchymal echogenicity. There is no hydronephrosis. The bladder is normal. IMPRESSION: Unremarkable renal sonogram findings. Reviewed, dictated and finalized at location K. EXPERT
--- NOTE | 2023-05-27 09:17 | ECG_ITS ---
Measurements Intervals [employer] Rate: 100 P: 42 AR: 144 QRS: 11 QRSD: 90 T: 21 QT: 362 QTc: 468 Interpretive Statements SINUS TACHYCARDIA LEFT ATRIAL ENLARGEMENT INCOMPLETE RIGHT BUNDLE BRANCH BLOCK CONSIDER INFERIOR INFARCT, AGE INDETERMINATE BASELINE ARTIFACT- II, III, AVF ABNORMAL ECG COMPARED TO ECG 02/15/2022 07:56:40 SINUS TACHYCARDIA NOW PRESENT Electronically Signed On 05-27-2023 12:13:05 RN PRIMARY CARE by Ruslan Ac D.O.
--- NOTE | 2023-05-27 09:39 | ED.OVERDOSE ---
HPI - Overdose General Chief Complaint: Overdose <Estefani Hernadnez PA-C - Last Filed: 05/27/23 12:56> Stated Complaint: overdose by accident <Estefani Hernandez PA-C - Last Filed: 05/27/23 12:56> Time Seen by Provider: 05/27/23 09:18 <Estefani Hernandez PA-C - Last Filed: 05/27/23 12:56> Source: patient <LATOSHA Hampton Last Filed: 05/27/23 12:56> Mode of arrival: wheelchair <LATOSHA Hampton Last Filed: 05/27/23 12:56> Limitations: no limitations <Estefani Hernandez PA-C - Last Filed: 05/27/23 12:56> History of Present Illness HPI Narrative: This is a 52-year-old female that presents to the emergency department after an overdose. Reports she accidentally took 8 of her Amlodipine instead of her Lamictal. This happened at about 6 this morning. She also took all of her other chronic medications. Reports she started to feel not right . She thought that she could not taste the Lamictal like she usually can as it is a chew and swallow. Reports she realized she had taken her Amlodipine instead. Reports she took her blood pressure and it was low. She reports she did the same thing last year. She came in for further evaluation. Reports a headache. Denies vomiting, focal numbness or weakness. <Estefani Hernandez PA-C - Last Filed: 05/27/23 12:56> Related Data Home Medications: Home Medications Medication Instructions Recorded Confirmed amitriptyline 10 mg tablet 10 mg PO HS 08/04/21 05/27/23 amlodipine 10 mg tablet 10 mg PO DAILY ##0 08/04/21 05/27/23 cyanocobalamin (vitamin B-12) 1,000 mcg PO DAILY ##0 08/04/21 05/27/23 1,000 mcg tablet dextroamphetamine-amphetamine 20 20 mg PO BID PRN attention 08/04/21 05/27/23 mg tablet (Adderall) duloxetine 30 mg capsule,delayed 30 mg PO DAILY 08/04/21 05/27/23 release famotidine 40 mg tablet (Pepcid) 40 mg PO BID PRN Indigestion 08/04/21 05/27/23 gabapentin 300 mg tablet 600 mg PO TID 08/04/21 05/27/23 hydroxychloroquine 200 mg tablet 200 mg PO BID 08/04/21 05/27/23 lamotrigine 25 mg chewable 200 mg PO DAILY 08/04/21 05/27/23 dispersible tablet levomefolate calcium 15 mg tablet 15 mg PO DAILY 08/04/21 05/27/23 methotrexate sodium 2.5 mg tablet 20 mg PO WEEKLY ##0 08/04/21 05/27/23 multivitamin 1 tablet PO DAILY ##0 08/04/21 05/27/23 potassium chloride 20 mEq 20 meq PO BID PRN Edema ##0 08/04/21 05/27/23 tablet,extended release promethazine 25 mg rectal 25 mg RECTAL Q6H PRN Nausea ##0 08/04/21 05/27/23 suppository ropinirole 2 mg tablet 2 mg PO HS PRN Restless Leg(S) 08/04/21 05/27/23 tizanidine 4 mg tablet 4 mg PO TID PRN Pain 08/04/21 05/27/23 zolpidem 12.5 mg tablet,extended 12.5 mg PO HS PRN Insomnia 08/04/21 05/27/23 release,multiphase oxycodone-acetaminophen 10 mg-325 1 tablet PO Q6-8H PRN pain 03/27/22 05/27/23 mg tablet furosemide 40 mg tablet 40 mg PO BID PRN swelling 05/27/23 05/27/23 hydroxyzine HCl 25 mg tablet 25 mg PO DAILY PRN Itching 05/27/23 05/27/23 olmesartan 20 mg tablet 20 mg PO DAILY 05/27/23 05/27/23 sumatriptan succinate 6 mg/0.5 mL 6 mg subcut DAILY PRN migrane 05/27/23 05/27/23 subcutaneous pen injector <Estefani Hernandez PA-C - Last Filed: 05/27/23 12:56> Allergies/Adverse Reactions: Allergies Allergy/AdvReac Type Severity Reaction Status Date / Time amoxicillin Allergy Unknown Rash Verified 05/27/23 13:27 meperidine Allergy Unknown Rash Verified 05/27/23 13:27 Penicillins Allergy Unknown Rash Verified 05/27/23 13:27 Sulfa (Sulfonamide Allergy Unknown Hives Verified 05/27/23 13:27 Antibiotics) gadobenic acid Allergy Itching Verified 05/27/23 13:29 [From contrast - MRI] iohexol Allergy Itching Verified 05/27/23 13:29 [From contrast - CT, X-RAY] metoclopramide [From Reglan] AdvReac Agitated Verified 05/27/23 13:29 NSAIDS (Non-Steroidal AdvReac Gastrointestinal Verified 05/27/23 13:29 Anti-Inflamma Upset <Estefani Hernandez PA-C - Last Filed: 05/27/23 12:56> Review o
[2023-05-27 09:40] LABS: Basophils Absolute Auto 0.1 K/mm3 (0.0-0.1); Basophils Percent Auto 0.5 % (0.2-1.2); Eosinophils Absolute Auto 0.2 K/mm3 (0-0.3); Eosinophils Percent Auto 2.1 % (0-4.4); Hematocrit 43.2 % (37.0-47.0); Hemoglobin 13.8 g/dL (12.0-15.0); Immature Granulocyte Absolute 0.06 K/mm3 (0.00-0.031); Immature Granulocyte Percent A 0.5 % (0-0.5); Lymphocytes Percent Auto 30.7 % (18.3-44.2); Mean Corpuscular HGB Conc 31.9 g/dl (32-36); Mean Corpuscular Hemoglobin 29.7 pg (26-34); Mean Corpuscular Volume 92.9 fl (80-100); Mean Platelet Volume 9.4 fl (7.4-10.4); Monocytes Absolute Auto 0.7 K/mm3 (0.1-0.6); Monocytes Percent Auto 6.2 % (2.6-8.5); Neutrophils Absolute Auto 6.7 K/mm3 (1.3-6.7); Platelet Count Result 231 k/mm3 (150-375); Red Blood Count 4.65 M/mm3 (4.2-5.4); Red Cell Distribution Width 13.4 % (11.5-14.5); White Blood Count 11.1 K/mm3 (4.5-10.0)
--- NOTE | 2023-05-27 09:42 | PC.NURSE ---
Spoke with Mark OMALLEY with poison control about pt care. Mark OMALLEY stated Amlodipine peak is 6-12 hours and 1/2 life is 30-50 hours. Watch for hypotension, hypercalcemia, bradycardia, and hyperglycemia Mark OMALLEY instructed to push fluids, monitor heart rate and blood pressure, and give pressors if needed. Mark OMALLEY also suggested a lactate, renal function, and calcium level checks
[2023-05-27 09:50] LABS: Alanine Aminotransferase 37 U/L (6-35); Albumin Level 4.3 g/dL (3.5-5.1); Alkaline Phosphatase 129 U/L (38-126); Anion Gap 13 mmol/L (8-16); Aspartate Amino Transferase 44 U/L (14-36); Bilirubin,Total 0.8 mg/dL (0.2-1.3); Blood Urea Nitrogen 23 mg/dL (7-17); Carbon Dioxide 23 mmol/L (22-30); Chloride 101 mmol/L (98-107); Estimated CRCL calculation 44 ml/min; Estimated Glomerular Filt Rate 30; Glucose 137 mg/dL (65-110); Potassium 3.7 mmol/L (3.4-5.0); Sodium 137 mmol/L (137-145)
[2023-05-27 09:51] LABS: Acetaminophen < 10 ug/mL (10-30); Ethanol < 10 mg/dL (<10); Salicylate < 1.0 mg/dL (2-20)
[2023-05-27] MEDS: SODIUM CHLORIDE 0.9% IV 1,000 ML 999 ML IV CONT ×2 (09:54→11:13)
[2023-05-27 10:34] LABS: Lactic Acid Reflex 2.4 mmol/L (0.7-2.0)
[2023-05-27] MEDS: ACETAMINOPHEN 500 MG TABLET 1000 MG PO (11:11)
[2023-05-27 11:27] LABS: Barbiturate Screen Urine Negative (Negative); Benzodiazepines Screen Urine Negative (Negative)
[2023-05-27 11:33] LABS: Cannabinoid Screen Urine Negative (Negative); Cocaine Screen Urine Negative (Negative); Methadone Screen Urine Negative (Negative); Opiate Screen Urine Negative (Negative); Phencyclidine Screen Urine Negative (Negative)
[2023-05-27 11:36] LABS: Appearance Urine Cloudy (Clear); Bacteria Urine 4+ /hpf; Bilirubin Urine 1+ (Negative); Blood Urine Negative (Negative); Color Urine Dark Yellow (Yellow); Glucose Urine UA Negative (Negative); Hyaline Casts Urine Present /lpf; Ketones Urine 1+ mg/dL (Negative); Leukocyte Esterase Ur Trace LEU/UL (Negative); Mucus Urine Present /lpf; Nitrate Urine Negative (Negative); Non Pathogenic Casts >20; Protein Urine 2+ mg/dL (Negative); Specific Grav Ur 1.022 (1.001-1.035); Squamous Epithelial Cell Urine Moderate /hpf (Few); WBC Urine 0-5 /hpf
[2023-05-27 11:37] LABS: Add Urine Microscopic? YES
[2023-05-27 12:04] LABS: Amphetamine Screen Urine Positive (Negative)
[2023-05-27] MEDS: SODIUM CHLORIDE 0.9% IV 1,000 ML 125 ML IV CONT (12:07)
--- NOTE | 2023-05-27 12:48 | PM.IMHP ---
H&P: HPI History of Present Illness Date/Time: 05/27/23 13:00 Chief Complaint: Accidental overdose. Narrative: This is a 52-year-old female with hypertension, rheumatoid arthritis, chronic pain and anxiety who presented to the emergency department via private vehicle for evaluation after an accidental overdose. The patient provides the following history. This morning at 06:00 she inadvertently took 8 tablets amlodipine 10 mg instead of her Lamictal. A couple of hours thereafter she started to feel ?not right? prompting her to take her blood pressure which was low when she came in for evaluation. She reports being hospitalized last brain after making the same mistake; apparently the 2 medications are very similar in appearance. Her main complaint at this time is that of a migraine headache; oxycodone and promethazine have helped. She denies syncope, near syncope, chest pain, shortness a breath, nausea, and vomiting. She also denies suicidal ideation and reiterates that this was an accidental overdose. In the ED: Blood pressure was as low as 96/83 but has remained stable in the 120s to 130 systolic after 2 L normal saline. Labs were significant for a WBC count of 11.1, BUN 23, creatinine 1.80 (baseline 0.7), lactic acid 2.4. Urine was positive for 4+ bacteria, trace leukocyte esterase, and 0 to 5 WBC. EKG showed no acute ST segment deviations and is relatively unchanged when compared to prior tracings. Poison Control was contacted and they recommended pushing fluids, monitoring heart rate and blood pressure, and vasopressors if indicated; watch for hypotension, hypercalcemia, bradycardia, and hyperglycemia. She is being admitted to the ICU for close monitoring Review of Systems Review of Systems: Twelve systems were reviewed and negative except for HPI. [facility] Past Medical History Medical History Anxiety Chronic pain syndrome Hyperparathyroidism (~2019) Hypertension Neuropathy Rheumatoid arteritis Surgical History Surgical History History of hysterectomy History of parathyroidectomy Status post insertion of spinal cord stimulator Social History Social History Social History: Surrogate medical decision maker: [place], mother. Code status: Full code. Smoking status: Never smoker Alcohol intake: never Substance use: never Substance use type: does not use Lack of Transportation: No Lack of Food: Never True Current Housing: I Have Housing Concerned About Future Housing: No Difficulty Paying Gas/Electric Bills: No Difficulty Paying for Meds: No Currently Unemployed: No Education: Decline to Answer Difficulty w/ Childcare or Family Care: No Spiritual care concerns: No Meds Home Medications and Allergies Home Medications Medication Instructions Recorded Confirmed Type amitriptyline 10 mg tablet 10 mg PO HS 08/04/21 05/27/23 History amlodipine 10 mg tablet 10 mg PO DAILY ##0 08/04/21 05/27/23 History cyanocobalamin (vitamin B-12) 1,000 mcg PO DAILY ##0 08/04/21 05/27/23 History 1,000 mcg tablet dextroamphetamine-amphetamine 20 20 mg PO BID PRN attention 08/04/21 05/27/23 History mg tablet (Adderall) duloxetine 30 mg capsule,delayed 30 mg PO DAILY 08/04/21 05/27/23 History release famotidine 40 mg tablet (Pepcid) 40 mg PO BID PRN Indigestion 08/04/21 05/27/23 History gabapentin 300 mg tablet 600 mg PO TID 08/04/21 05/27/23 History hydroxychloroquine 200 mg tablet 200 mg PO BID 08/04/21 05/27/23 History lamotrigine 25 mg chewable 200 mg PO DAILY 08/04/21 05/27/23 History dispersible tablet levomefolate calcium 15 mg tablet 15 mg PO DAILY 08/04/21 05/27/23 History methotrexate sodium 2.5 mg tablet 20 mg PO WEEKLY ##0 08/04/21 05/27/23 History multivitamin 1 tablet PO DAILY ##0 08/04/21 05/27/23 History pot
--- NOTE | 2023-05-27 12:53 | PC.NURSE ---
Spoke with Mark OMALLEY with poison control regarding pt status she said that she would call back later on
[2023-05-27] MEDS: diphenhydrAMINE HCl INJ 50 MG/ML VIAL 25 MG IV PUSH (12:55)
[2023-05-27 13:10] LABS: Reflex Lactic Acid Yes or No Add Lactic
--- NOTE | 2023-05-27 13:20 | ADMGEN ---
This patient, Rosalinda Manrique, was admitted to Intensive Care Unit-8. Patient/family oriented to hospital policies and general routines including ID bracelet, bed and alarms, visiting hours, pain management, procedures, bathroom and other care routines, personal items, smoking policy, room service/diet, and visiting hours. Information on how to activate the Rapid Response Team has been discussed. Patient/Family are encouraged to report perceived risks to care and to ask questions if they do not understand what they are told or what they should do.
--- NOTE | 2023-05-27 14:09 | WPDCNINT ---
Assessment and Plan Assessment and plan (1) Accidental overdose of calcium-channel robert: Code(s): T46.1X1A - Poisoning by calcium-channel blockers, accidental (unintentional), initial encounter Status: Acute Assessment and Plan: 05/27/23: Patient lacks in took amlodipine 10 mg x8 pills instead of her Lamictal x8 pills -patient was not feeling very right so she checked her blood pressures at home which were low with a systolic in the 70s that prompted her to come to the ER -ER blood pressures were in the 90s, improved with 2 L IV fluid bolus -continue maintenance IV fluids -Poison control was notified from the ER, recommended monitoring blood pressures, calcium level of, glucose levels -will continue to monitor -patient denies any homicidal or suicidal attempt/ideation/behavior (2) Acute kidney injury: Code(s): N17.9 - Acute kidney failure, unspecified Status: Acute Assessment and Plan: Acute kidney injury could be likely secondary to hypotension, decreased oral intake, infection -patient received IV fluid bolus in the ER, will give additional IV fluid bolus here in the ICU -continue to monitor urine output, renal function and electrolytes (3) Elevated lactic acid level: Code(s): R79.89 - Other specified abnormal findings of blood chemistry Status: Acute Assessment and Plan: Elevated lactic acid likely related to hypotension secondary to amlodipine overdose, infection -patient received adequate IV fluids, repeat lactic acid is 1.2 (4) Elevated LFTs: Code(s): R79.89 - Other specified abnormal findings of blood chemistry Status: Acute Assessment and Plan: Chronic elevation of ALT and AST, could be related to medications Plan DVT prophylaxis: Lovenox Stress ulcer prophylaxis: Not indicated Nutrition: Regular diet Code Status: Full code Critical Care Time Spent: 48 minutes Due to a high probability of clinically significant, life threatening deterioration, the patient required my highest level of preparedness to intervene emergently and I personally spent this critical care time directly and personally managing the patient. This critical care time included obtaining a history; examining the patient; pulse oximetry; ordering and review of studies; arranging urgent treatment with development of a management plan; evaluation of patient's response to treatment; frequent reassessment; and discussions with other providers. It was exclusive of separately billable procedures and treating other patients and teaching time. Please see Assessment and Plan section and the rest of the note for further information on patient assessment and treatment This dictation may have been done utilizing a voice recognition system. Attempts have been made to correct errors. However, there may be uncorrected grammatical, spelling, and recognitions errors present. Treasury Analyst Consult Note Consult date: 05/27/23 Reason for consult: Accidental overdose HPI: Rosalinda Manrique is a 52 year old female past medical history of anxiety, ADHD on Adderall, chronic pain syndrome, hyperparathyroidism, essential hypertension, neuropathy, asthma and arthritis presented the ED on 05/27/2023 after taking an accident will overdose EEG states she inadvertently took amlodipine 10 mg x8 pills, sent home for Lamictal she is feeling right, she 2, blood pressure in the systolics were in the 70s, and presented the ER. She did complain of some headache and lightheadedness but denies any syncope or near-syncope episodes. Denies any chest pain, shortness with the nausea vomiting. In the ER her blood pressures were 90s over 80s, she received 2 L normal saline bolus with improvement in her blood pressures. WBC count of 11.1, creatinine of 1.80 (baseline is 0.70) BUN of 23, lactic of 2.4, urine was positive for 4+ bacteria, leukocyte esterase. EKG showed no acute ST-T changes. Poison Control was contacted from the ED
[2023-05-27 14:11] LABS: Lactic Acid 1.2 mmol/L (0.7-2.0)
[2023-05-27 14:12] LABS: Acetaminophen < 10 ug/mL (10-30); Magnesium 2.2 mg/dL (1.6-2.3)
[2023-05-27] MEDS: LACTATED RINGERS 1,000 ML 999 ML IV CONT (14:48)
[2023-05-27] MEDS: ENOXAPARIN 40 MG/0.4 ML SYRINGE SUB-Q (14:49)
[2023-05-27] MEDS: HYDROXYCHLOROQUINE SULFATE 200 MG TABLET PO (17:21)
[2023-05-27] MEDS: oxyCODONE/ACETAMINOPHEN (*CRX) 10-325 MG TABLET 1 TAB PO ×2 (17:21→23:36)
[2023-05-27] MEDS: PROMETHAZINE HCL 25 MG/ML AMPUL 12.5 MG IV PUSH ×2 (19:07→21:57)
[2023-05-27] MEDS: rOPINIRole HCL 1 MG TABLET 2 MG PO (21:33)
[2023-05-27 22:26] LABS: Glucose Point of Care 166 mg/dl (65-105)
[2023-05-27] MEDS: ZOLPIDEM TARTRATE (*CRX) 5 MG TABLET PO (23:36)
[2023-05-27] MEDS: TIZANIDINE HCL 4 MG TABLET PO (23:37)
[2023-05-28] VITALS (11 sets, daily range): BP systolic 100–178; BP diastolic 45–81; PULSE 81–106; RESP 15–25; TEMP 36.3–37.1; O2SAT 98–100
--- NOTE | 2023-05-28 | ECHO_ITS ---
Patient Info Name: Rosalinda Manrique Age: 52 years : 1970 Gender: Female Ht: 65 in Wt: 274 lbs BSA: 2.46 m2 HR: 96 bpm BP: 178 / 81 mmHg Heart Rhythm: Sinus Rhythm Technical Quality: Fair Exam Date: 05/28/2023 8:44 AM Exam Location: Echo Lab Patient Status: Outpatient Admit Date: 05/27/2023 Staff Ordering Physician: Ronald Rosas MD Solid Waste Collection Worker: Lulu Pierson RDCS Attending Provider: Jb Tiwari MD Referring Physician: Alison COOK; Exam Type: CA echo doppler color flow Study Info Indications R01.1 - Cardiac murmur, unspecified Complete two-dimensional, color flow and Doppler transthoracic echocardiogram is performed. Summary 1. Complete two-dimensional, color flow and Doppler transthoracic echocardiogram is performed. 2. Left ventricular hypertrophy with hyperdynamic systolic function and grade 2 diastolic noncompliance. 3. No valvular dysfunction. 4. Sinus rhythm. 5. Compared with echocardiogram from July of 2021 there are no differences to report. Left Ventricle Left ventricular systolic function is hyperdynamic, estimated at Empty. The left ventricular diastolic function is grade II diastolic dysfunction. Right Ventricle Right ventricular chamber dimension is normal. Left Atria Left atrial chamber dimension is normal. Right Atria Right atrial chamber dimension is normal. Aortic Valve The aortic valve is normal. Pulmonic Valve The pulmonic valve is not well visualized. Mitral Valve The mitral valve has normal leaflets. Tricuspid Valve The tricuspid valve leaflets are normal. Pericardium/Pleural The pericardium appears normal. Aorta The aortic root size at the sinus of Valsalva is normal. Left Ventricular Outflow Tract Name Value Normal LVOT 2D LVOT Diameter 2.0 cm LVOT Doppler LVOT Peak Gradient 9 mmHg LVOT Mean Gradient 5 mmHg LVOT VTI 32 cm LVOT VTI/AV VTI Ratio 0.9 LVOT Stroke Volume 102 ml LVOT CO 7.9 l/min LVOT CI 3.2 l/min/m2 Pulmonic Valve Name Value Normal RVOT Doppler RVOT Peak Gradient 4 mmHg PV Doppler PV Peak Gradient 7 mmHg Mitral Valve Name Value Normal MV Doppler MV Decel [place] 755 cm/s2 MV PHT 56 ms MV Area (PHT) 3.9 cm2 4.0-5.0 MV Diastolic Function
[2023-05-28] MEDS: SODIUM CHLORIDE 0.9% IV 1,000 ML 150 ML IV CONT ×2 (00:01→05:50)
[2023-05-28] MEDS: PROMETHAZINE HCL 25 MG/ML AMPUL 12.5 MG IV PUSH ×4 (02:14→17:44)
[2023-05-28 03:49] LABS: Basophils Percent Auto 0.4 % (0.2-1.2); Eosinophils Absolute Auto 0.2 K/mm3 (0-0.3); Eosinophils Percent Auto 2.5 % (0-4.4); Hematocrit 35.5 % (37.0-47.0); Hemoglobin 11.3 g/dL (12.0-15.0); Immature Granulocyte Absolute 0.03 K/mm3 (0.00-0.031); Immature Granulocyte Percent A 0.4 % (0-0.5); Lymphocytes Absolute Auto 2.95 K/mm3 (0.9-3.2); Mean Corpuscular HGB Conc 31.8 g/dl (32-36); Mean Corpuscular Hemoglobin 30.1 pg (26-34); Mean Corpuscular Volume 94.4 fl (80-100); Mean Platelet Volume 9.9 fl (7.4-10.4); Monocytes Absolute Auto 0.4 K/mm3 (0.1-0.6); Monocytes Percent Auto 5.6 % (2.6-8.5); Neutrophils Absolute Auto 3.9 K/mm3 (1.3-6.7); Neutrophils Percent Auto 52.1 % (45.5-73.1); Platelet Count Result 171 k/mm3 (150-375); Red Blood Count 3.76 M/mm3 (4.2-5.4); Red Cell Distribution Width 13.3 % (11.5-14.5); White Blood Count 7.6 K/mm3 (4.5-10.0)
[2023-05-28 04:13] LABS: Alanine Aminotransferase 32 U/L (6-35); Albumin Level 3.5 g/dL (3.5-5.1); Alkaline Phosphatase 101 U/L (38-126); Anion Gap 8 mmol/L (8-16); Aspartate Amino Transferase 35 U/L (14-36); Bilirubin,Total 0.7 mg/dL (0.2-1.3); Blood Urea Nitrogen 19 mg/dL (7-17); Carbon Dioxide 23 mmol/L (22-30); Chloride 107 mmol/L (98-107); Estimated CRCL calculation 86 ml/min; Estimated Glomerular Filt Rate > 60; Glucose 95 mg/dL (65-110); Phosphorus 3.2 mg/dL (2.5-4.5); Potassium 3.6 mmol/L (3.4-5.0); Sodium 138 mmol/L (137-145)
[2023-05-28 04:14] LABS: Lactic Acid Reflex 1.2 mmol/L (0.7-2.0)
[2023-05-28] MEDS: oxyCODONE/ACETAMINOPHEN (*CRX) 10-325 MG TABLET 1 TAB PO ×3 (05:57→17:45)
[2023-05-28] MEDS: TIZANIDINE HCL 4 MG TABLET PO ×3 (06:06→21:26)
--- NOTE | 2023-05-28 09:40 | WPDINTPN ---
Progress Note: A&P Assessment and Plan (1) Accidental overdose of calcium-channel robert: Code(s): T46.1X1A - Poisoning by calcium-channel blockers, accidental (unintentional), initial encounter Status: Acute Assessment and Plan: 05/27/23: Patient lacks in took amlodipine 10 mg x8 pills instead of her Lamictal x8 pills -patient was not feeling very right so she checked her blood pressures at home which were low with a systolic in the 70s that prompted her to come to the ER -ER blood pressures were in the 90s, improved with 2 L IV fluid bolus -continue maintenance IV fluids -Poison control was notified from the ER, recommended monitoring blood pressures, calcium level of, glucose levels -will continue to monitor -patient denies any homicidal or suicidal attempt/ideation/behavior -05/28: blood pressures have been stable, heart rate has been stable, blood sugars have been stable (2) Acute kidney injury: Code(s): N17.9 - Acute kidney failure, unspecified Status: Acute Assessment and Plan: Acute kidney injury could be likely secondary to hypotension, decreased oral intake, infection -patient received IV fluid bolus in the ER, will give additional IV fluid bolus here in the ICU -continue to monitor urine output, renal function and electrolytes -05/28: Creatinine has normalized to 0.90 (1.80 on admission) -lactic acid normalized (3) Elevated lactic acid level: Code(s): R79.89 - Other specified abnormal findings of blood chemistry Status: Acute Assessment and Plan: Elevated lactic acid likely related to hypotension secondary to amlodipine overdose, infection -patient received adequate IV fluids, repeat lactic acid is 1.2 (4) Elevated LFTs: Code(s): R79.89 - Other specified abnormal findings of blood chemistry Status: Acute Assessment and Plan: Chronic elevation of ALT and AST, could be related to medications -LFTs have normalized, could be related to hypovolemia, hemoconcentration Plan DVT prophylaxis: Lovenox Stress ulcer prophylaxis: Not indicated Nutrition: Regular diet Code Status: Full code Critical Care Time Spent: 31 minutes Patient may transfer out of the ICU Due to a high probability of clinically significant, life threatening deterioration, the patient required my highest level of preparedness to intervene emergently and I personally spent this critical care time directly and personally managing the patient. This critical care time included obtaining a history; examining the patient; pulse oximetry; ordering and review of studies; arranging urgent treatment with development of a management plan; evaluation of patient's response to treatment; frequent reassessment; and discussions with other providers. It was exclusive of separately billable procedures and treating other patients and teaching time. Please see Assessment and Plan section and the rest of the note for further information on patient assessment and treatment This dictation may have been done utilizing a voice recognition system. Attempts have been made to correct errors. However, there may be uncorrected grammatical, spelling, and recognitions errors present. Subjective Date/time seen: 05/28/23 09:40 Interval history: Reason for consult: Accident overdose of amlodipine 10 mg x 8 pills 05/28/2023: Patient seen and examined the ICU, is awake, alert, oriented, nonfocal. Blood pressures have been stable, patient has had adequate urine output, afebrile. Denies any chest pain, shortness a breath, abdominal pain, nausea, vomiting. Blood sugars have been controlled. Patient does complain of migraine Review of Systems Review of Systems: All systems reviewed & are unremarkable except as noted in HPI and below Exam Narrative: General: Pleasant female in no acute distress HEENT:? Pupils equal and reactive, sclera is clear, dry oral mucosa Neck:? Supple Respiratory:? Clear to ausculta
[2023-05-28] MEDS: ENOXAPARIN 40 MG/0.4 ML SYRINGE SUB-Q (09:51)
[2023-05-28] MEDS: DULoxetine HCL 30 MG CAPSULE.DR PO (09:52)
[2023-05-28] MEDS: CYANOCOBALAMIN 1,000 MCG TABLET 1000 MCG PO (09:52)
[2023-05-28] MEDS: HYDROXYCHLOROQUINE SULFATE 200 MG TABLET PO ×2 (09:52→16:56)
[2023-05-28] MEDS: lamoTRIgine 100 MG TABLET 200 MG PO (09:52)
[2023-05-28] MEDS: GABAPENTIN 300 MG CAPSULE 600 MG PO ×3 (09:52→16:56)
[2023-05-28] MEDS: MULTIVITAMINS THERAPEUTIC TAB (*BKC) 1 TABLET PO (09:52)
--- NOTE | 2023-05-28 11:43 | PC.NURSE ---
Initiated call with poison control at 1134. Spoke with SHAHRAM López. Patient is cleared per Poison controls standpoint. Patient was cleared at 2215 on 05-27-2023. Patient remains hemodynamically stable at this time.
--- NOTE | 2023-05-28 15:18 | PC.NURSE ---
This patient, Rosalinda Manrique, was received from icu on 05/28/23 at 1445. Patient/family oriented to unit policies and routines
[2023-05-28] MEDS: rOPINIRole HCL 1 MG TABLET 2 MG PO (21:26)
[2023-05-28] MEDS: ZOLPIDEM TARTRATE (*CRX) 5 MG TABLET PO (21:26)
[2023-05-28] MEDS: AMITRIPTYLINE HCL 10 MG TABLET 30 MG PO (21:27)
[2023-05-29] VITALS: PULSE 96
[2023-05-29] MEDS: PROMETHAZINE HCL 25 MG/ML AMPUL 12.5 MG IV PUSH ×3 (03:26→15:24)
[2023-05-29] MEDS: oxyCODONE/ACETAMINOPHEN (*CRX) 10-325 MG TABLET 1 TAB PO ×2 (03:27→09:43)
[2023-05-29 04:00] VITALS: PULSE 86
[2023-05-29 06:00] VITALS: BP 157/82; PULSE 94; RESP 20; TEMP 36.5; O2SAT 98
[2023-05-29 08:00] VITALS: PULSE 89
[2023-05-29] MEDS: TIZANIDINE HCL 4 MG TABLET PO (09:43)
[2023-05-29] MEDS: MULTIVITAMINS THERAPEUTIC TAB (*BKC) 1 TABLET PO (09:44)
[2023-05-29] MEDS: lamoTRIgine 100 MG TABLET 200 MG PO (09:44)
[2023-05-29] MEDS: HYDROXYCHLOROQUINE SULFATE 200 MG TABLET PO (09:44)
[2023-05-29] MEDS: CYANOCOBALAMIN 1,000 MCG TABLET 1000 MCG PO (09:44)
[2023-05-29] MEDS: DULoxetine HCL 30 MG CAPSULE.DR PO (09:44)
[2023-05-29] MEDS: GABAPENTIN 300 MG CAPSULE 600 MG PO ×2 (09:44→13:04)
[2023-05-29] MEDS: ENOXAPARIN 40 MG/0.4 ML SYRINGE SUB-Q (09:45)
[2023-05-29 12:00] VITALS: PULSE 92
[2023-05-29 14:23] VITALS: BP 164/75; PULSE 94; RESP 18; TEMP 36.7; O2SAT 99
--- NOTE | 2023-05-29 14:49 | PM.DS ---
DS: Admitting Diagnosis Discharge Date 05/29/23 Admitting Diagnosis low blood pressure DS: Discharge Diagnosis Discharge Diagnosis (1) Calcium channel robert overdose: Qualifiers: Encounter type: initial encounter Injury intent: accidental or unintentional Qualified Code(s): T46.1X1A - Poisoning by calcium-channel blockers, accidental (unintentional), initial encounter Code(s): T46.1X1A - Poisoning by calcium-channel blockers, accidental (unintentional), initial encounter Status: Acute DS: Summary Hospital Course Hospital Course: 52F accidentally overdosed on CCB. she took 8 of those tablets instead of 8 lamictal. she presented with low blood pressure. she also had RONAL which resolved with fluid administration. her bp return to high-normal and she is discharge home in stable condition. she will follow up with PCP on her meds. she will restart her lasix and amlodipine, and is instructed to monitor her BP for some days and can restart her olmesartan if her BP is consistently high Time Spent with Patient Time attestation: Total time spent providing and/or coordinating discharge services: Exam Const: General: cooperative and no acute distress Resp: Effort & Inspection: normal respiratory effort Auscultation: clear to auscultation bilaterally Cardio: Rate: regular rate Rhythm: regular rhythm Heart sounds: S1 normal heart sound present and S2 normal heart sound present GI: GI Palp: No abdominal tenderness Auscultation: normal bowel sounds DS: Data Data Completed and Pending Labs on day of discharge: Preliminary micro results at discharge 05/27/23 14:29 Blood Culture - Preliminary Blood 05/27/23 13:48 Blood Culture - Preliminary Blood Discharge Plan Discharge Attending physician on discharge: Jami Green Consulting providers: Ronald Rosas Discharging Clinician: Jami Green Patient Disposition: Home, Self-Care Activity: may shower Diet: heart healthy Stand Alone Forms: General Discharge Information Follow-up/Referrals: PHYSICIAN NOT ON STAFF,NONSTAFF [Primary Care Provider] - 2 Weeks (follow up on blood pressure and bp medications) Discharge Medications: Continued oxycodone-acetaminophen 10-325 mg tablet 1 tablet PO Q6-8H PRN (Reason: pain) tizanidine 4 mg tablet 4 mg PO TID PRN (Reason: Pain) amitriptyline 10 mg tablet 10 mg PO HS Rx Instructions: take 1-3 tabs at bedtime duloxetine 30 mg capsule,delayed release(DR/EC) 30 mg PO DAILY zolpidem 12.5 mg tablet,ext release multiphase 12.5 mg PO HS PRN (Reason: Insomnia) lamotrigine 25 mg Tablet, Chewable Dispersible 200 mg PO DAILY Hold Instructions: hold until seen by primary care provider promethazine 25 mg Suppository 25 mg RECTAL Q6H PRN (Reason: Nausea) Qty: 0 dextroamphetamine-amphetamine [Adderall] 20 mg Tablet 20 mg PO BID PRN (Reason: attention) methotrexate sodium 2.5 mg Tablet 20 mg PO WEEKLY Qty: 0 Hold Instructions: hold until seen by primary care provider Rx Instructions: fridays weekly hydroxychloroquine 200 mg Tablet 200 mg PO BID Hold Instructions: hold until seen by primary care provider ropinirole 2 mg Tablet 2 mg PO HS PRN (Reason: Restless Leg(S)) amlodipine 10 mg Tablet 10 mg PO DAILY Qty: 0 gabapentin 300 mg Tablet 600 mg PO TID potassium chloride 20 mEq Tablet Extended Release 20 meq PO BID PRN (Reason: Edema) Qty: 0 Hold Instructions: hold until seen by primary care provider Rx Instructions: take with lasix for potassium supplement. Patient only takes when taking Lasix. cyanocobalamin (vitamin B-12) 1,000 mcg Tablet 1,000 mcg PO DAILY Qty: 0 multivitamin Tablet 1 tablet PO DAILY Qty: 0 famotidine [Pepcid] 40 mg Tablet 40 mg PO BID PRN (Reason: Indigestion) levomefolate calcium 15 mg Tablet 15 mg PO
== END 2023-05-29 16:30 | disposition home or self-care (01) ==
LOC: ANHED 09:54 → ANHICU 12:51 → ANH3MED 05-29 11:22 → ANHICU 05-30 07:47
PROVIDERS: Internal Medicine; Physician Assistant; Admitting Provider Internal Medicine; Emergency Provider Physician Assistant; Visit Provider General Practice
DX: T46.1X1A Poisoning by calcium-channel blockers, accidental (unintentional), initial encounter (principal); N17.9 Acute kidney failure, unspecified; R82.90 Unspecified abnormal findings in urine; R79.89 Other specified abnormal findings of blood chemistry; M05.20 Rheumatoid vasculitis with rheumatoid arthritis of unspecified site; K30 Functional dyspepsia; R60.9 Edema, unspecified; R11.0 Nausea; G25.81 Restless legs syndrome; G47.00 Insomnia, unspecified; R94.31 Abnormal electrocardiogram [ECG] [EKG]; J45.909 Unspecified asthma, uncomplicated; I10 Essential (primary) hypertension; L29.9 Pruritus, unspecified; F41.9 Anxiety disorder, unspecified; F90.9 Attention-deficit hyperactivity disorder, unspecified type; E89.2 Postprocedural hypoparathyroidism; E21.3 Hyperparathyroidism, unspecified; G62.9 Polyneuropathy, unspecified; G89.4 Chronic pain syndrome; G43.909 Migraine, unspecified, not intractable, without status migrainosus; Z79.891 Long term (current) use of opiate analgesic; Z79.899 Other long term (current) drug therapy
CPT/HCPCS: 36415; 76775; 80053; 80307; 81001; 81025; 82948; 83605; 83735; 84100; 84443; 85025; 87040; 87086; 87088; 93005; 93306; 96361; 96365; 96366; 96374; 96375; 96376; 99285; A9270; G0378; J0696; J1200; J1650; J2550; J7030; J7120

== ENCOUNTER 2023-09-05 08:51 | Emergency (ER) | payer MEDICARE, MEDICAID, SELFPAY ==
--- NOTE | 2023-09-05 09:09 | ED.GENADULT ---
HPI - General Adult General Chief complaint: Skin/Abscess/Foreign Body Stated complaint: Rash on Body Source: patient, RN notes reviewed and old records reviewed Mode of arrival: ambulatory Limitations: no limitations History of Present Illness HPI narrative: 52-year-old female presents to [facility] with complaints of rash in the pelvic area, under abdominal fold this started 1 month ago. Patient has been using Desitin ointment with no relief. Patient states rash sykes and has some open areas. Related Data Home Medications Medication Instructions Recorded Confirmed amitriptyline 10 mg tablet 10 mg PO HS 08/04/21 05/27/23 amlodipine 10 mg tablet 10 mg PO DAILY ##0 08/04/21 05/27/23 cyanocobalamin (vitamin B-12) 1,000 mcg PO DAILY ##0 08/04/21 05/27/23 1,000 mcg tablet dextroamphetamine-amphetamine 20 20 mg PO BID PRN attention 08/04/21 05/27/23 mg tablet (Adderall) duloxetine 30 mg capsule,delayed 30 mg PO DAILY 08/04/21 05/27/23 release famotidine 40 mg tablet (Pepcid) 40 mg PO BID PRN Indigestion 08/04/21 05/27/23 gabapentin 300 mg tablet 600 mg PO TID 08/04/21 05/27/23 hydroxychloroquine 200 mg tablet 200 mg PO BID 08/04/21 05/27/23 lamotrigine 25 mg chewable 200 mg PO DAILY 08/04/21 05/27/23 dispersible tablet levomefolate calcium 15 mg tablet 15 mg PO DAILY 08/04/21 05/27/23 methotrexate sodium 2.5 mg tablet 20 mg PO WEEKLY ##0 08/04/21 05/27/23 multivitamin 1 tablet PO DAILY ##0 08/04/21 05/27/23 potassium chloride 20 mEq 20 meq PO BID PRN Edema ##0 08/04/21 05/27/23 tablet,extended release promethazine 25 mg rectal 25 mg RECTAL Q6H PRN Nausea ##0 08/04/21 05/27/23 suppository ropinirole 2 mg tablet 2 mg PO HS PRN Restless Leg(S) 08/04/21 05/27/23 tizanidine 4 mg tablet 4 mg PO TID PRN Pain 08/04/21 05/27/23 zolpidem 12.5 mg tablet,extended 12.5 mg PO HS PRN Insomnia 08/04/21 05/27/23 release,multiphase oxycodone-acetaminophen 10 mg-325 1 tablet PO Q6-8H PRN pain 03/27/22 05/27/23 mg tablet furosemide 40 mg tablet 40 mg PO BID PRN swelling 05/27/23 05/27/23 hydroxyzine HCl 25 mg tablet 25 mg PO DAILY PRN Itching 05/27/23 05/27/23 olmesartan 20 mg tablet 20 mg PO DAILY 05/27/23 05/27/23 sumatriptan succinate 6 mg/0.5 mL 6 mg subcut DAILY PRN migrane 05/27/23 05/27/23 subcutaneous pen injector clindamycin HCl 300 mg capsule mg 09/05/23 dextroamphetamine-amphetamine 20 09/05/23 mg tablet oxycodone-acetaminophen 10 mg-325 tablet 09/05/23 mg tablet zolpidem 12.5 mg tablet,extended mg PO 09/05/23 release,multiphase Allergies Allergy/AdvReac Type Severity Reaction Status Date / Time amoxicillin Allergy Unknown Rash Verified 09/05/23 09:21 meperidine Allergy Unknown Rash Verified 09/05/23 09:21 Penicillins Allergy Unknown Rash Verified 09/05/23 09:21 Sulfa (Sulfonamide Allergy Unknown Hives Verified 09/05/23 09:21 Antibiotics) gadobenic acid Allergy Itching Verified 09/05/23 09:21 [From contrast - MRI] iohexol Allergy Itching Verified 09/05/23 09:21 [From contrast - CT, X-RAY] metoclopramide [From Reglan] AdvReac Agitated Verified 09/05/23 09:21 NSAIDS (Non-Steroidal AdvReac Gastrointestinal Verified 09/05/23 09:21 Anti-Inflamma Upset Review of Systems Constitutional: Constitutional: Reports no additional constitutional complaints, Denies body ache(s), Denies chills, Denies fatigue, Denies fever(s) and Denies headache(s) Eyes: Eyes: Reports no additional eye complaints and Denies blurry vision ENT: Reports system reviewed and no additional complaints, except as documented, Denies vertigo, Denies dizziness, Denies ear discharge, Denies otalgia, Denies facial pain, Denies headache(s), Denies nasal congestion, Denies nasal discharge, Denies sinus pain, Denies sinus pressure and Denies sore throat Cardiovascular: Cardiovascular: Reports no additional cardiovascular complaints, Denies chest pain, Denies chest pain at rest, Denies rapid heart rate and Denies dyspnea Re
[2023-09-05 09:18] VITALS: BP 153/87; PULSE 83; RESP 18; TEMP 36.4; O2SAT 96
== END 2023-09-05 09:33 | disposition home or self-care (01) ==
PROVIDERS: Emergency Provider Registered Nurse
DX: B37.2 Candidiasis of skin and nail (principal); I10 Essential (primary) hypertension; G62.9 Polyneuropathy, unspecified; M06.9 Rheumatoid arthritis, unspecified; E21.3 Hyperparathyroidism, unspecified; F41.9 Anxiety disorder, unspecified; Z90.89 Acquired absence of other organs; Z96.82 Presence of neurostimulator
CPT/HCPCS: 99213; G0463

== ENCOUNTER 2023-10-25 16:34 | Emergency (ER) | payer MEDICARE, MEDICAID, SELFPAY ==
--- NOTE | ~2023-10-25 | XR_ITS ---
XR wrist RT min 3V 10/25/2023 17:05 Indication: Status post fall. Right wrist pain. Procedure: 3 views right wrist Comparison: No prior studies for comparison. Findings: There is a transverse extra-articular fracture distal radial metaphysis with mild dorsal ti lt. There is a minimally displaced ulnar styloid avulsion fracture. 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 Impression: 1: Transverse extra-articular fracture distal right radial metaphysis. 2: Minimally displaced ulnar styloid avulsion fracture. Reviewed, dictated and finalized at location A. Impression: 1: Transverse extra-articular fracture distal right radial metaphysis. 2: Minimally displaced ulnar styloid avulsion fracture.
[2023-10-25 16:41] VITALS: BP 185/98; PULSE 101; RESP 16; TEMP 36.6; O2SAT 97
--- NOTE | 2023-10-25 17:50 | ED.FALL ---
HPI - Fall General Chief Complaint: Fall Stated Complaint: wrist pain post fall Time Seen by Provider: 10/25/23 16:43 History of Present Illness HPI Narrative: 53-year-old female multiple medical problems presents to the emergency room for evaluation of right wrist pain status post fall. Patient has a history of a prior of right distal radial fracture required hardware. Patient states the hardware was removed following infection. States she was out in the garden earlier today where she fell forward on an outstretched arm. Wrist pain is worse with movement. Of is on long-term Percocet for pain relief. States the Percocet did not help her pain Related Data Home Medications Medication Instructions Recorded Confirmed amitriptyline 10 mg tablet 10 mg PO HS 08/04/21 05/27/23 amlodipine 10 mg tablet 10 mg PO DAILY ##0 08/04/21 05/27/23 cyanocobalamin (vitamin B-12) 1,000 mcg PO DAILY ##0 08/04/21 05/27/23 1,000 mcg tablet dextroamphetamine-amphetamine 20 20 mg PO BID PRN attention 08/04/21 05/27/23 mg tablet (Adderall) duloxetine 30 mg capsule,delayed 30 mg PO DAILY 08/04/21 05/27/23 release famotidine 40 mg tablet (Pepcid) 40 mg PO BID PRN Indigestion 08/04/21 05/27/23 gabapentin 300 mg tablet 600 mg PO TID 08/04/21 05/27/23 hydroxychloroquine 200 mg tablet 200 mg PO BID 08/04/21 05/27/23 lamotrigine 25 mg chewable 200 mg PO DAILY 08/04/21 05/27/23 dispersible tablet levomefolate calcium 15 mg tablet 15 mg PO DAILY 08/04/21 05/27/23 methotrexate sodium 2.5 mg tablet 20 mg PO WEEKLY ##0 08/04/21 05/27/23 multivitamin 1 tablet PO DAILY ##0 08/04/21 05/27/23 potassium chloride 20 mEq 20 meq PO BID PRN Edema ##0 08/04/21 05/27/23 tablet,extended release promethazine 25 mg rectal 25 mg RECTAL Q6H PRN Nausea ##0 08/04/21 05/27/23 suppository ropinirole 2 mg tablet 2 mg PO HS PRN Restless Leg(S) 08/04/21 05/27/23 tizanidine 4 mg tablet 4 mg PO TID PRN Pain 08/04/21 05/27/23 zolpidem 12.5 mg tablet,extended 12.5 mg PO HS PRN Insomnia 08/04/21 05/27/23 release,multiphase oxycodone-acetaminophen 10 mg-325 1 tablet PO Q6-8H PRN pain 03/27/22 05/27/23 mg tablet furosemide 40 mg tablet 40 mg PO BID PRN swelling 05/27/23 05/27/23 hydroxyzine HCl 25 mg tablet 25 mg PO DAILY PRN Itching 05/27/23 05/27/23 olmesartan 20 mg tablet 20 mg PO DAILY 05/27/23 05/27/23 sumatriptan succinate 6 mg/0.5 mL 6 mg subcut DAILY PRN migrane 05/27/23 05/27/23 subcutaneous pen injector clindamycin HCl 300 mg capsule mg 09/05/23 dextroamphetamine-amphetamine 20 09/05/23 mg tablet oxycodone-acetaminophen 10 mg-325 tablet 09/05/23 mg tablet zolpidem 12.5 mg tablet,extended mg PO 09/05/23 release,multiphase Allergies Allergy/AdvReac Type Severity Reaction Status Date / Time amoxicillin Allergy Unknown Rash Verified 10/25/23 16:36 meperidine Allergy Unknown Rash Verified 10/25/23 16:36 Penicillins Allergy Unknown Rash Verified 10/25/23 16:36 Sulfa (Sulfonamide Allergy Unknown Hives Verified 10/25/23 16:36 Antibiotics) gadobenic acid Allergy Itching Verified 10/25/23 16:36 [From contrast - MRI] iohexol Allergy Itching Verified 10/25/23 16:36 [From contrast - CT, X-RAY] metoclopramide [From Reglan] AdvReac Agitated Verified 10/25/23 16:36 NSAIDS (Non-Steroidal AdvReac Gastrointestinal Verified 10/25/23 16:36 Anti-Inflamma Upset Review of Systems Review of Systems: CONSTITUTIONAL: Denies fever, chills, or sweats. EYES: Denies visual changes, redness, or discharge. ENT: Denies rhinorrhea, congestion, sore throat, or otalgia. CARDIOVASCULAR: Denies chest pain, palpitations, or edema. RESPIRATORY: Denies cough or dyspnea. GASTROINTESTINAL: Denies abdominal pain, nausea, vomiting, or diarrhea. GENITOURINARY: Denies dysuria or hematuria. SKIN: Denies rash or itching. MUSCULOSKELETAL: Reports right wrist pain NEUROLOGIC: Denies headache, numbness, dizziness, or weakness. PSYCHIATRIC: Denies anxiety or depression.
[2023-10-25] MEDS: diphenhydrAMINE HCl INJ 50 MG/ML VIAL 25 MG IV PUSH (18:06)
[2023-10-25] MEDS: fentaNYL CITRATE INJ (*CRX) 100 MCG/2 ML VIAL 50 MCG IV PUSH (18:06)
[2023-10-25 18:58] VITALS: BP 145/86; PULSE 97; RESP 22; TEMP 36.8; O2SAT 99
--- NOTE | 2023-10-25 19:00 | PC.NURSE ---
prior to applying splint pt demanded that they get IV pain medication before attempting splint, stating PO medication will not be enough. provider cancelled PO medication and ordered IV fentanyl 50mcg. when going to administer medication pt states that they must have Benadryl before Fentanyl because they do not want to get itchy. provider verbal-order read back ordered Benadryl 25mg. after administration of medication and splint/sling application, pt demanded that they get admitted for pain control. notified provider and educated pt that this can be managed outpatient. pt states they will attempt to go to another ER for further pain control, provider notified.
== END 2023-10-25 19:04 | disposition home or self-care (01) ==
LOC: ANHED 18:26
PROVIDERS: Emergency Provider Nurse Practitioner Family
DX: S52.551A Other extraarticular fracture of lower end of right radius, initial encounter for closed fracture (principal); S52.611A Displaced fracture of right ulna styloid process, initial encounter for closed fracture; G89.4 Chronic pain syndrome; F41.9 Anxiety disorder, unspecified; Z96.82 Presence of neurostimulator; Z90.710 Acquired absence of both cervix and uterus; Z90.89 Acquired absence of other organs; G62.9 Polyneuropathy, unspecified; W18.30XA Fall on same level, unspecified, initial encounter
CPT/HCPCS: 29125; 73110; 96374; 96375; 99284; A4565; J1200; J3010

== ENCOUNTER 2024-05-24 11:19 | Outpatient (CLI) | payer MEDICARE, MEDICAID, SELFPAY ==
--- NOTE | ~2024-05-24 | XR_ITS ---
EXAM: [id number] DATE: 05/24/2024 11:58 HISTORY: Neck pain . COMPARISON: None available. FINDINGS: Anterior and posterior fusion hardware spanning C5-6. Laryngeal implant. Surgical clips ove r the lower neck. Stimulator leads, the right lead terminates posterior to C2, the left lead terminat es posterior to the C2-3 disc space. C5-6 interbody fusion. Mild facet arthropathy. Trace anterolisth eses at C3-4 and C4-5. IMPRESSION: Stimulator leads terminate posterior to C2/C2-3. No radiographic evidence of cervical spi ne hardware related complication. Reviewed, dictated and finalized at location K. EONTOLOGIST IMPRESSION: Stimulator leads terminate posterior to C2/C2-3. No radiographic ev idence of cervical spine hardware related complication.
== END 2024-05-24 11:20 | disposition home or self-care (01) ==
DX: M96.1 Postlaminectomy syndrome, not elsewhere classified (principal); G90.511 Complex regional pain syndrome I of right upper limb; M54.2 Cervicalgia; Z98.1 Arthrodesis status; Z96.82 Presence of neurostimulator
CPT/HCPCS: 72040

== ENCOUNTER 2024-10-10 13:31 | Outpatient (CLI) | payer MEDICARE, SELFPAY ==
--- OUTSIDE RECORDS SUMMARY | 2024-10-10 13:43 | XMS_ITS | Clinical Summary ---
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 performed at: [facility] [address] [facility] [id number] Catrachita Wilson DO LAB - CHEMISTRY OR DERABLES Performing Organization Address [facility]/[place]UST de Phone Number [facility] ACCOUNT BILL [address] [place] [address] * ENDOSCOPY, COLON, SCREENING (03/02/2023 9:37 AM CDT) Report Endoscopy POC _ Patient Name: Rosalinda Manrique Santhosh Procedure Date: 03/02/2023 9:37 AM Date of : 1970 Admit Type: Outpatient Age: 52 Room: ROOM 1 Gender: Female Attending MD: Dona Marbellacristobal Kelly , , [id number] _ Procedure: Colonoscopy Indications: Screening for colorectal malignant neoplasm Providers: Dona Kelly, Britany Angeles RN, Estefani Wells, SHAHRAM, Slime Bridges, Nenita Kearns (Anesthesia Staff) Medicines: Propofol per Anesthesia Complications: No immediate complications. _ Estimated Blood Loss: Estimated blood loss: none. Procedure: Pre-Anesthesia Assessment: - Prior to the procedure, a History and Physical was performed, and patient medications and allergies were reviewed. The patient's tolerance of previous anesthesia was also reviewed. The risks and benefits of the procedure and the sedation options and risks were discussed with the patient. All questions were answered, and informed consent was obtained. Prior Anticoagulants: The patient has taken no anticoagulant or antiplatelet agents. ASA Grade Assessment: III - A patient with severe systemic disease. After reviewing the risks and benefits, the patient was deemed in satisfactory condition to undergo the procedure. After I obtained informed consent, the scope was passed under direct vision. Throughout the procedure, the patient's blood pressure, pulse, and oxygen saturations were monitored continuously. The Endoscope was introduced through the anus and advanced to the cecum, identified by appendiceal orifice and ileocecal valve. The ileocecal valve, appendiceal orifice, and rectum were photographed. The entire colon was examined. The colonoscopy was performed without difficulty. The patient tolerated the procedure well. The quality of the bowel preparation was evaluated using the BBPS ([place] Bowel Preparation Scale) with scores of: Right Colon = 2 (minor amount of residual staining, small fragments of stool and/or opaque liquid, but mucosa seen well), Transverse Colon = 2 (minor amount of residual staining, small fragments of stool and/or opaque liquid, but mucosa seen well) and Left Colon = 3 (entire mucosa seen well with no residual staining, small fragments of stool or opaque liquid). The total BBPS score equals 7. The quality of the bowel preparation was fair. Findings: The perianal and digital rectal examinations were normal. The colon (entire examined portion) appeared normal. A moderate amount of stool was found in the ascending colon and in the cecum, making visualization difficult. Lavage of the area was performed using a moderate amount of sterile water, resulting in clearance with adequate visualization. Internal hemorrhoids were found during retroflexion. The hemorrhoids were mild. _ Impression: - Preparation of the colon was fair. - The entire examined colon is normal. - Stool in the ascending colon and in the cecum. - Internal hemorrhoids. - No specimens collected. Recommendation: - Discharge patient to home. - Patient has a contact number available for emergencies. The signs and symptoms of potential delayed complications were discussed with the patient. Return to normal activities tomorrow. Written discharge instructions were provided to the patient. - Resume previous diet. - Continue present medications. - Repeat colonoscopy in 10 years for screening purposes. Procedure Code(s): --- Professional --- 11407, Colonoscopy, flexible; diagnostic, including collection of specimen(s) by brushing or washing, when performed (separate procedure) --- Technical --- 81165, Colonoscopy, flexible; diagnostic, including collection of specimen(s) by brushing or washing, when performed (separate procedure) Diagnosis Code(s): --- Professional --- Z12.11, Encounter for screening for malignant neoplasm of colon K64.8, Other hemorrhoids --- Technical --- Z12.11, Encounter for screening for malignant neoplasm of colon K64.8, Other hemorrhoids CPT copyright 2020 [employer]. All rights reserved. The codes documented in this report are preliminary and upon fashion stylist review may be revised to meet current compliance requirements. Dona Kelly Dona Kelly, 03/02/2023 10:10:27 AM This report has been signed electronically. Number of Addenda: 0 Note Initiated On: 03/02/2023 9:37 AM [facility] 03/02/2023 9:37 AM CDT Donapaola Woodruffcallimilad DO GI PROCEDURE ORDERABLES [facility] * MAMMO BILAT SCREENING W MADHU (09/22/2022 11:04 AM SPICE GRINDER) Anatomical Region Laterality Modality Breast Bilateral Mammography 09/22/2022 1:39 PM SPICE GRINDER Impressions 09/22/2022 2:08 PM SPICE GRINDER : No mammographic evidence of malignancy in either breast. ASSESSMENT: BIRADS Category 1: Negative mammogram. RECOMMENDATION: Bilateral screening mammogram in one year. Thank you for allowing us to participate in the care of your patient. [facility] utilizes Prospect[employer] as a reminder system to notify patients of their next recommended mammogram. > Interpreting Provider: Micki Batista MD on 09/22/2022 2:08 PM Narrative 09/22/2022 2:08 PM SPICE GRINDER EXAMINATION: Digital screening mammogram. Low-dose full-field digital breast tomosynthesis examination was performed with synthetic 2D images. Computer assisted detection was utilized. DATE: 09/22/2022 11:04 AM PRIOR: 2017 and prior mammograms dating back to 2013. BREAST PARENCHYMAL DENSITY: There are scattered areas of fibroglandular density. FINDINGS: No suspicious masses, areas of architectural distortion or microcalcifications are evident on synthetic 2D mammogram or tomosynthesis images. There has been no significant interval change since the prior examination. Catrachita Wilson DO MAMMO ORDERABLES * HIV-1 HIV-2 ANTIBODY + HIV P24 AG PANEL (12/26/2021 2:09 PM CDT) HIV Screen 4th Generation w Reflex Non Reactive Non Reactive [facility] ACCOUNT BILL Comment: HIV Negative HIV-1/HIV-2 antibodies and HIV-1 p24 antigen were NOT detected. There is no laboratory evidence of HIV infection. Blood BLOOD SPECIMEN / Unknown 12/26/2021 2:09 PM CDT 12/26/2021 Narrative Resulting Agency Comment Lab Testing performed at: [facility] [address] [facility] [id number] Catrachita Wilson DO LAB - CHEMISTRY OR DERABLES Performing Organization Address City/[facility]/ZIP Co de Phone Number [facility] ACCOUNT BILL [address] [place] [address] * HEPATITIS SCREEN ACUTE (03/18/2013 12:38 PM CDT) Hepatitis A Virus Antibody IgM Negative Negative [facility] ACCOUNT BILL Hepatitis B Virus Surface Antigen Negative Negative [facility] ACCOUNT BILL Hepatitis B Core Virus Antibody IgM Negative Negative [facility] ACCOUNT BILL Hepatitis C Antibody <0.1 0.0 - 0.9 s/co ratio [facility] ACCOUNT BILL Comment: Negative: < 0.8 Indeterminate 0.8 - 0.9 Positive: > 0.9 . In order to reduce the incidence of a false positive result, the CDC recommends that all s/co ratios between 1.0 and 10.9 be confirmed by a more specific supplemental or PCR testing. [facility] HCV Ab w/Reflex to Verification test #[id number]. Blood specimen (specimen) BLOOD SPECIMEN / Unknown 03/18/2013 12:38 PM CDT 03/18/2013 3:23 PM CDT Narrative Resulting Agency Comment [facility] [address] [facility] [id number] Hedy Hernandez MD LAB - CHEMISTRY VERONICA NATARAJAN [facility] ACCOUNT BILL from Last 3 Months or Most Recently Relevant to Health Maintenance Advance Directives * Full Code (Latest Code Status on File) Date Activated Date Inactivated Comments 12/27/2022 1:28 PM 03/02/2023 7:52 AM * Full Code Date Activated Date Inactivated Comments 09/05/2021 1:53 PM 09/06/2021 11:09 AM * Full Code Date Activated Date Inactivated Comments 06/09/2020 2:15 PM 06/10/2020 1:22 PM * Full Code Date Activated Date Inactivated Comments 07/21/2019 10:00 AM 07/23/2019 8:02 PM * Full Code Date Activated Date Inactivated Comments 07/20/2019 10:52 PM 07/21/2019 10:00 AM Care Teams Power Distribution Engineer Relationship Specialty Start Date End Date Catrachita Wilson DO [address] [place] [address] PCP - General Internal Medicine 12/26/21 Catrachita Wilson DO [address] [place] [address] PCP - Attributed-[facility] 12/14/21 Bessy Cifuentes MD [address] [place] [address] Special Trackwork Blacksmith Obstetrics and Gynecology 11/27/12 Gustabo Pike MD [address] [place] [address] Sleep Medicine 06/25/17 Gifty Vu, RN 01/02/18 Beau Harper MD [address] [place] [address] [address] [place] [address] Anesthesiology-Pain Management 04/11/18 Jesus Monterroso MD [address] [place] [address] [address] [place] [address] Otolaryngology 04/23/20 Bella Hager MD [address] [place] [address] [address] [place] [address] Rheumatology 11/12/20 [place] [address] Charisma ZAMBRANO [address] [address] Anesthesiology 05/02/23
--- OUTSIDE RECORDS SUMMARY | 2024-10-10 13:43 | XMS_ITS | Clinical Summary ---
Author Organization [facility] Address [address] [place] [address] Care Team Providers Care Regional Manager Name Role Phone Becca Alvarez MD Primary Care Provider Unavailabl e Allergies Active Allergy Reactions Criticality Noted Date Comments Ampicillin Itching 01/07/2021 Prochlorperazine Other (see comment) 01/07/2021 Flight reaction Iodine Hives,Itching 01/07/2021 Meperidine Hives 01/07/2021 Ibuprofen Other (see comment) 01/07/2021 Gastric bypass Metoclopramide Other (see comment) 01/07/2021 Flight reaction Sulfa Antibiotics Rash Low 01/07/2021 Medications amitriptyline 10 MG tablet Take 10-30 mg by mouth nightly at bedtime. 1 Active amphetamine-dext roamphetamine 20 MG tablet Take 20 mg by mouth 2 (two) times daily as needed. 1 Active cyclobenzaprine 10 MG tablet Take 10 mg by mouth 3 (three) times daily as needed. 1 Active DULoxetine 30 MG capsule Take 30 mg by mouth 2 (two) times daily. 1 Active vitamin D2, ergocalciferol, 46705 UNITS capsule Take 50,000 Units by mouth every 7 days. Sunday 1 Active furosemide 40 MG tablet Take 40 mg by mouth 2 (two) times daily as needed. Take when legs are swollen 1 Active gabapentin 300 MG capsule Take 600 mg by mouth 3 (three) times daily. 1 Active hydroxychloroqui ne 200 MG tablet Take 200 mg by mouth 2 (two) times daily. 1 Active lamoTRIgine 25 MG chew Chew 200 mg by mouth daily. 1 Active methotrexate 2.5 MG tablet Take 20 mg by mouth weekly. Sunday 1 Active modafinil 200 MG tabletIndication s:to 'improve alertness' Take 100-200 mg by mouth 2 (two) times daily. Indications: to 'improve alertness' 1 Active multi vitamin/minerals tablet Take 1 tablet by mouth daily. Active potassium chloride CR 20 MEQ Tab CR tablet Take 20 mEq by mouth 2 (two) times daily as needed. Take with furosemide 1 Active rOPINIRole 2 MG tablet Take 2 mg by mouth nightly as needed. at bedtime. 1 Active tiZANidine 4 MG tablet Take 4 mg by mouth 3 (three) times daily as needed. 1 Active zolpidem CR 12.5 MG tablet Take 12.5 mg by mouth nightly at bedtime. at bedtime. 1 Active amLODIPine 10 MG tablet Take 10 mg by mouth daily. Active promethazine (PROMETHEGAN) [address] 25 mg rectally every 6 (six) hours as needed for Nausea. Active Multiple Vitamins-Calcium (VIACTIV MULTI-VITAMIN OR) Take 2 tablets by mouth daily. Active estradiol 1 MG tabletIndication s:total hysterectomy Take 1 mg by mouth daily. Indications: total hysterectomy Active oxyCODONE-acetam inophen 10-325 MG tabletIndication s:Acute Pain < 7 Day Supply Take 1 tablet by mouth every 8 (eight) hours as needed for Pain. Indications: Acute Pain < 7 Day Supply 21 tablet 1 Active hydroCHLOROthiaz ron 25 MG tablet Take 1 tablet (25 mg total) by mouth daily. 30 tablet 1 Active SUMAtriptan Succinate 6 MG/0.5ML Solution Auto-injector Inject 0.5 mLs (6 mg total) into the skin 2 (two) times daily as needed (migraines). 15 mL 1 Active Active Problems Problem Noted Date Diagnosed Date Chronic pain 07/04/2021 Resolved Problems Problem Noted Date Diagnosed Date Resolved Date Hypokalemia 07/04/2021 07/04/2021 Hypertensive urgency 07/04/2021 021 Nausea & vomiting 07/01/2021 07/04/2021 Social History Tobacco Use Types Packs/Day Years Used Date Smoking Tobacco: Never Smokeless Tobacco: Never Alcohol Use Standard Drinks/Week Comments Not Currently 0 (1 standard drink = 0.6 oz pur e alcohol) Comments No Sex and Gender Information Value Date Recorded Sex Assigned at Not on file Legal Sex Female 12:03 PM CDT Gender Identity Not on file Sexual Orientation Not on file Last Filed Vital Signs Vital Sign Reading Time Taken Comments Blood Pressure 163/80 07/04/2021 9:02 AM TOMATO GRADER Pulse 107 07/04/2021 5:47 AM TOMATO GRADER Temperature 36.9 C (98.4 F) 07/04/2021 9:02 AM TOMATO GRADER Respiratory Rate 18 07/04/2021 9:02 AM TOMATO GRADER Oxygen Saturation 98% 07/04/2021 9:02 AM TOMATO GRADER Inhaled Oxygen Concentration - - Weight 130.6 kg (287 lb 14.7 oz) 07/04/2021 5:47 AM TOMATO GRADER Height 165.1 cm (5' 5 ) 07/01/2021 1:59 PM TOMATO GRADER Body Mass Index 47.91 07/01/2021 1:59 PM TOMATO GRADER Plan of Treatment Health Maintenance Due Date Last Done Comments Colorectal Cancer Screening Colonoscopy (10 Years) 1970 Annual Physical 10/20/1974 Hepatitis C 10/20/1989 Hepatitis B Vaccines (1 of 3 - 19+ 3-dose series) 10/20/1990 Mammogram Screening 2011 Zoster Vaccines (1 of 2) 10/20/2021 COVID-19 Vaccine ( - season) 2024 Influenza Adult (#1) 2024 04/05/2021, 04/15/2020, 06/06/2019, Additional history exists DTaP, Tdap and Td Vaccines (3 - Td or Tdap) 05/21/2024 05/21/2014, 01/13/2008 Pneumococcal Vaccine: Pediatrics (0 to 5 Years) and At-Risk Patients (6 to 64 Years) Aged Out 05/14/2010 No longer eligible based on patient's age to complete this topic Meningococcal B Vaccine Aged Out No l onger eligible based on patient's age to complete this topic Meningococcal Vaccine Aged Out No violeta breana eligible based on patient's age to complete this topic RSV Immunizations Under 20 Months Aged Out No longer eligible based on patient's age to complete this topic Insurance [facility] MEDICAID Advance Directives * Full Code (Latest Code Status on File) Date Activated Date Inactivated Comments 07/01/2021 8:54 PM 07/04/2021 2:57 PM Care Teams Regional Manager Relationship Specialty Start Date End Date Becca Alvarez MD PCP - General FAMILY PRACTICE 01/07/21
--- OUTSIDE RECORDS SUMMARY | 2024-10-10 13:43 | XMS_ITS | Encounter Summary ---
Author Organization [facility] Address [address] [place] [address] Care Team Providers Care Meters Superintendent Name Role Phone Becca Alvarez MD Primary Care Provider UnavailBessy Jerry MD Unavailable Marcos Reardon MD Unavailable [phone] Migdalia Ramesh MD Unavailable Migel Lovelace MD Unavailable Mary Juarez APRN-PIPELINE TECHNICIAN Unavailable Becca Alvarez MD Unavailable Unavailable Gustabo Pike MD Unavailable Gifty Vu RN Unavailable UnavailBeau Elizabeth MD Unavailable Hedy Hernandez MD Unavailable Antonina Dutta RN Unavailable Jesus Monterroso MD Unavailable [phone] Bella Hager MD Unavailable Becca Alvarez MD Unavailable Unavailable Catrachita Wilson DO Primary Care Provider [phone] Catrachita Wilson DO Unavailable [phone] Antonina Dutta RN Unavailable Phan Saucedo MD Unavailable [phone] Antonina Dutta RN Unavailable Encounter Details Date Type Department Care Team (Late Contact Info) Description 02/27/2017 [facility] Outpatient Visit [facility] [address] [place] [address] Document, Scanned Social History Tobacco Use Types Packs/Day Years Used Date Smoking Tobacco: Never Smokeless Tobacco: Never Alcohol Use Standard Drinks/Week Comments No 0 (1 standard drink = 0.6 oz pur e alcohol) Sex and Gender Information Value Date Recorded Sex Assigned at Female 09/29/2021 6:50 AM CDT Gender Identity Female 09/29/2021 6:50 AM CDT Sexual Orientation Straight 09/29/2021 6: 50 AM CDT documented as of this encounter Functional Status Functional Status Response Date of Assess ment Is person deaf or have serious hearing difficult y? No 07/17/2015 Is person blind or have serious difficulty seein g? No 07/17/2015 Does person have serious dif ficulty walking/climbing stairs? No 07/17/2015 Does person have difficulty dressing/bathing? No 07/17/2015 Does person have difficulty doing errands alone? No 07/17/2015 Cognitive Status Response Date of Assessm ent Does person have difficulty concentrating/remembering/making decisions? No 07/17/2015 documented as of this encounter Plan of Treatment Upcoming Encounters Date Type Department Care Team (Late Contact Info) Description 11/11/2024 2:30 PM CDT Office Visit [facility] [address] [place] [address] Krista Rangel, JED-PIPELINE TECHNICIAN [address] [place] [address] 12/22/2024 2:00 PM CDT Office Visit [facility] - Internal Medicine [address] [place], [place] [id number] Catrachita Wilson DO [address] [facility] [place] [address] documented as of this encounter Goals Goal Patient Goal Type Associated Problems Recent Progress Patient-Stated? Author Blood Pressure < 140/90 Blood Pressure 129/73( 025 11:18 AM CDT) Joanne Rowland MA documented as of this encounter Visit Diagnoses Not on filedocumented in this encounter Additional Health Concerns Infection Onset Date Last Indicated Resolved Time COVID-19 Under Investigation 12/06/2020 12/06/2020 12/06/2020 4:17 PM CDT documented as of this encounter Care Teams Meters Superintendent Relationship Specialty Start Date End Date Becca Alvarez MD PCP - General 04/05/12 12/25/21 Becca Alvarez MD Need updated address PCP - Attributed-[facility] 12/19/16 06/30/21 Becca Alvarez MD Need updated address PCP - Attributed-[facility] 08/16/21 12/13/21 Catrachita Wilson DO [address] [place] [address] PCP - General Internal Medicine 12/26/21 Catrachita Wilson DO [address] [place] [address] PCP - Attributed-[facility] 12/14/21 Bessy Cifuentes MD [facility] [address] [place] [address] Family Practice Physician Obstetrics and Gynecology 11/27/12 [place] [address] [facility] [address] [place] [address] Psychiatry 11/27/12 04/10/18 [place] [address] [facility] [address] [place] [address] Neurology 03/24/15 04/10/18 Migel Lovelace MD [address] [facility] [address] [place] [address] Anesthesiology 09/08/15 04/10/18 Mary Juarez APRN-PIPELINE TECHNICIAN [address] [facility] [address] [place] [address] Anesthesiology-Pain Management 12/08/16 04/10/18 Gustabo Pike MD Need updated address Sleep Medicine 06/25/17 Gifty Vu RN 01/02/18 Beau Harper MD [address] [place] [address] Anesthesiology-Pain Management 04/11/18 Hedy Hernandez MD [address] [place] [address] Rheumatology 04/11/18 11/11/20 Antonina Dutta RN Eeg TechnologistSupervisor [place] 07/24/19 08/31/19 Jesus Monterroso MD Otolaryngology 04/23/20 Bella Hager MD [address] [place] [address] [address] [place] [id number] Rheumatology 11/12/20 Antonina Dutta RN Eeg TechnologistSupervisor [place]ry 01/11/23 03/21/23 [place] [address] [place] [id number] Anesthesiology 05/02/23 Antonina Dutta RN Eeg TechnologistSupervisor [place]ry 02/18/24 03/20/24 documented as of this encounter
--- OUTSIDE RECORDS SUMMARY | 2024-10-10 13:43 | XMS_ITS | Encounter Summary ---
Author Organization [facility] Address [address] [place] [address] Care Team Providers Care Lathe Turner Name Role Phone Becca Alvarez MD Primary Care Provider UnavailBessy Jerry MD Unavailable Marcos Reardon MD Unavailable [phone] Migdalia Ramesh MD Unavailable Migel Lovelace MD Unavailable Mary Juarez APRN-FINANCIAL FOUNDATIONS REPRESENTATIVE Unavailable Becca Alvarez MD Unavailable Unavailable Gustabo Pike MD Unavailable Gifty Vu RN Unavailable UnavailBeau Elizabeth MD Unavailable Hedy Hernandez MD Unavailable Antonina Dutta RN Unavailable Jesus Monterroso MD Unavailable [phone] Bella Hager MD Unavailable Becca Alvarez MD Unavailable Unavailable Catrachita Wilson DO Primary Care Provider [phone] Catrachita Wilson DO Unavailable [phone] Antonina Dutta RN Unavailable Phan Saucedo MD Unavailable [phone] Antonina Dutta RN Unavailable Encounter Details Date Type Department Care Team (Late Contact Info) Description 09/06/2017 [facility] Outpatient Visit [facility] [address] [place] [address] Document, Scanned Social History Tobacco Use Types [...] Description 11/11/2024 2:30 PM CDT Office Visit [facility] [address] [place] [phone] Krista Rangel, JED-FINANCIAL FOUNDATIONS REPRESENTATIVE [address] [place] [address] 12/22/2024 2:00 PM CDT Office Visit [facility] - Internal Medicine [address] [place], [place] [id number] Catrachita Wilson DO [address] [facility] [place] [address] documented as of this encounter [...] documented as of this encounter Care Teams Lathe Turner Relationship Specialty Start Date End Date Becca Alvarez MD PCP - General 04/05/12 12/25/21 Becca Alvarez MD Need updated address PCP - Attributed-[facility] 12/19/16 06/30/21 Becca Alvarez MD Need updated address PCP - Attributed-[facility] 08/16/21 12/13/21 Catrachita Wilson DO [address] [place] [address] PCP - General Internal Medicine 12/26/21 Catrachita Wilson DO [address] [place] [address] PCP - Attributed-[facility] 12/14/21 Bessy Cifuentes MD [facility] [address] [place] [address] Public Finance Specialist Obstetrics and Gynecology 11/27/12 [place] [address] [facility] [address] [place] [address] Psychiatry 11/27/12 04/10/18 [place] [address] [facility] [address] [place] [address] Neurology 03/24/15 04/10/18 Migel Lovelace MD [address] [facility] [address] [place] [address] Anesthesiology 09/08/15 04/10/18 Mary Juarez APRN-FINANCIAL FOUNDATIONS REPRESENTATIVE [address] [facility] [address] [place] [address] Anesthesiology-Pain Management 12/08/16 04/10/18 Gustabo Pike MD Need updated address Sleep Medicine 06/25/17 Gifty Vu RN 01/02/18 Beau Harper MD [address] [place] [address] Anesthesiology-Pain Management 04/11/18 Hedy Hernandez MD [address] [place] [address] Rheumatology 04/11/18 11/11/20 Antonina Dutta RN Software Packaging EngineerCare Associate 07/24/19 08/31/19 Jesus Monterroso MD Otolaryngology 04/23/20 Bella Hager MD [address] [place] [address] [address] [place] [phone] Rheumatology 11/12/20 Antonina Dutta RN Software Packaging EngineerCare Associate 01/11/23 03/21/23 [place] [address] [place] [id number] Anesthesiology 05/02/23 Antonina Dutta RN Software Packaging EngineerCare Associate 02/18/24 03/20/24 documented as of this encounter
--- OUTSIDE RECORDS SUMMARY | 2024-10-10 13:43 | XMS_ITS | Encounter Summary ---
Author Organization [facility] Address [address] [facility] [place] [address] Care Team Providers Care Cattery Operator Name Role Phone Becca Alvarez MD Primary Care Provider UnavailBessy Jerry MD Unavailable Marcos Reardon MD Unavailable [phone] Migdalia Ramesh MD Unavailable Migel Lovelace MD Unavailable [phone] Mary Juarez APRN-QUANTITATIVE RESEARCH ANALYST Unavailable Becca Alvarez MD Unavailable Unavailable Gustabo Pike MD Unavailable Gifty Vu RN Unavailable UnavailBeau Elizabeth MD Unavailable Hedy Hernandez MD Unavailable Antonina Dutta RN Unavailable Jesus Monterroso MD Unavailable [phone] Bella Hager MD Unavailable Becca Alvarez MD Unavailable Unavailable Catrachita Wilson DO Primary Care Provider [phone] Catrachita Wilson DO Unavailable [phone] Antonina Dutta RN Unavailable Phan Saucedo MD Unavailable [phone] Antonina Dutta RN Unavailable Encounter Details Date Type Department Care Team (Late Contact Info) Description 10/12/2017 [facility] Outpatient Visit [facility] [address] [place] [address] Document, Scanned Social History Tobacco Use Types [...] Description 11/11/2024 2:30 PM CDT Office Visit [facility] [address] [place] [address] Krista Rangel, JED-QUANTITATIVE RESEARCH ANALYST [address] [place] [address] 12/22/2024 2:00 PM CDT Office Visit [facility] - Internal Medicine [address] [place], [place] [phone] Catrachita Wilson DO [address] [facility] [place] [address] documented as of this encounter [...] documented as of this encounter Care Teams Cattery Operator Relationship Specialty Start Date End Date Becca Alvarez MD PCP - General 04/05/12 12/25/21 Becca Alvarez MD Need updated address PCP - [facility] 12/19/16 06/30/21 Becca Alvarez MD Need updated address PCP - Attributed-[facility] 08/16/21 12/13/21 Catrachita Wilson DO [address] [place] [address] PCP - General Internal Medicine 12/26/21 Catrachita Wilson DO [address] [place] [address] PCP - Attributed-[facility] 12/14/21 Bessy Cifuentes MD [facility] [address] [place] [address] Principal Administrative Clerk Obstetrics and Gynecology 11/27/12 [place] [address] [facility] [address] [place] [address] Psychiatry 11/27/12 04/10/18 [place] [address] [facility] [address] [place] [address] Neurology 03/24/15 04/10/18 Migel Lovelace MD [address] [facility] [address] [place] [address] Anesthesiology 09/08/15 04/10/18 Mary Juarez APRN-QUANTITATIVE RESEARCH ANALYST [address] [facility] [address] [place] [address] Anesthesiology-Pain Management 12/08/16 04/10/18 Gustabo Pike MD Need updated address Sleep Medicine 06/25/17 Gifty Vu RN 01/02/18 Beau Harper MD [address] [place] [address] Anesthesiology-Pain Management 04/11/18 Hedy Hernandez MD [address] [place] [address] Rheumatology 04/11/18 11/11/20 Antonina Dutta RN Entry ProcessorEligibility Technician 07/24/19 08/31/19 Jesus Monterroso MD Otolaryngology 04/23/20 Bella Hager MD [address] [place] [address] [address] [place] [phone] Rheumatology 11/12/20 Antonina Dutta RN Entry ProcessorEligibility Technician 01/11/23 03/21/23 [place] [address] [place] [phone] Anesthesiology 05/02/23 Antonina Dutta RN Entry ProcessorEligibility Technician 02/18/24 03/20/24 documented as of this encounter
--- OUTSIDE RECORDS SUMMARY | 2024-10-10 13:43 | XMS_ITS | Clinical Summary ---
Author Organization [facility] Address [address] [place] [address] Care Team Providers Care Oyster Opener Name Role Phone Catrachita Wilson Primary Care Provider [phone] Allergies Active Allergy Reactions Criticality Noted Date Comments Amoxicillin Rash Low 04/30/2023 Iodinated Contrast Media Rash Low 04/30/2023 Need to pre medicate with Benadryl, then I do ok Meperidine Hives High 04/30/2023 Metoclopramide Hcl Other (See Comments) 04/30/2023 Psychiatric symptoms Nsaids (Non-Steroidal Anti-Inflammatory Drug) Other (See Comments) 04/30/2023 PMH gastric bypass Prochlorperazine Other (See Comments) 04/30/2023 Psychiatric symptoms Propofol Itching Low 04/30/2023 Need to pre medicate with Benadryl, then I do ok Sulfa (Sulfonamide Antibiotics) Rash Low 04/30/2023 Medications gabapentin (NEURONTIN) 800 mg tablet Take 800 mg by mouth 3 times daily. Active lamoTRIgine (LaMICtal) 25 mg tablet Take 25 mg by mouth daily. 8 tablets daily Active amLODIPine (NORVASC) 10 mg tablet Take 10 mg by mouth daily. Active DULoxetine (CYMBALTA) 30 mg Capsule, Delayed Release(E.C.) Take 30 mg by mouth 2 times daily. Active tiZANidine (ZANAFLEX) 4 mg Tablet Take 4 mg by mouth every 8 hours as needed for Spasm. Active amitriptyline (ELAVIL) 10 mg tablet Take 10 mg by mouth nightly as needed for Insomnia. 3 tablets HS PRN Active hydroxychloroqu ine (PLAQUENIL) 200 mg tablet Take 200 mg by mouth 2 times daily. Active olmesartan (BENICAR) 20 mg tablet Take 20 mg by mouth daily. Active oxyCODONE-aceta minophen (PERCOCET) 10-325 mg Tablet Take 1 Tablet by mouth 3 times daily as needed for Pain, Severe. Active zolpidem (AMBIEN CR) 12.5 mg Controlled Release tablet Take 12.5 mg by mouth nightly as needed for Insomnia. Active dextroamphetami ne-amphetamine (ADDERALL) 20 mg tablet Take 20 mg by mouth 2 times daily as needed. Active multivitamin (DAILY-SONIDO) tablet Take 1 Tablet by mouth daily. Active ergocalciferol, vitamin D2, (VITAMIN D ORAL) Take by mouth daily. Active L-methylfolate (DEPLIN) 15 mg Tablet Take by mouth daily. Active cyanocobalamin, vitamin B-12, (VITAMIN B-12 SUBLINGUAL) Place under tongue daily. Active oxyCODONE (ROXICODONE) 10 mg tabletIndicatio ns:Vocal cord paralysis, unilateral complete Take 1 Tablet (10 mg) by mouth every 4 hours as needed for Moderate Pain. Max Daily Amount: 60 mg 20 Tablet 05/05/2023 12:02 PM CDT 3 Active naloxone (NARCAN) 4 mg/spray [place], Non-Aerosol EMERGENCY USE ONLY: Administer 1 spray (4 mg) in one nostril one time. May repeat in alternating nostrils every 2-3 min until responsive or EMS arrives. 2 Each 3 Active Active Problems Problem Noted Date Diagnosed Date Vocal cord paralysis, unilateral complete 2022 Overview (05/04/2023): left, since my parathyroid surgery in 2021 Complex regional pain syndrome affecting both up per arms 05/04/2023 Overview (05/04/2023): Spinal Cord stimulator in place Nerve damage 05/04/2023 Overview (05/04/2023): Right arm Rheumatoid arthritis with negative rheumatoid fa ctor 12/26/2021 Overview (05/05/2023): Rheum: Dr. Hager Chronic pain 07/04/2021 Overview (05/04/2023): On disability. Years ago she had cervical nerve compression as she couldn't move her right arm. Had cervical fusion C5-C6. Then developed severe neck pain. Then had to do a second fusion. Then developed fibromyalgia. Seeing pain specialist. Chronic midline low back pain 07/20/2019 Small fiber neuropathy 03/27/2014 Overview (05/05/2023): Has required very high doses of pain meds for only moderate relief. Interventions have not diminished need for pain med. Opiate dependence 03/12/2012 Overview (05/04/2023): Sees Dr. Reardon who had prescribed suboxone in past. Currently needing pain meds. Onset with multiple pain meds in 2010. Essential hypertension 06/10/2011 Encounters Date Type Department Care Team Description 08/06/2024 External Device Data [facility] ABSTRACTION Provider, Abstract from Last 3 Months Social History Tobacco Use Types Packs/Day Years Used Date Smoking Tobacco: Never Smokeless Tobacco: Never Tobacco Cessation:Counseling Given: Not Answered Alcohol Use Standard Drinks/Week Comments Never 0 (1 standard drink = 0.6 oz pur e alcohol) Feeling Safe Answer Date Recorded Are you in a relationship wi th someone who hurts you emotionally and/or physically? Unable to obtain 05/03/2023 Food Insecurity Answer Date Recorded Social/Environmental Concerns No concerns Transportation Needs Answer Date Record ed Social/Environmental Concerns No concerns Housing Stability Answer Date Recorded Social/Environmental Concerns No concerns Utility Needs Answer Date Recorded Social/Environmental Concerns No concerns Comments No Sex and Gender Information Value Date Recorded Sex Assigned at Not on file Legal Sex Female 2:16 PM FACETOR Gender Identity Not on file Sexual Orientation Not on file Last Filed Vital Signs Vital Sign Reading Time Taken Comments Blood Pressure 114/65 05/05/2023 4:06 AM CDT Pulse 72 05/05/2023 4:06 AM CDT Temperature 36.6 C (97.9 F) 05/05/2023 4:06 AM CDT Respiratory Rate 18 05/04/2023 11:3 9 PM CDT Oxygen Saturation 96% 05/05/2023 4:06 AM CDT Inhaled Oxygen Concentration - - Weight 126.9 kg (279 lb 11.2 oz) 2022 12:28 PM CDT Height 165.1 cm (5' 5 ) 05/03/2023 12:2 8 PM CDT Body Mass Index 46.54 05/03/2023 12:28 PM CDT Plan of Treatment Health Maintenance Due Date Last Done Comments Pre-Diabetes and Diabetes Screening 1970 HEPATITIS B VACCINES (1 of 3 - 19+ 3-dose series) 10/20/1990 ZOSTER VACCINE (1 of 2) 10/20/1990 PAP SMEAR 10/20/2001 FIT-DNA Q 3 years 10/20/2016 FIT/FOBT Q 1 year 10/20/2016 Flex Sig/CT Colonography Q 5 years 10/20/2016 BREAST CANCER SCREENING 09/23/2023 09/22/2022, 09/22 INFLUENZA VACCINE (#1) 2024 , 06/06/2019, 04/11/2018 DTAP/TDAP/TD VACCINES (3 - T d or Tdap) 05/21/2024 05/21/2014, 01/13/2008 COLORECTAL SCREENING 03/02/2033 03/02/2023 Colorectal Cancer Screening 03/02/2033 Medical Devices Implanted Type Area Modeling Agency Manager Device Identifier Shelf Expiration Date Model / Serial / Lot Vocom Vocal Cord Mdlz 6mm [id number] - [id number] Implanted:Qty : 1 on 05/03/2023 by Gio Cannon MD at [facility] Voice Prosthesis N/A: Neck OLYMPUS [id number] 11/14/2031 [id number] / / [id number] Angelia Vocom 0mm Ofs [id number] - [id number] Implanted:Qty : 1 on 05/03/2023 by Gio Cannon MD at [facility] Voice Prosthesis N/A: Neck OLYMPUS [id number] 12/31/2030 [id number] / / [id number] Spinal Cord Stimulator Hardware, C-Spine Fusion Neck Explanted Type Area Modeling Agency Manager Device Identifier Shelf Expiration Date Model / Serial / Lot Angelia Izabela alvarado Ofs [id number] - [id number] Explanted:Qty : 1 on 05/03/2023 by Gio Cannon MD at [facility] Voice Prosthesis N/A: Neck OLYMPUS [id number] 07/01/2030 [id number] / / [id number] [place] [address] [place] [id number] RX [employer] RX Member Subscriber Plan / Payer (Ef fective 2023-Present) Name:Rosalinda Manrique Relation to Subscriber:Not on file Name:Rosalinda Manrique Subscriber ID:Not on file Date of :1970 Payer ID:Not on file Group ID:[id number] Type:RX Medicare Part D Address: [address] Advance Directives For more information, please contact: [phone] * Full Code (Latest Code Status on File) Date Activated Date Inactivated Comments 05/03/2023 4:32 PM 05/05/2023 3:36 PM Care Teams Oyster Opener Relationship Specialty Start Date End Date Catrachita Wilson DO [address] [place] [id number] PCP - General Internal Medicine 05/04/23
--- NOTE | 2024-10-10 13:46 | ECG_ITS ---
Test Date: 2024-10-10 13:53:37 Measurements Intervals [place] Rate: 83 P: 50 DE: 153 QRS: 25 QRSD: 100 T: 35 QT: 382 QTc: 449 Interpretive Statements SINUS RHYTHM POSSIBLE LEFT ATRIAL ENLARGEMENT [-0.1mV P-WAVE IN V1/V2] POSSIBLE RIGHT VENTRICULAR CONDUCTION DELAY [RSR (QR) IN V1/V2] POSSIBLE INFERIOR MYOCARDIAL INFARCTION , PROBABLY OLD [40+ ms Q WAVE AND/OR ST/T ABNORMALITY IN II/aVF] ABDOMEN WAS SHE No previous ECG available for comparison Electronically Signed On 10-11-2024 09:52:18 CDT by Myles Huff M.D.
== END 2024-10-10 13:32 | disposition home or self-care (01) ==
DX: T85.11 Breakdown (mechanical) of implanted electronic stimulator of nervous system (principal); R94.31 Abnormal electrocardiogram [ECG] [EKG]
CPT/HCPCS: 93005